=== PATIENT | female | born 1950 | race Caucasian/White ===

== ENCOUNTER → 2017-06-21 | Outpatient (CLI) | payer MEDICARE ==
--- NOTE | 2017-06-21 12:37 | CT ---
EXAMINATION TYPE: CT sinus wo con DATE OF EXAM: 06/21/2017 COMPARISON: NONE HISTORY: Sinusitis CT DLP: 578 mGycm. Automated Exposure Control for Dose Reduction was Utilized. TECHNIQUE: CT scan of the sinuses is performed without contrast, axial images are obtained, coronal r eformatted images are also reviewed. FINDINGS: The ostia medial complexes are patent bilaterally. No contra bullosa or Lani cells are no juan david. Left middle nasal turbinate is either surgically absent or congenitally hypoplastic. There is le ftward nasal septal deviation with a small 5 mm nasal septal spur. The ethmoid air cells, sphenoid si nus, frontal sinuses, and maxillary sinuses are well aerated. Anterior portions of the visualized mas toid air cells are also well aerated. Calvarium appears intact in its visualized anterior portions. T he globes are intact and orbits are symmetric. Lenses are surgically absent. Exam is limited for eval uation of intracranial structures, however incidental note is made of a partially empty sella turcica . Visualized portions of the ventricles appear symmetric with symmetric prominence of the peripheral sulci. Frontal recesses are patent. Visualized portion of mastoid air cells show no abnormal opacification. The globes are intact bilate rally. IMPRESSION: 1. The sinuses are clear and the ostiomeatal complexes are patent bilaterally. 2. Leftward nasal septal deviation and 5 mm leftward nasal septal spur. 3. 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 4. No Lani cells or sofia bullosa. Frontal recesses are patent.
== END | disposition home or self-care (01) ==
LOC: RADCTMAIN 11:41
PROVIDERS: ATTEND Family Medicine
DX: J34.2 Deviated nasal septum (principal); J34.89 Other specified disorders of nose and nasal sinuses
CPT/HCPCS: 70486

== ENCOUNTER → 2017-10-07 | Outpatient (CLI) | payer MEDICARE ==
--- NOTE | 2017-10-08 10:53 | MM ---
Reason for exam: screening (asymptomatic). Last mammogram was performed 1 year and 2 months ago. History: Patient is postmenopausal and history of other cancer. Family history of breast cancer in paternal cousin. Physical Findings: A clinical breast exam by your physician is recommended on an annual basis and results should be correlated with mammographic findings. MG 3D Screening Mammo W/Cad Bilateral CC and MLO view(s) were taken. Prior study comparison: July 25, 2016, bilateral MG 3d screening mammo w/cad. June 16, 2015, bilateral MG screening mammo w CAD. There are scattered fibroglandular densities. Round 7mm mass 2-3 o'clock right breast new from 2013, gradually enlarged from 2014. Otherwise, no significant change. ASSESSMENT: Incomplete: need additional imaging evaluation, BI-RAD 0 RECOMMENDATION: Ultrasound of the right breast. (2-4 o'clock) [facility] will attempt to contact patient to return for ultrasound.
== END | disposition home or self-care (01) ==
LOC: RADMAMWWP 11:13
PROVIDERS: ATTEND Family Medicine
DX: Z12.31 Encounter for screening mammogram for malignant neoplasm of breast (principal)
CPT/HCPCS: 77063; 77067

== ENCOUNTER → 2017-10-16 | Outpatient (CLI) | payer MEDICARE ==
--- NOTE | 2017-10-16 09:46 | USB ---
Reason for exam: additional evaluation requested from abnormal screening. History: Patient is postmenopausal and history of other cancer. Family history of breast cancer in paternal cousin. Physical Findings: Nurse did not find any significant physical abnormalities on exam. US Breast Workup Limited RT Right breast ultrasound demonstrates a 0.6 x 03 x 0.6cm oval, cystic cluster at 2 o'clock. This corresponds well to the mammographic finding and can be reassessed in 6 months by mammogram. These results were verbally communicated with the patient and result sheet given to the patient on 10/16/17. ASSESSMENT: Probably benign, BI-RAD 3 RECOMMENDATION: Follow-up diagnostic mammogram of the right breast in 6 months.
== END | disposition home or self-care (01) ==
LOC: RADUSWWP 08:52
PROVIDERS: ATTEND Family Medicine
DX: R92.8 Other abnormal and inconclusive findings on diagnostic imaging of breast (principal)

== ENCOUNTER 2018-03-25 06:45 | Inpatient (IN) | payer MEDICARE ==
[2018-03-25] MEDS ORDERED: SODIUM CHLORIDE 0.9% 1,000 ML IV STA (07:09)
--- NOTE | 2018-03-25 07:11 | ED ---
Abdominal Pain HPI - General Chief Complaint: Abdominal Pain Stated Complaint: Abdominal Pain Time Seen by Provider: 03/25/18 07:02 Source: patient, RN notes reviewed Mode of arrival: wheelchair Limitations: no limitations - History of Present Illness Initial Comments: 68-year-old female presents emergency Department chief complaint of left lower quadrant abdominal pain. Patient states has been present for 1 week. Patient states that pain is progressively getting worse and not improving. She initially thought it was related to constipation so she took some laxatives, Fleet enema had large bowel movement with no relief of symptoms. She does have a history of diverticulitis. Patient denies any dysuria no hematuria no melena hematochezia. Patient had no fever no chills no night sweats. - Related Data Home Medications Medication Instructions Recorded Confirmed Divalproex [Depakote] 500 mg PO DAILY 12/12/15 03/25/18 Lansoprazole [Prevacid] 30 mg PO BID 12/12/15 03/25/18 Levothyroxine Sodium [Synthroid] 25 mcg PO DAILY 12/12/15 03/25/18 Multivitamins, Thera [Multivitamin] 1 tab PO DAILY 12/12/15 03/25/18 Venlafaxine HCl ER [Effexor XR] 300 mg PO DAILY 12/12/15 03/25/18 clonazePAM [KlonoPIN] 1.5 mg PO BID 12/12/15 03/25/18 Ranitidine HCl [Zantac] 300 mg PO DAILY 12/15/15 03/25/18 Biotin 10,000 mcg PO DAILY 03/25/18 03/25/18 Cholecalciferol [Vitamin D3] 1,000 unit PO DAILY 03/25/18 03/25/18 Docusate [Colace] 100 mg PO DAILY 03/25/18 03/25/18 Fish Oil/Dha/Epa [Fish Oil 1,200 1 cap PO DAILY 03/25/18 03/25/18 mg Fish Oil] buPROPion XL [Wellbutrin Xl] 450 mg PO DAILY 03/25/18 03/25/18 lamoTRIgine [LaMICtal] 50 mg PO BID 03/25/18 03/25/18 Allergies Allergy/AdvReac Type Severity Reaction Status Date / Time naproxen [From Naprosyn] AdvReac Hallucinati Verified 03/25/18 08:23 ons Review of Systems ROS Statement: Those systems with pertinent positive or pertinent negative responses have been documented in the HPI. ROS Other: All systems not noted in ROS Statement are negative. Past Medical History Past Medical History: No Reported History History of Any Multi-Drug Resistant Organisms: None Reported Additional Past Surgical History / Comment(s): left eye surgery, left fallopian tube and ovary removed. Past Psychological History: Depression Smoking Status: Never smoker Past Alcohol Use History: None Reported Past Drug Use History: None Reported General Exam Limitations: no limitations General appearance: alert, in no apparent distress Head exam: Present: atraumatic, normocephalic, normal inspection Respiratory exam: Present: normal lung sounds bilaterally. Absent: respiratory distress, wheezes, rales, rhonchi, stridor Cardiovascular Exam: Present: regular rate, normal rhythm, normal heart sounds. Absent: systolic murmur, diastolic murmur, rubs, gallop, clicks GI/Abdominal exam: Present: soft, tenderness (Moderate left lower quadrant tenderness), normal bowel sounds. Absent: distended, guarding, rebound, rigid Back exam: Absent: CVA tenderness (R), CVA tenderness (L) Course Vital Signs 03/25/18 06:46 Temperature 97.7 F Pulse Rate 79 Respiratory 16 Rate Blood Pressure 105/72 O2 Sat by Pulse 95 Oximetry Medical Decision Making - Lab Data Result diagrams: 03/25/18 07:22 03/25/18 07:22 Lab Results 03/25/18 03/25/18 03/25/18 Range/Units 07:22 07:22 07:22 WBC 12.5 H (3.8-10.6) k/uL RBC 4.62 (3.80-5.40) m/uL Hgb 13.4 (11.4-16.0) gm/dL Hct 41.6 (34.0-46.0) % MCV 89.9 (80.0-100.0) fL MCH 28.9 (25.0-35.0) pg MCHC 32.2 (31.0-37.0) g/dL RDW 12.7 (11.5-15.5) % Plt Count 258 (150-450) k/uL Neutrophils % 73 % Lymphocytes % 16 % Monocytes % 7 % Eosinophils % 1 % Basophils % 1 % Neutrophils # 9.1 H (1.3-7.7) k/uL Lymphocytes # 2.0 (1.0-4.8) k/uL Monocytes # 0.9 (0-1.0) k/uL Eosinophils # 0.2 (0-0.7) k/uL Basophils # 0.1 (0-0.2) k/uL PT (9.0-12.0) sec INR (<1.2) APTT (22.0-30.0) sec Sodium 140 (137-145) mmol/L Potassium 4.4 (3.5-5.1) mmol/L Chloride 105 (98-107) mmol/L Carbon Dioxide 28 (22-30) mmol/L Anion Gap 7 mmol/L BUN 13 (7-17) mg/dL Creatinine 0.91 (0.52-1.04) mg/dL Est GFR (CKD-EPI)AfAm 75 (>60 ml/min/1.73 sqM) Est GFR (CKD-EPI)NonAf 65 (>60 ml/min/1.73 sqM) Glucose 121 H (74-99) mg/dL Plasma Lactic Acid Jason 1.8 (0.7-2.0) mmol/L Calcium 9.0 (8.4-10.2) mg/dL Total Bilirubin 0.5 (0.2-1.3) mg/dL AST 39 H (14-36) U/L ALT 29 (9-52) U/L Alkaline Phosphatase 67 (38-126) U/L Total Protein 6.4 (6.3-8.2) g/dL Albumin 3.7 (3.5-5.0) g/dL Amylase 61 (30-110) U/L Lipase 81 (23-300) U/L Urine Color Urine Appearance (Clear) Urine pH (5.0-8.0) Ur Specific [place] (1.001-1.035) Urine Protein (Negative) Urine Glucose (UA) (Negative) Urine Ketones (Negative) Urine Blood (Negative) Urine Nitrite (Negative) Urine Bilirubin (Negative) Urine Urobilinogen (<2.0) mg/dL Ur Leukocyte Esterase (Negative) Urine RBC (0-5) /hpf Urine WBC (0-5) /hpf Ur Squamous Epith Cells (0-4) /hpf Urine Bacteria (None) /hpf Hyaline Casts (0-2) /lpf Urine Mucus (None) /hpf 03/25/18 03/25/18 Range/Units 07:22 07:22 WBC (3.8-10.6) k/uL RBC (3.80-5.40) m/uL Hgb (11.4-16.0) gm/dL Hct (34.0-46.0) % MCV (80.0-100.0) fL MCH (25.0-35.0) pg MCHC (31.0-37.0) g/dL RDW (11.5-15.5) % Plt Count (150-450) k/uL Neutrophils % % Lymphocytes % % Monocytes % % Eosinophils % % Basophils % % Neutrophils # (1.3-7.7) k/uL Lymphocytes # (1.0-4.8) k/uL Monocytes # (0-1.0) k/uL Eosinophils # (0-0.7) k/uL Basophils # (0-0.2) k/uL PT 9.4 (9.0-12.0) sec INR 0.9 (<1.2) APTT 22.8 (22.0-30.0) sec Sodium (137-145) mmol/L Potassium (3.5-5.1) mmol/L Chloride (98-107) mmol/L Carbon Dioxide (22-30) mmol/L Anion Gap mmol/L BUN (7-17) mg/dL Creatinine (0.52-1.04) mg/dL Est GFR (CKD-EPI)AfAm (>60 ml/min/1.73 sqM) Est GFR (CKD-EPI)NonAf (>60 ml/min/1.73 sqM) Glucose (74-99) mg/dL Plasma Lactic Acid Jason (0.7-2.0) mmol/L Calcium (8.4-10.2) mg/dL Total Bilirubin (0.2-1.3) mg/dL AST (14-36) U/L ALT (9-52) U/L Alkaline Phosphatase (38-126) U/L Total Protein (6.3-8.2) g/dL Albumin (3.5-5.0) g/dL Amylase (30-110) U/L Lipase (23-300) U/L Urine Color Yellow Urine Appearance Cloudy H (Clear) Urine pH 6.0 (5.0-8.0) Ur Specific [place] 1.010 (1.001-1.035) Urine Protein 1+ H (Negative) Urine Glucose (UA) Negative (Negative) Urine Ketones Negative (Negative) Urine Blood Negative (Negative) Urine Nitrite Negative (Negative) Urine Bilirubin Negative (Negative) Urine Urobilinogen <2.0 (<2.0) mg/dL Ur Leukocyte Esterase Small H (Negative) Urine RBC 1 (0-5) /hpf Urine WBC 4 (0-5) /hpf Ur Squamous Epith Cells 3 (0-4) /hpf Urine Bacteria Rare H (None) /hpf Hyaline Casts 23 H (0-2) /lpf Urine Mucus Few H (None) /hpf Disposition Clinical Impression: Acute diverticulitis Disposition: ADMITTED IP TO THIS [facility] Condition: Stable Referrals: Diamante Bynum MD [Primary Care Provider] - 1-2 days
[2018-03-25 07:41] LABS: Basophils # (A) 0.1 k/uL (0-0.2); Basophils % (A) 1 %; Eosinophils # (A) 0.2 k/uL (0-0.7); Eosinophils % (A) 1 %; HCT 41.6 % (34.0-46.0); HGB 13.4 gm/dL (11.4-16.0); Lymphocytes % (A) 16 %; MCH 28.9 pg (25.0-35.0); MCHC 32.2 g/dL (31.0-37.0); MCV 89.9 fL (80.0-100.0); Mean Platelet Volume 7.6; Monocytes # (A) 0.9 k/uL (0-1.0); Monocytes % (A) 7 %; Neutrophils # (A) 9.1 k/uL (1.3-7.7); Neutrophils % (A) 73 %; Platelet Count 258 k/uL (150-450); RBC 4.62 m/uL (3.80-5.40); RDW 12.7 % (11.5-15.5); WBC 12.5 k/uL (3.8-10.6)
[2018-03-25 07:46] LABS: Appearance,Urine Cloudy (Clear); Bacteria,Urine Rare /hpf; Bilirubin,Urine Negative (Negative); Blood,Urine Negative (Negative); Color,Urine Yellow; Glucose,Urine (UA) Negative (Negative); Hyaline Casts,Urine 23 /lpf (0-2); Ketones,Urine Negative (Negative); Leukocyte Esterase,Urine Small (Negative); Mucus,Urine Few /hpf; Nitrite,Urine Negative (Negative); Protein,Urine 1+ (Negative); RBC,Urine 1 /hpf (0-5); Squamous Epithelial Cell,Urine 3 /hpf (0-4); Urobilinogen,Urine <2.0 mg/dL (<2.0); WBC,Urine 4 /hpf (0-5)
[2018-03-25 07:53] LABS: Albumin 3.7 g/dL (3.5-5.0); INR 0.9 (<1.2); Partial Thromboplastin Time 22.8 sec (22.0-30.0); Potassium 4.4 mmol/L (3.5-5.1); Prothrombin Time 9.4 sec (9.0-12.0); Total Bilirubin 0.5 mg/dL (0.2-1.3); Total Protein 6.4 g/dL (6.3-8.2)
[2018-03-25] MEDS ORDERED: ACETAMINOPHEN TAB 325 MG TAB PO STA (08:13)
--- NOTE | 2018-03-25 08:49 | CT ---
EXAMINATION TYPE: CT abdomen pelvis w con DATE OF EXAM: 03/25/2018 HISTORY: LLQ pain CT DLP: 1172mGycm Automated Exposure Control for Dose Reduction was Utilized. CONTRAST: CT scan of the abdomen and pelvis is performed without oral but with IV Contrast, patient injected wi th 100 mL of Isovue 300. COMPARISON: CT abdomen and pelvis December 09, 2015 FINDINGS: LUNG BASES: No significant abnormality is appreciated. LIVER/GB: No significant abnormality is appreciated. PANCREAS: No significant abnormality is seen. SPLEEN: No significant abnormality is seen. ADRENALS: No significant abnormality is seen. KIDNEYS: No significant abnormality is seen. BOWEL: Evaluation bowel is slightly suboptimal secondary to lack of enteric contrast. There is no malka picious small or large bowel dilatation. There are few scattered proximal to mid colonic diverticula with slightly more prominent diverticula seen in the left and sigmoid colon. In the proximal sigmoid colon in the left lower quadrant there is mild to moderate wall thickening with mild ill-defined flui d and fat stranding consistent with acute diverticulitis centered in the left upper to mid pelvis tiffani r axial image 65. No well-formed fluid collection or abscess is identified. No pneumoperitoneum is no juan david. UTERUS/ADNEXA: Anteverted uterus is identified. LYMPH NODES: No greater than 1cm abdominal or pelvic lymph nodes are appreciated. OSSEOUS STRUCTURES: There is levoconvex scoliosis centered at L3 level redemonstrated. There is moder ate to severe spurring and disc space narrowing right L3-L4 level. Posterior spur disc complex efface s anterior thecal sac L3-L4 level. Prominent disc herniation L4-L5 level is seen sagittal image 31 an d axial image 47 effacing anterior thecal sac not significantly changed from prior. Spine is straight ened on sagittal images. Mild to moderate degenerative changes in both hips with spurring and joint s pace loss is present. OTHER: No significant additional abnormality is seen. IMPRESSION: Mild to moderate acute diverticulitis centered in the proximal sigmoid colon of the left upper to mid pelvis.
[2018-03-25] MEDS ORDERED: LEVOFLOXACIN 750MG-D5W PMX 750 MG in DEXTROSE/WATER 1 150ML.BAG IVPB STA (08:54)
[2018-03-25] MEDS ORDERED: NALOXONE 0.4 MG/ML 1 ML VIAL IV PRN (08:55)
[2018-03-25] MEDS ORDERED: MORPHINE SULFATE 4 MG/ML SYRINGE IV PRN (08:55)
[2018-03-25] MEDS ORDERED: ONDANSETRON 4 MG/2 ML VIAL IVP PRN (08:55)
[2018-03-25] MEDS ORDERED: metroNIDAZOLE-NS PMX 500 MG in SALINE 1 100ML.BAG IVPB STA (08:56)
[2018-03-25] MEDS ORDERED: clonazePAM 0.5 MG TAB PO SCH ×2 (09:45→17:43)
[2018-03-25] MEDS ORDERED: lamoTRIgine 25 MG TAB PO SCH (09:45)
[2018-03-25] MEDS: buPROPion XL 150 MG TAB.ER.24H PO SCH (10:09)
[2018-03-25] MEDS: DOCUSATE 100 MG CAP PO SCH (10:10)
[2018-03-25] MEDS: VENLAFAXINE HCL ER 150 MG CAP PO SCH (10:10)
[2018-03-25] MEDS: LEVOTHYROXINE 25 MCG TAB PO SCH (10:10)
[2018-03-25] MEDS: DIVALPROEX 500 MG TABLET.DR PO SCH (10:13)
[2018-03-25] MEDS: HYDROcodone/APAP 5-325MG 1 EACH TAB PO PRN ×3 (10:14→21:45)
[2018-03-25] MEDS: SODIUM CHLORIDE 0.9% 1,000 ML IV SCH (10:15)
[2018-03-25] MEDS: PANTOPRAZOLE 40 MG/10 ML VIAL IV SCH (10:16)
[2018-03-25] MEDS ORDERED: clonazePAM 1 MG TAB PO STA (12:09)
[2018-03-25] MEDS ORDERED: clonazePAM 0.5 MG TAB PO STA (12:33)
--- NOTE | 2018-03-25 13:21 | P.HPIM ---
History of Present Illness H&P Date: 03/25/18 Chief Complaint: abdominal pain This 60-year-old female patient of Dr. parkinson. Patient presented to emergency department with some planes of left lower quadrant abdominal pain. Patient states symptoms have been present for 1 week. Patient states she tried laxatives and a Fleet enema aching she was constipated but provided no relief of the symptoms at that time. Patient does have a known past medical history of diverticulitis approximately 20 years ago. Additional medical history includes Depression, Martinez's Palsy, left eye surgery and left fallopian tube and ovary removal. CT of abdomen and pelvis completed showing mild to moderate acute diverticulitis centered in the proximal sigmoid colon of the left upper to mid pelvis. Patient does state she has a scheduled colonoscopy next week with Dr. Quezada. Patient is requesting a GI services be consulted. WBC count 12.5. Patient has been started on Flagyl and Levaquin. Blood culture has been ordered. Patient also getting Protonix IV daily. Patient denies vomiting or diarrhea. Does state she has a bit of nausea. Patient does states she's been able to tolerate a clear liquid diet. Patient denies chest pain or shortness breath. Patient denies urinary burning or frequency. Review of Systems Please refer to HPI otherwise unremarkable Past Medical History Past Medical History: No Reported History History of Any Multi-Drug Resistant Organisms: None Reported Additional Past Surgical History / Comment(s): left eye surgery, left fallopian tube and ovary removed. Past Psychological History: Depression Smoking Status: Never smoker Past Alcohol Use History: None Reported Past Drug Use History: None Reported Medications and Allergies Home Medications Medication Instructions Recorded Confirmed Type Divalproex [Depakote] 500 mg PO DAILY 12/12/15 03/25/18 History Lansoprazole [Prevacid] 30 mg PO BID 12/12/15 03/25/18 History Levothyroxine Sodium [Synthroid] 25 mcg PO DAILY 12/12/15 03/25/18 History Multivitamins, Thera [Multivitamin] 1 tab PO DAILY 12/12/15 03/25/18 History Venlafaxine HCl ER [Effexor XR] 300 mg PO DAILY 12/12/15 03/25/18 History clonazePAM [KlonoPIN] 1.5 mg PO BID 12/12/15 03/25/18 History Ranitidine HCl [Zantac] 300 mg PO DAILY 12/15/15 03/25/18 History Biotin 10,000 mcg PO DAILY 03/25/18 03/25/18 History Cholecalciferol [Vitamin D3] 1,000 unit PO DAILY 03/25/18 03/25/18 History Docusate [Colace] 100 mg PO DAILY 03/25/18 03/25/18 History Fish Oil/Dha/Epa [Fish Oil 1,200 1 cap PO DAILY 03/25/18 03/25/18 History mg Fish Oil] buPROPion XL [Wellbutrin Xl] 450 mg PO DAILY 03/25/18 03/25/18 History lamoTRIgine [LaMICtal] 50 mg PO BID 03/25/18 03/25/18 History Allergies Allergy/AdvReac Type Severity Reaction Status Date / Time naproxen [From Naprosyn] AdvReac Hallucinati Verified 03/25/18 08:23 ons Physical Exam Vitals: Vital Signs Temp Pulse Resp BP Pulse Ox 03/25/18 09:22 73 18 133/85 98 03/25/18 06:46 97.7 F 79 16 105/72 95 Intake and Output 03/24/18 03/25/18 03/25/18 22:59 06:59 14:59 Other: Weight 76.657 kg Head normocephalic Neck supple Lungs clear to auscultation bilaterally no wheezing or crackles Heart regular rate and rhythm S1-S2, no rub or gallop Abdomen is soft nontender nondistended positive bowel sounds no hepatosplenomegaly Extremities no edema Neuro alert and orientated to 3 Results CBC & Chem 7: 03/25/18 07:22 03/25/18 07:22 Labs: Abnormal Lab Results - Last 24 Hours (Table) 03/25/18 03/25/18 03/25/18 Range/Units 07:22 07:22 07:22 WBC 12.5 H (3.8-10.6) k/uL Neutrophils # 9.1 H (1.3-7.7) k/uL Glucose 121 H (74-99) mg/dL AST 39 H (14-36) U/L Urine Appearance Cloudy H (Clear) Urine Protein 1+ H (Negative) Ur Leukocyte Esterase Small H (Negative) Urine Bacteria Rare H (None) /hpf Hyaline Casts 23 H (0-2) /lpf Urine Mucus Few H (None) /hpf Assessment and Plan Assessment: 1. Nausea related to diverticulitis. CT of abdomen completed showing mild to moderate acute diverticulitis 100 and proximal sigmoid colon of the left upper to mid pelvis. White blood cell 12.5. Patient started on Levaquin and Flagyl for antibiotics. Patient placed on clear liquid diet. Patient requesting Dr. Peterson be consulted 2. History of diverticulitis. Patient states last episode was possibly 20 years ago. 3. History of depression. Home meds have been resumed 4. History of Martinez's palsy 5. Hypothyroidism continue Synthroid 6. Increased falls over the past couple months. Patient also states she has been more forgetful over the past couple months. Patient does have a history of Martinez's palsy. Neurology has been consulted. GI prophylaxis Protonix and DVT prophylaxis Lovenox A.m. labs have been reordered Time with Patient: Greater than 30 (Greater than 60% of the total time spent in counseling and coordination of care. I performed an examination of the patient and discussed their management with the Nurse Practitioner. I have reviewed the Nurse Practitioner's notes and agree with the documented findings and plan of care)
[2018-03-25] MEDS: metroNIDAZOLE-NS PMX 500 MG in SALINE 1 100ML.BAG IVPB SCH (16:56)
[2018-03-25] MEDS: ACETAMINOPHEN TAB 325 MG TAB PO PRN (17:48)
[2018-03-25] MEDS: lamoTRIgine 25 MG TAB PO SCH (19:18)
--- NOTE | 2018-03-25 20:23 | CONS ---
CONSULTATION DATE OF CONSULTATION: 03/25/2018. CHIEF COMPLAINT: Recurrent falls. HISTORY OF PRESENT ILLNESS: Mrs Ellison is a pleasant 68-year-old female who is being evaluated by the neurology service per the request of Dr. Evans for recurrent falls. The patient was brought into [facility] Emergency Room with complaints of abdominal pain and she is being worked up for possible acute diverticulitis. She also complains of recurrent falling episodes. She states that over the past 6 months, she has been falling frequently and this has gradually worsened over the past few months. She is now falling once every day or every other day. She states that she sometimes trips and sometimes loses her balance. She denies any tremors and denies any urinary incontinence. She denies any lower extremity numbness or tingling. Her comprehensive metabolic profile on admission showed mild hyperglycemia at 121 and slightly elevated AST at 39. Her CBC showed mild leukocytosis at 12.5 and was otherwise normal. Her urinalysis showed 4 WBCs with small leukocyte esterase. She has been started on Levaquin and Flagyl for her acute diverticulitis. Gastroenterology has been consulted. She denies any vertigo. PAST MEDICAL HISTORY: Anxiety disorder, depression, migraine headaches, history of Martinez palsy, diverticulosis. PAST SURGICAL HISTORY: Left eye surgery, left ovary and fallopian tube resection. SOCIAL HISTORY: She denies any tobacco, alcohol or drug use. FAMILY HISTORY: Positive for Parkinson disease. HOME MEDICATIONS: Reviewed in the chart. ALLERGIES: NAPROXEN. REVIEW OF SYSTEM: As mentioned above and otherwise negative. PHYSICAL EXAM: Vital signs show a temperature of 97.5, pulse 76, respirations 18, blood pressure 114/69. GENERAL APPEARANCE: The patient is a well-developed female who appears to be in no acute distress. HEENT: Normocephalic, atraumatic. Left facial weakness is seen. Neck is supple with no masses felt. CARDIOVASCULAR: Regular rate and rhythm. ABDOMEN: Mild tenderness to palpation is felt with no distention seen. Extremities showed no edema or clubbing. NEUROLOGICAL: The patient is alert, aware and oriented x3. Speech and language are normal. Strength is full in all 4 extremities. Sensory was normal to light touch in all 4 extremities. No tremors or seizure-like activity is seen. Cranial nerve testing showed left facial weakness involving the upper and lower face. IMPRESSION: 1. Recurrent falls. 2. History of migraine headaches. 3. Depression. 4. Acute diverticulitis. RECOMMENDATION: The patient has been having frequent falls over the past 6 months and these have been getting more frequent lately. Her neurological examination is normal. In reviewing her home medications, she does take Klonopin 1.5 mg 3 times daily. Benzodiazepine can significantly increase the risk of falling, especially in elderly patients. I had a lengthy discussion with her regarding this and I do recommend weaning her slowly off of Klonopin. For now, I will reduce her dose to 1 mg 3 times daily and over the next few months, she should be weaned off of benzodiazepine completely. She does see Dr. Camacho in the outpatient setting. I will consult Physical Therapy to evaluate and treat. Continue your current workup and management regarding her abdominal pain. I will continue to follow with you. Further recommendations to follow. Thank you for allowing me to participate in the care of your patient. If you have any questions, please feel free to contact me. EWA / TRISTIAN: [phone] /
[2018-03-25] MEDS: clonazePAM 1 MG TAB PO SCH (21:46)
[2018-03-26] MEDS: ACETAMINOPHEN TAB 325 MG TAB PO PRN ×3 (00:22→17:56)
[2018-03-26] MEDS: metroNIDAZOLE-NS PMX 500 MG in SALINE 1 100ML.BAG IVPB SCH ×4 (00:23→23:55)
[2018-03-26] MEDS: SODIUM CHLORIDE 0.9% 1,000 ML IV SCH ×2 (04:21→14:37)
[2018-03-26] MEDS: HYDROcodone/APAP 5-325MG 1 EACH TAB PO PRN ×2 (05:43→10:09)
[2018-03-26] MEDS: LEVOTHYROXINE 25 MCG TAB PO SCH (05:43)
[2018-03-26] MEDS: clonazePAM 1 MG TAB PO SCH ×3 (07:32→21:12)
[2018-03-26] MEDS: buPROPion XL 150 MG TAB.ER.24H PO SCH (07:33)
[2018-03-26] MEDS: PANTOPRAZOLE 40 MG/10 ML VIAL IV SCH (07:34)
[2018-03-26] MEDS: DOCUSATE 100 MG CAP PO SCH (07:34)
[2018-03-26] MEDS: ENOXAPARIN 40 MG/0.4 ML SYRINGE SQ SCH ×2 (07:34→07:47)
[2018-03-26] MEDS: lamoTRIgine 25 MG TAB PO SCH ×2 (07:34→07:35)
[2018-03-26] MEDS: DIVALPROEX 500 MG TABLET.DR PO SCH (07:34)
[2018-03-26] MEDS: LEVOFLOXACIN 750MG-D5W PMX 750 MG in DEXTROSE/WATER 1 150ML.BAG IVPB SCH (07:35)
[2018-03-26] MEDS: VENLAFAXINE HCL ER 150 MG CAP PO SCH (07:35)
[2018-03-26 08:51] LABS: Basophils % (A) 1 %; Eosinophils # (A) 0.1 k/uL (0-0.7); Eosinophils % (A) 3 %; HCT 35.5 % (34.0-46.0); HGB 11.5 gm/dL (11.4-16.0); Lymphocytes # (A) 1.4 k/uL (1.0-4.8); Lymphocytes % (A) 31 %; MCH 29.2 pg (25.0-35.0); MCHC 32.3 g/dL (31.0-37.0); MCV 90.3 fL (80.0-100.0); Mean Platelet Volume 7.3; Monocytes # (A) 0.4 k/uL (0-1.0); Monocytes % (A) 9 %; Neutrophils # (A) 2.4 k/uL (1.3-7.7); Neutrophils % (A) 54 %; Platelet Count 224 k/uL (150-450); RBC 3.93 m/uL (3.80-5.40); RDW 12.6 % (11.5-15.5); WBC 4.5 k/uL (3.8-10.6)
--- NOTE | 2018-03-26 09:00 | P.CONS ---
<Darcy Dixon - Last Filed: 03/26/18 10:07> History of Present Illness - Reason for Consult Consult date: 03/26/18 Abdominal pain diverticulitis Requesting physician: Gonsalo Evans - Chief Complaint abdominal pain - History of Present Illness 68-year-old female with a history of falls, Martinez's palsy, depression, colonic diverticulosis presents with 2 week history of left lower quadrant abdominal pain. Denies fever chills hematemesis hematochezia or melena. 2 weeks ago she felt constipated no bowel movement for a few days with increased left lower quadrant discomfort. She tried [id number] laxatives and enema with minimal relief. Pain worsened and she presented herself to the ER for further evaluation. Last colonoscopy in 2012. She is scheduled for re-surveillance colonoscopy next with Dr. Peterson. Last episode of diverticulitis was more than 20 years ago. No consumption of seeds nuts or changes in diet. No weight loss. Admission white count 12.5. Hemoglobin 13.4. CT abdomen and pelvis mild to moderate acute diverticulitis centered in the proximal sigmoid colon without abscess. Review of Systems Constitutional: Denies fever, chills, sweats, weight gain, or loss. HEENT: Negative for migraines, blurred vision or loss, earaches, drainage, tinnitus, oral mucosal lesions, dysphagia, or odynophagia. CARDIAC: Negative for chest pain, arrhythmias, or palpitation. RESPIRATORY: Negative for shortness of breath, hemoptysis, cough, or sputum production. GI: See HPI for pertinent findings. : Negative for hematuria, urgency, frequency, polyuria, or dysuria. GYNc: Negative vaginal discharge. MUSCULOSKELETAL: History of falls. Martinez's palsy. Negative for muscle aches, swelling, arthritis, and arthralgias. NEUROLOGIC: Negative for stroke or TIA. ENDOCRINE: Negative for thyroid problems. SKIN: Negative for rash or itching. PSYCHIATRIC: History of depression. Past Medical History Past Medical History: No Reported History Additional Past Medical History / Comment(s): Milton Palsy, diverticulitis 20 years ago History of Any Multi-Drug Resistant Organisms: None Reported Additional Past Surgical History / Comment(s): left eye surgery, left fallopian tube and ovary removed. Past Psychological History: Depression Smoking Status: Never smoker Past Alcohol Use History: None Reported Past Drug Use History: None Reported - Past Family History Father Additional Family Medical History / Comment(s): PARKINSONS. uncle also had. Medications and Allergies Home Medications Medication Instructions Recorded Confirmed Type Divalproex [Depakote] 500 mg PO DAILY 12/12/15 03/25/18 History Lansoprazole [Prevacid] 30 mg PO BID 12/12/15 03/25/18 History Levothyroxine Sodium [Synthroid] 25 mcg PO DAILY 12/12/15 03/25/18 History Multivitamins, Thera [Multivitamin] 1 tab PO DAILY 12/12/15 03/25/18 History Venlafaxine HCl ER [Effexor XR] 300 mg PO DAILY 12/12/15 03/25/18 History clonazePAM [KlonoPIN] 1.5 mg PO BID 12/12/15 03/25/18 History Ranitidine HCl [Zantac] 300 mg PO DAILY 12/15/15 03/25/18 History Biotin 10,000 mcg PO DAILY 03/25/18 03/25/18 History Cholecalciferol [Vitamin D3] 1,000 unit PO DAILY 03/25/18 03/25/18 History Docusate [Colace] 100 mg PO DAILY 03/25/18 03/25/18 History Fish Oil/Dha/Epa [Fish Oil 1,200 1 cap PO DAILY 03/25/18 03/25/18 History mg Fish Oil] buPROPion XL [Wellbutrin Xl] 450 mg PO DAILY 03/25/18 03/25/18 History lamoTRIgine [LaMICtal] 50 mg PO BID 03/25/18 03/25/18 History Allergies Allergy/AdvReac Type Severity Reaction Status Date / Time naproxen [From Naprosyn] AdvReac Hallucinati Verified 03/25/18 08:23 ons Physical Exam Vitals: Vital Signs Temp Pulse Pulse Pulse Resp BP BP 03/26/18 06:00 97.8 F 71 20 115/78 03/25/18 23:00 97.8 F 75 20 109/71 03/25/18 18:29 18 03/25/18 17:20 97.5 F L 74 18 120/70 03/25/18 12:12 97.5 F L 76 18 114/69 03/25/18 09:22 73 18 133/85 Pulse Ox 08/22/18 06:00 93 L 03/25/18 23:00 96 03/25/18 18:29 03/25/18 17:20 95 03/25/18 12:12 96 03/25/18 09:22 98 Intake and Output 03/25/18 03/26/18 03/26/18 22:59 06:59 14:59 Intake Total 500 100 Balance 500 100 Intake: Oral 500 100 Other: # Voids 1 2 Weight 76.657 kg General appearance: The patient is alert, oriented, in no acute distress. HET: Head is normocephalic and atraumatic. Pupils are equal and reactive. Oropharynx is clear without lesions. Neck: Supple without lymphadenopathy. Trachea midline. Heart: S1 S2. Regular rate and rhythm. Lungs: No crackles or wheezes are heard. Abdomen: Soft, mild left lower quadrant tenderness, nondistended with bowel sounds. No peritoneal signs. No palpable organomegaly or masses. Extremities: Normal skin color and turgor. No cyanosis, rash, ulceration, clubbing, or edema. Radial and pedal pulses are 2/4 bilaterally. Neurological: No focal deficits. Strength and sensation are grossly intact. Results CBC & Chem 7: 03/26/18 08:01 03/26/18 08:01 Labs: Abnormal Lab Results - Last 24 Hours (Table) 03/25/18 03/25/18 03/25/18 Range/Units 07:22 07:22 07:22 WBC 12.5 H (3.8-10.6) k/uL Neutrophils # 9.1 H (1.3-7.7) k/uL Glucose 121 H (74-99) mg/dL AST 39 H (14-36) U/L Urine Appearance Cloudy H (Clear) Urine Protein 1+ H (Negative) Ur Leukocyte Esterase Small H (Negative) Urine Bacteria Rare H (None) /hpf Hyaline Casts 23 H (0-2) /lpf Urine Mucus Few H (None) /hpf CT scan - abdomen: report reviewed (Dr. Kemp) Assessment and Plan (1) Acute diverticulitis Narrative/Plan: 68-year-old female with a history of colonic diverticulosis mild leukocytosis presents with 2 week history of left lower quadrant abdominal pain CT imaging supportive of proximal sigmoid diverticulosis without abscess. Current Visit: Yes Status: Acute Code(s): K57.92 - DVTRCLI OF INTEST, PART UNSP, W/O PERF OR ABSCESS W/O BLEED SNOMED Code(s): 570849277 Plan: 1. Clear liquid diet may advance to full liquids for dinner if morning chemistries are stable and abdominal pain is improving. 2. Stool softener Senokot-S 2 tabs daily. 3. Will reschedule colonoscopy mid-April with Dr. Peterson. 4. Continue the IV antibiotics; Levaquin/Flagyl. Patient will require additional 7-10 days of antibiotics on discharge. Will follow closely with you. CBC in a.m. Thank you for this kind referral and the opportunity to participate in the care of your patient. This consultation was discussed with Dr. Kemp. The impression and plan of care have been directed as dictated. <Ricardo Kemp - Last Filed: 03/28/18 10:27> Physical Exam Vitals: Vital Signs Temp Pulse Resp BP Pulse Ox 03/28/18 06:43 97.9 F 73 18 127/76 94 L 03/27/18 23:00 96.4 F L 80 16 117/61 95 03/27/18 14:51 98.5 F 86 17 134/54 99 Intake and Output 03/27/18 03/28/18 03/28/18 22:59 06:59 14:59 Intake Total 100 Balance 100 Intake: Oral 100 Other: Voiding Method Toilet # Voids 1 1 # Bowel Movements 1 Results CBC & Chem 7: 03/28/18 08:31 03/28/18 08:31 Labs: Abnormal Lab Results - Last 24 Hours (Table) 03/28/18 Range/Units 08:31 Carbon Dioxide 32 H (22-30) mmol/L Glucose 124 H (74-99) mg/dL AST 40 H (14-36) U/L Total Protein 6.0 L (6.3-8.2) g/dL Microbiology - Last 24 Hours (Table) 03/25/18 09:23 Blood Culture - Preliminary Blood No Growth after 48 hours Assessment and Plan (1) Acute diverticulitis Current Visit: Yes Status: Acute Code(s): K57.92 - DVTRCLI OF INTEST, PART UNSP, W/O PERF OR ABSCESS W/O BLEED SNOMED Code(s): 391992814 Plan: The patient has been seen and evaluated, and the plan of care discussed. I agree with the above recommendations and assessment and plan.
[2018-03-26 09:12] LABS: ALT 28 U/L (9-52); AST 33 U/L (14-36); Albumin 3.1 g/dL (3.5-5.0); Alkaline Phosphatase 49 U/L (38-126); Anion Gap 3 mmol/L; Blood Urea Nitrogen 8 mg/dL (7-17); Calcium 8.8 mg/dL (8.4-10.2); Carbon Dioxide 29 mmol/L (22-30); Chloride 110 mmol/L (98-107); Glucose 94 mg/dL (74-99); Potassium 4.7 mmol/L (3.5-5.1); Sodium 142 mmol/L (137-145); Total Bilirubin 0.3 mg/dL (0.2-1.3); Total Protein 5.6 g/dL (6.3-8.2)
--- NOTE | 2018-03-26 11:47 | P.PN ---
Subjective Progress Note Date: 03/26/18 This 60-year-old female patient of Dr. parkinson. Patient presented to emergency department with some planes of left lower quadrant abdominal pain. Patient states symptoms have been present for 1 week. Patient states she tried laxatives and a Fleet enema aching she was constipated but provided no relief of the symptoms at that time. Patient does have a known past medical history of diverticulitis approximately 20 years ago. Additional medical history includes Depression, Martinez's Palsy, left eye surgery and left fallopian tube and ovary removal. CT of abdomen and pelvis completed showing mild to moderate acute diverticulitis centered in the proximal sigmoid colon of the left upper to mid pelvis. Patient does state she has a scheduled colonoscopy next week with Dr. Quezada. Patient is requesting a GI services be consulted. WBC count 12.5. Patient has been started on Flagyl and Levaquin. Blood culture has been ordered. Patient also getting Protonix IV daily. Patient denies vomiting or diarrhea. Does state she has a bit of nausea. Patient does states she's been able to tolerate a clear liquid diet. Patient denies chest pain or shortness breath. Patient denies urinary burning or frequency. On 03/26/2018 patient is currently resting comfortably bed. Patient states that abdominal pain has improved. Patient is currently tolerating clear diet. Patient remains on Flagyl and Levaquin for antibiotics. Patient denies any vomiting or diarrhea this time. Does report mild abdominal tenderness with palpation. Denies chest pain or shortness of breath. Denies any urinary burning or frequency. Objective - Vital Signs Vital signs: Vital Signs Temp 97.8 F 03/26/18 06:00 Pulse 71 03/26/18 06:00 Resp 20 03/26/18 06:00 BP 115/78 03/26/18 06:00 Pulse Ox 93 L 03/26/18 06:00 Intake & Output 03/25/18 03/26/18 03/26/18 18:59 06:59 18:59 Intake Total 600 250 Balance 600 250 Weight 76.657 kg Intake: Oral 600 250 Other: Voiding Method Toilet # Voids 2 - Exam Head normocephalic Neck supple Lungs clear to auscultation bilaterally no wheezing or crackles Heart regular rate and rhythm S1-S2, no rub or gallop Abdomen right upper quadrant mild abdominal tenderness to palpation. nondistended positive bowel sounds no hepatosplenomegaly Extremities no edema Neuro alert and orientated to 3 - Labs CBC & Chem 7: 03/26/18 08:01 03/26/18 08:01 Labs: Abnormal Lab Results - Last 24 Hours (Table) 03/26/18 Range/Units 08:01 Chloride 110 H (98-107) mmol/L Total Protein 5.6 L (6.3-8.2) g/dL Albumin 3.1 L (3.5-5.0) g/dL Microbiology - Last 24 Hours (Table) 03/25/18 09:23 Blood Culture - Preliminary Blood No Growth after 24 hours Assessment and Plan Assessment: 1. Nausea related to diverticulitis. CT of abdomen completed showing mild to moderate acute diverticulitis 100 and proximal sigmoid colon of the left upper to mid pelvis. White blood cell 12.5. Patient started on Levaquin and Flagyl for antibiotics. Patient placed on clear liquid diet. Patient requesting Dr. Peterson be consulted. Per GI patient will be advanced to full liquid diet for dinner. Continue IV antibiotics Levaquin and Flagyl and will require an additional 7-10 days of antibiotics on discharge. Patient's schedule colonoscopy for next week has been rescheduled for mid April with Dr. Peterson. WBC 4.5. 2. History of diverticulitis. Patient states last episode was possibly 20 years ago. 3. History of depression. Home meds have been resumed 4. History of Martinez's palsy 5. Hypothyroidism continue Synthroid 6. Increased falls over the past couple months. Patient also states she has been more forgetful over the past couple months. Patient does have a history of Martinez's palsy. Neurology has been consulted. Per neurology patient follows could be from her Klonopin. Klonopin decreased to 1 mg 3 times a day and recommendation for potential weaning off the benzodiazepine per neurology GI prophylaxis Protonix and DVT prophylaxis Lovenox I performed an examination of the patient and discussed their management with the Nurse Practitioner. I have reviewed the Nurse Practitioner's notes and agree with the documented findings and plan of care
--- NOTE | 2018-03-26 18:25 | P.PN ---
Subjective Progress Note Date: 03/26/18 Principal diagnosis: recurrent falls Neurology following a 68-year-old female for recurrent falls. Patient was brought to the ED with complaints of abdominal pain and was worked up for diverticulitis. Patient complains of recurrent falls over the last 6 months. Patient reports now she is currently falling every other day. Some falls are related trips or loss of balance. Patient denies any tremors or urinary incontinence. Denies any lower extremity numbness and tingling. On contact, patient was alert and oriented 3, in bed resting in no acute distress, spouse is at the bedside. Objective - Vital Signs Vital signs: Vital Signs Temp 98.1 F 03/26/18 14:18 Pulse 71 03/26/18 14:18 Resp 17 03/26/18 14:18 BP 116/75 03/26/18 14:18 Pulse Ox 95 03/26/18 14:18 Intake & Output 03/25/18 03/26/18 03/26/18 18:59 06:59 18:59 Intake Total 600 450 Balance 600 450 Weight 76.657 kg 76.657 kg Intake: Oral 600 450 Other: Voiding Method Toilet # Voids 2 3 # Bowel Movements 0 - Exam General appearance: Alert & oriented x3, no apparent distress. Head: Atraumatic, normocephalic, normal inspection Eyes: Well appearance, PERRLA, EOMI. Absent scleral icterus, conjunctival injection, nystagmus, periorbital swelling. Ear, nose and throat: Normal exam, mucous membranes moist Neck: Normal inspection, absent tenderness, lymphadenopathy. Respiratory: No increased work of breathing Cardiovascular: Regular rate, rhythm GI/abdominal: No guarding Extremities: Full range of motion, normal capillary refill, no tenderness, pedal edema joint swelling, calf tenderness. Neurological: cranial nerves II through XII intactleft facial weakness involving upper and lower perioral area no lateralizing weakness of the upper or lower extremities no seizure activity noted on physical exam no pronator drift and no nystagmus. upper and lower extremities are equal and symmetrical with regard to strength Upper and lower extremity's are equal and symmetrical with regard to light touch Psychological: Mood and Affect appropriate for setting - Labs CBC & Chem 7: 03/26/18 08:01 03/26/18 08:01 Labs: Abnormal Lab Results - Last 24 Hours (Table) 03/26/18 Range/Units 08:01 Chloride 110 H (98-107) mmol/L Total Protein 5.6 L (6.3-8.2) g/dL Albumin 3.1 L (3.5-5.0) g/dL Microbiology - Last 24 Hours (Table) 03/25/18 09:23 Blood Culture - Preliminary Blood No Growth after 24 hours Assessment and Plan (1) Recurrent falls Narrative/Plan: Patient has been having frequent falls for 6 months. Although falls are becoming more frequent, her neurological exam is normal. Patient was decreased to Klonopin 1.5 mg 3 times a day but by supervising physician yesterday with long-term plan to decrease or eliminate Klonopin. Benzodiazepines are known for fall risk in the elderly. Currently her dose will be 1 mg 3 times a day with decreasing gradually over the next several months. Physical therapy has been consulted. Patient reports she has returned to baseline since decreasing benzodiazepine yesterday. However, further outpatient benzodiazepine weaning will need to occur. Defer further treatment options to physical therapy and primary team. All previous requested workup has been negative. Current Visit: Yes Status: Acute Code(s): R29.6 - REPEATED FALLS SNOMED Code(s): 108882140 (2) History of migraine Current Visit: Yes Status: Acute Code(s): Z86.69 - PERSONAL HISTORY OF DIS OF THE NERVOUS SYS AND SENSE ORGANS SNOMED Code(s): 911145846 (3) Depression Current Visit: Yes Status: Acute Code(s): F32.9 - MAJOR DEPRESSIVE DISORDER , SINGLE EPISODE, UNSPECIFIED SNOMED Code(s): 49191267 Plan: STATUS: Patient will be cleared for discharge from a neurological standpoint. Patient to contact our office within 10 days for follow up. I have discussed the plan of care with the physician prior to implementation and he agrees with the plan as implemented.
[2018-03-27] MEDS: SODIUM CHLORIDE 0.9% 1,000 ML IV SCH ×2 (06:18→14:29)
[2018-03-27] MEDS: LEVOTHYROXINE 25 MCG TAB PO SCH (06:18)
[2018-03-27] MEDS: metroNIDAZOLE-NS PMX 500 MG in SALINE 1 100ML.BAG IVPB SCH ×3 (07:42→23:04)
[2018-03-27] MEDS: PANTOPRAZOLE 40 MG/10 ML VIAL IV SCH (07:43)
[2018-03-27 08:32] LABS: Basophils % (A) 1 %; Eosinophils # (A) 0.1 k/uL (0-0.7); Eosinophils % (A) 2 %; HCT 35.9 % (34.0-46.0); HGB 11.7 gm/dL (11.4-16.0); Lymphocytes # (A) 1.6 k/uL (1.0-4.8); Lymphocytes % (A) 33 %; MCH 29.5 pg (25.0-35.0); MCHC 32.7 g/dL (31.0-37.0); MCV 90.4 fL (80.0-100.0); Mean Platelet Volume 7.6; Monocytes # (A) 0.5 k/uL (0-1.0); Monocytes % (A) 10 %; Neutrophils # (A) 2.4 k/uL (1.3-7.7); Neutrophils % (A) 51 %; Platelet Count 237 k/uL (150-450); RBC 3.98 m/uL (3.80-5.40); RDW 12.5 % (11.5-15.5); WBC 4.7 k/uL (3.8-10.6)
[2018-03-27 08:47] LABS: Albumin 3.2 g/dL (3.5-5.0); Calcium 8.9 mg/dL (8.4-10.2); Potassium 4.5 mmol/L (3.5-5.1); Total Bilirubin 0.3 mg/dL (0.2-1.3); Total Protein 5.7 g/dL (6.3-8.2)
[2018-03-27] MEDS: VENLAFAXINE HCL ER 150 MG CAP PO SCH (09:16)
[2018-03-27] MEDS: DIVALPROEX 500 MG TABLET.DR PO SCH (09:16)
[2018-03-27] MEDS: clonazePAM 1 MG TAB PO SCH ×3 (09:16→21:23)
[2018-03-27] MEDS: ENOXAPARIN 40 MG/0.4 ML SYRINGE SQ SCH (09:16)
[2018-03-27] MEDS: SENNOSIDES-DOCUSATE SODIUM 1 EACH TAB PO SCH (09:16)
[2018-03-27] MEDS: lamoTRIgine 25 MG TAB PO SCH ×2 (09:16→18:02)
[2018-03-27] MEDS: LEVOFLOXACIN 750MG-D5W PMX 750 MG in DEXTROSE/WATER 1 150ML.BAG IVPB SCH (09:16)
[2018-03-27] MEDS: buPROPion XL 150 MG TAB.ER.24H PO SCH (09:16)
[2018-03-27] MEDS: ACETAMINOPHEN TAB 325 MG TAB PO PRN (12:59)
--- NOTE | 2018-03-27 13:27 | P.PN ---
Subjective Progress Note Date: 03/27/18 This 60-year-old female patient of Dr. parkinson. Patient presented to emergency department with some planes of left lower quadrant abdominal pain. Patient states symptoms have been present for 1 week. Patient states she tried laxatives and a Fleet enema aching she was constipated but provided no relief of the symptoms at that time. Patient does have a known past medical history of diverticulitis approximately 20 years ago. Additional medical history includes Depression, Martinez's Palsy, left eye surgery and left fallopian tube and ovary removal. CT of abdomen and pelvis completed showing mild to moderate acute diverticulitis centered in the proximal sigmoid colon of the left upper to mid pelvis. Patient does state she has a scheduled colonoscopy next week with Dr. Quezada. Patient is requesting a GI services be consulted. WBC count 12.5. Patient has been started on Flagyl and Levaquin. Blood culture has been ordered. Patient also getting Protonix IV daily. Patient denies vomiting or diarrhea. Does state she has a bit of nausea. Patient does states she's been able to tolerate a clear liquid diet. Patient denies chest pain or shortness breath. Patient denies urinary burning or frequency. On 03/26/2018 patient is currently resting comfortably bed. Patient states that abdominal pain has improved. Patient is currently tolerating clear diet. Patient remains on Flagyl and Levaquin for antibiotics. Patient denies any vomiting or diarrhea this time. Does report mild abdominal tenderness with palpation. Denies chest pain or shortness of breath. Denies any urinary burning or frequency. 03/27/2018 patient is still having some mild left lower quadrant pain. Pain is improving since admission. She remains on Levaquin and Flagyl. GI service has advanced her diet to regular. Patient still not had a bowel movement for the past 2 days. Denies any nausea or vomiting. Denies any chest pain or shortness of breath. Denies any difficulty urinating. She has been up and ambulating. She'll be given a dose of lactulose for her constipation Objective - Vital Signs Vital signs: Vital Signs Temp 98.5 F 03/27/18 05:45 Pulse 78 03/27/18 05:45 Resp 20 03/27/18 05:45 BP 123/69 03/27/18 05:45 Pulse Ox 91 L 03/27/18 05:45 Intake & Output 03/26/18 03/27/18 03/27/18 18:59 06:59 18:59 Intake Total 1050 Balance 1050 Weight 76.657 kg Intake: Oral 1050 Other: Voiding Method Toilet # Voids 1 3 # Bowel Movements 0 - Exam Head normocephalic Neck supple Lungs clear to auscultation bilaterally no wheezing or crackles Heart regular rate and rhythm S1-S2, no rub or gallop Abdomen is soft nondistended. Left lower quadrant tenderness Extremities no edema Neuro alert and orientated to 3 - Labs CBC & Chem 7: 03/27/18 07:04 03/27/18 07:04 Labs: Abnormal Lab Results - Last 24 Hours (Table) 03/27/18 Range/Units 07:04 AST 37 H (14-36) U/L Total Protein 5.7 L (6.3-8.2) g/dL Albumin 3.2 L (3.5-5.0) g/dL Microbiology - Last 24 Hours (Table) 03/25/18 09:23 Blood Culture - Preliminary Blood No Growth after 48 hours Assessment and Plan Assessment: 1. Acute diverticulitis: CT of abdomen completed showing mild to moderate acute diverticulitis 100 and proximal sigmoid colon of the left upper to mid pelvis. White blood cell 12.5. Patient started on Levaquin and Flagyl for antibiotics. Patient placed on clear liquid diet. Patient requesting Dr. Peterson be consulted. Per GI patient will be advanced to full liquid diet for dinner. Continue IV antibiotics Levaquin and Flagyl and will require an additional 7-10 days of antibiotics on discharge. Patient's schedule colonoscopy for next week has been rescheduled for mid April with Dr. Peterson. WBC 4.5. 2. History of diverticulitis. Patient states last episode was possibly 20 years ago. 3. History of depression. Home meds have been resumed 4. History of Martinez's palsy 5. Hypothyroidism continue Synthroid 6. Increased falls over the past couple months. Patient also states she has been more forgetful over the past couple months. Patient does have a history of Martinez's palsy. Neurology has been consulted. Per neurology patient follows could be from her Klonopin. Klonopin decreased to 1 mg 3 times a day and recommendation for potential weaning off the benzodiazepine per neurology GI prophylaxis Protonix and DVT prophylaxis Lovenox Patient's diet will be advanced to regular. She'll be given lactulose for constipation Anticipate discharge home tomorrow I performed an examination of the patient and discussed their management with the physician Corporate Planning Manager. I have reviewed the Physician Corporate Planning Manager's notes and agree with the documented findings and plan of care
[2018-03-27] MEDS ORDERED: LACTULOSE 20 GM/30 ML CUP PO ONE (13:45)
--- NOTE | 2018-03-27 16:04 | P.PN ---
Subjective Progress Note Date: 03/27/18 Principal diagnosis: Uncomplicated diverticulitis The patient reports that she is 50% better today. She reports that the pain has decreased by about half. She is able to tolerate liquids. She is eager to be sent home. Objective - Vital Signs Vital signs: Vital Signs Temp 98.5 F 03/27/18 14:51 Pulse 86 03/27/18 14:51 Resp 17 03/27/18 14:51 BP 134/54 03/27/18 14:51 Pulse Ox 99 03/27/18 14:51 Intake & Output 03/26/18 03/27/18 03/27/18 18:59 06:59 18:59 Intake Total 1050 240 Balance 1050 240 Weight 76.657 kg Intake: Oral 1050 240 Other: Voiding Method Toilet # Voids 1 3 4 # Bowel Movements 0 0 - Exam On physical examination, patient appears comfortable in no apparent distress. HEENT: Unremarkable. Conjunctivae pink. Sclerae anicteric.No conjunctival injection. Oral cavity no lesions. NECK: Trachea midline, no gross abnormalities. CHEST: Clear to auscultation. HEART: Regular rate and rhythm. ABDOMEN: Soft. Bowel sounds are positive. No organomegaly. No rigidity but tenderness to deep palpation of the left lower quadrant is noted. EXTREMITIES: No pedal edema. SKIN: No rashes. NEUROLOGIC: Alert and oriented x3. No focal deficits. - Labs CBC & Chem 7: 03/27/18 07:04 03/27/18 07:04 Labs: Abnormal Lab Results - Last 24 Hours (Table) 03/27/18 Range/Units 07:04 AST 37 H (14-36) U/L Total Protein 5.7 L (6.3-8.2) g/dL Albumin 3.2 L (3.5-5.0) g/dL Microbiology - Last 24 Hours (Table) 03/25/18 09:23 Blood Culture - Preliminary Blood No Growth after 48 hours Assessment and Plan (1) Acute diverticulitis Narrative/Plan: Acute uncomplicated sigmoid diverticulitis. This is a patient's second episode in 20 years. Prior episode did not require hospitalization. The patient has done well with IV hydration and antibiotic therapy and is currently tolerating diet. Current Visit: Yes Status: Acute Code(s): K57.92 - DVTRCLI OF INTEST, PART UNSP, W/O PERF OR ABSCESS W/O BLEED SNOMED Code(s): 231240173 Plan: Supportive care Increase diet to low residual GI soft, to be continued for 2 weeks. After which time the patient should switch to a high-fiber diet. Okay for discharge on ciprofloxacin and Flagyl for an additional 7 days Patient has a colonoscopy scheduled with Dr. Preston Peterson as an outpatient Thank you for allowing us to participate in the care of this patient, will continue to follow
[2018-03-27] MEDS ORDERED: MORPHINE ORAL SOLN 10 MG/5 ML CUP PO PRN (19:28)
[2018-03-28] MEDS: SODIUM CHLORIDE 0.9% 1,000 ML IV SCH (03:43)
[2018-03-28 06:44] VITALS: BP 127/76; PULSE 73; RESP 18; TEMP 97.9
[2018-03-28] MEDS: LEVOTHYROXINE 25 MCG TAB PO SCH (06:56)
[2018-03-28] MEDS: clonazePAM 1 MG TAB PO SCH (09:01)
[2018-03-28] MEDS: DIVALPROEX 500 MG TABLET.DR PO SCH (09:01)
[2018-03-28] MEDS: SENNOSIDES-DOCUSATE SODIUM 1 EACH TAB PO SCH (09:01)
[2018-03-28] MEDS: lamoTRIgine 25 MG TAB PO SCH (09:01)
[2018-03-28] MEDS: buPROPion XL 150 MG TAB.ER.24H PO SCH (09:01)
[2018-03-28] MEDS: ENOXAPARIN 40 MG/0.4 ML SYRINGE SQ SCH (09:02)
[2018-03-28] MEDS: VENLAFAXINE HCL ER 150 MG CAP PO SCH (09:02)
[2018-03-28 09:07] LABS: Basophils # (A) 0.1 k/uL (0-0.2); Basophils % (A) 1 %; Eosinophils # (A) 0.1 k/uL (0-0.7); Eosinophils % (A) 2 %; HCT 39.9 % (34.0-46.0); HGB 12.4 gm/dL (11.4-16.0); Lymphocytes # (A) 1.2 k/uL (1.0-4.8); Lymphocytes % (A) 25 %; MCH 28.3 pg (25.0-35.0); MCHC 31.1 g/dL (31.0-37.0); Monocytes # (A) 0.4 k/uL (0-1.0); Monocytes % (A) 8 %; Neutrophils % (A) 62 %; Platelet Count 259 k/uL (150-450); RBC 4.39 m/uL (3.80-5.40); RDW 12.5 % (11.5-15.5); WBC 4.8 k/uL (3.8-10.6)
[2018-03-28 09:36] LABS: Albumin 3.5 g/dL (3.5-5.0); Calcium 9.1 mg/dL (8.4-10.2); Potassium 4.4 mmol/L (3.5-5.1); Total Bilirubin 0.3 mg/dL (0.2-1.3)
--- NOTE | 2018-03-28 09:37 | P.PN ---
<Darcy Dixon - Last Filed: 03/28/18 09:37> Subjective Progress Note Date: 03/28/18 Principal diagnosis: Acute colonic diverticulitis 60-year-old female admitted with acute abdominal pain colonic diverticulitis. Passing bowel movements 4-5 last night. Abdominal pain improved. Afebrile. Objective - Vital Signs Vital signs: Vital Signs Temp 97.9 F 03/28/18 06:43 Pulse 73 03/28/18 06:43 Resp 18 03/28/18 06:43 BP 127/76 03/28/18 06:43 Pulse Ox 94 L 03/28/18 06:43 Intake & Output 03/27/18 03/28/18 03/28/18 18:59 06:59 18:59 Intake Total 240 100 Balance 240 100 Intake: Oral 240 100 Other: Voiding Method Toilet # Voids 4 1 # Bowel Movements 0 1 - Exam General appearance: The patient is alert, oriented, in no acute distress. HET: Head is normocephalic and atraumatic. Pupils are equal and reactive. Oropharynx is clear without lesions. Neck: Supple without lymphadenopathy. Trachea midline. Heart: S1 S2. Regular rate and rhythm. Lungs: No crackles or wheezes are heard. Abdomen: Soft, mild left lower quadrant tenderness, nondistended with bowel sounds. No peritoneal signs. No palpable organomegaly or masses. Extremities: Normal skin color and turgor. No cyanosis, rash, ulceration, clubbing, or edema. Radial and pedal pulses are 2/4 bilaterally. Neurological: No focal deficits. Strength and sensation are grossly intact. - Labs CBC & Chem 7: 03/27/18 07:04 03/27/18 07:04 Labs: Abnormal Lab Results - Last 24 Hours (Table) 03/27/18 Range/Units 07:04 AST 37 H (14-36) U/L Total Protein 5.7 L (6.3-8.2) g/dL Albumin 3.2 L (3.5-5.0) g/dL Microbiology - Last 24 Hours (Table) 03/25/18 09:23 Blood Culture - Preliminary Blood No Growth after 48 hours Assessment and Plan (1) Acute diverticulitis Narrative/Plan: 68-year-old female with a history of colonic diverticulosis mild leukocytosis presents with 2 week history of left lower quadrant abdominal pain CT imaging supportive of proximal sigmoid diverticulosis without abscess. Current Visit: Yes Status: Acute Code(s): K57.92 - DVTRCLI OF INTEST, PART UNSP, W/O PERF OR ABSCESS W/O BLEED SNOMED Code(s): 351379131 Plan: 1. GI soft diet. Daily stool softeners. Avoid constipation. 2. Cipro Flagyl and discharge 7 days. 3. Outpatient colonoscopy scheduled April [address] Peterson. 4. DC per medicine. Assessment and plan of care discussed with Dr. Kemp <Ricardo Kemp - Last Filed: 03/28/18 10:32> Objective - Vital Signs Vital signs: Vital Signs Temp 97.9 F 03/28/18 06:43 Pulse 73 03/28/18 06:43 Resp 18 03/28/18 06:43 BP 127/76 03/28/18 06:43 Pulse Ox 94 L 03/28/18 06:43 Intake & Output 03/27/18 03/28/18 03/28/18 18:59 06:59 18:59 Intake Total 240 100 Balance 240 100 Intake: Oral 240 100 Other: Voiding Method Toilet # Voids 4 1 # Bowel Movements 0 1 - Labs CBC & Chem 7: 03/28/18 08:31 03/28/18 08:31 Labs: Abnormal Lab Results - Last 24 Hours (Table) 03/28/18 Range/Units 08:31 Carbon Dioxide 32 H (22-30) mmol/L Glucose 124 H (74-99) mg/dL AST 40 H (14-36) U/L Total Protein 6.0 L (6.3-8.2) g/dL Microbiology - Last 24 Hours (Table) 03/25/18 09:23 Blood Culture - Preliminary Blood No Growth after 48 hours Assessment and Plan (1) Acute diverticulitis Current Visit: Yes Status: Acute Code(s): K57.92 - DVTRCLI OF INTEST, PART UNSP, W/O PERF OR ABSCESS W/O BLEED SNOMED Code(s): 103745044 Plan: The patient has been seen and evaluated, and the plan of care discussed. I agree with the above recommendations and assessment and plan.
[2018-03-28] MEDS: metroNIDAZOLE-NS PMX 500 MG in SALINE 1 100ML.BAG IVPB SCH (10:19)
[2018-03-28] MEDS: LEVOFLOXACIN 750MG-D5W PMX 750 MG in DEXTROSE/WATER 1 150ML.BAG IVPB SCH (10:20)
[2018-03-28] MEDS: PANTOPRAZOLE 40 MG/10 ML VIAL IV SCH (10:20)
--- NOTE | 2018-03-28 13:10 | P.DS ---
Providers Date of admission: 03/25/18 08:55 Expected date of discharge: 03/28/18 Attending physician: Gonsalo Evans Consults: 03/25/18 11:39 Consult Physician Routine Consulting Provider: Preston Peterson Consult Reason/Comments: diverticulitis. patient has scheduled colonscopy next week Do you want consulting provider notified?: Yes 03/25/18 17:05 Consult Physician Routine Consulting Provider: Maya Jaime Consult Reason/Comments: Increase falls over the past month and increased forgetfulness Do you want consulting provider notified?: Yes Primary care physician: Diamante [facility] Course: Discharge diagnosis 1. Acute diverticulitis: CT of abdomen completed showing mild to moderate acute diverticulitis centered in the proximal sigmoid colon of the left upper to mid pelvis. White blood cell 12.5. Patient started on Levaquin and Flagyl for antibiotics. Patient placed on clear liquid diet. Patient requesting Dr. Peterson be consulted. Per GI patient will be advanced to full liquid diet for dinner. Continue IV antibiotics Levaquin and Flagyl and will require an additional 7-10 days of antibiotics on discharge. Patient's schedule colonoscopy for next week has been rescheduled for mid April with Dr. Petersno. WBC 4.5. 2. History of diverticulitis. Patient states last episode was possibly 20 years ago. 3. History of depression. Home meds have been resumed 4. History of Martinez's palsy 5. Hypothyroidism continue Synthroid 6. Increased falls over the past couple months. Patient also states she has been more forgetful over the past couple months. Patient does have a history of Martinez's palsy. Neurology has been consulted. Per neurology patient follows could be from her Klonopin. Klonopin decreased to 1 mg 3 times a day and recommendation for potential weaning off the benzodiazepine per neurology Hospital course This 60-year-old female patient of Dr. parkinson. Patient presented to emergency department with some planes of left lower quadrant abdominal pain. Patient states symptoms have been present for 1 week. Patient states she tried laxatives and a Fleet enema aching she was constipated but provided no relief of the symptoms at that time. Patient does have a known past medical history of diverticulitis approximately 20 years ago. Additional medical history includes Depression, Martinez's Palsy, left eye surgery and left fallopian tube and ovary removal. CT of abdomen and pelvis completed showing mild to moderate acute diverticulitis centered in the proximal sigmoid colon of the left upper to mid pelvis. Patient does state she has a scheduled colonoscopy next week with Dr. Quezada. Patient is requesting a GI services be consulted. WBC count 12.5. Patient has been started on Flagyl and Levaquin. Blood culture has been ordered. Patient also getting Protonix IV daily. Patient denies vomiting or diarrhea. Does state she has a bit of nausea. Patient does states she's been able to tolerate a clear liquid diet. Patient denies chest pain or shortness breath. Patient denies urinary burning or frequency. On 03/26/2018 patient is currently resting comfortably bed. Patient states that abdominal pain has improved. Patient is currently tolerating clear diet. Patient remains on Flagyl and Levaquin for antibiotics. Patient denies any vomiting or diarrhea this time. Does report mild abdominal tenderness with palpation. Denies chest pain or shortness of breath. Denies any urinary burning or frequency. 03/27/2018 patient is still having some mild left lower quadrant pain. Pain is improving since admission. She remains on Levaquin and Flagyl. GI service has advanced her diet to regular. Patient still not had a bowel movement for the past 2 days. Denies any nausea or vomiting. Denies any chest pain or shortness of breath. Denies any difficulty urinating. She has been up and ambulating. She'll be given a dose of lactulose for her constipation Patient will be discharged on 03/28/2018. She reports improvement in her abdominal pain and is tolerating diet. She is able to have a bowel movement. GI services recommending a low residual soft diet for 2 weeks and then advanced a high fiber diet. They're also recommending colonoscopy to be completed outpatient. Patient needs to complete 7 more days of Levaquin and Flagyl for treatment for her acute diverticulitis. She's been educated to avoid any seeds or nuts. Patient's Effexor will be placed on hold while she is on the Levaquin for the next 7 days. After completing the Levaquin Effexor can be restarted. Effexor and Levaquin have a medication interaction that can cause a severe prolonged QT interval. I performed an examination of the patient and discussed their management with the physician [employer]ing [employer]. I have reviewed the Physician Primer Charging Tool Setter's notes and agree with the documented findings and plan of care Patient Condition at Discharge: Stable Plan - Discharge Summary Discharge Rx Participant: No New Discharge Prescriptions: New clonazePAM [KlonoPIN] 1 mg PO TID #9 tab Levofloxacin [Levaquin] 500 mg PO DAILY #7 tab metroNIDAZOLE [Flagyl] 500 mg PO Q8HR #21 tab Continue Multivitamins, Thera [Multivitamin (formulary)] 1 tab PO DAILY Levothyroxine Sodium [Synthroid] 25 mcg PO DAILY Lansoprazole [Prevacid] 30 mg PO BID Divalproex [Depakote] 500 mg PO DAILY Ranitidine HCl [Zantac] 300 mg PO DAILY Biotin 10,000 mcg PO DAILY buPROPion XL [Wellbutrin XL] 450 mg PO DAILY Cholecalciferol [Vitamin D3] 1,000 unit PO DAILY Docusate [Colace] 100 mg PO DAILY Fish Oil/Dha/Epa [Fish Oil 1,200 mg Fish Oil] 1 cap PO DAILY lamoTRIgine [LaMICtal] 50 mg PO BID Discontinued clonazePAM [KlonoPIN] 1.5 mg PO BID Venlafaxine HCl ER [Effexor XR] 300 mg PO DAILY Discharge Medication List Divalproex [Depakote] 500 mg PO DAILY 12/12/15 [History] Lansoprazole [Prevacid] 30 mg PO BID 12/12/15 [History] Levothyroxine Sodium [Synthroid] 25 mcg PO DAILY 12/12/15 [History] Multivitamins, Thera [Multivitamin (formulary)] 1 tab PO DAILY 12/12/15 [History ] Ranitidine HCl [Zantac] 300 mg PO DAILY 12/15/15 [History] Biotin 10,000 mcg PO DAILY 03/25/18 [History] Cholecalciferol [Vitamin D3] 1,000 unit PO DAILY 03/25/18 [History] Docusate [Colace] 100 mg PO DAILY 03/25/18 [History] Fish Oil/Dha/Epa [Fish Oil 1,200 mg Fish Oil] 1 cap PO DAILY 03/25/18 [History] buPROPion XL [Wellbutrin XL] 450 mg PO DAILY 03/25/18 [History] lamoTRIgine [LaMICtal] 50 mg PO BID 03/25/18 [History] Levofloxacin [Levaquin] 500 mg PO DAILY #7 tab 03/28/18 [Rx] clonazePAM [KlonoPIN] 1 mg PO TID #9 tab 03/28/18 [Rx] metroNIDAZOLE [Flagyl] 500 mg PO Q8HR #21 tab 03/28/18 [Rx] Follow up Appointment(s)/Referral(s): Diamante Bynum MD [Primary Care Provider] - 1 Week Maya Jaime MD [STAFF PHYSICIAN] - 3 Weeks [facility] Nurse, [NON-STAFF] - 1-2 Days Activity/Diet/Wound Care/Special Instructions: Colonoscopy rescheduled SaturdayApril 22 at [facility] with Dr[facility] Peterson; preoperative scheduling to notify patient with additional instructions and arrival time. Follow with Dr. Camacho at your appt 04/08 regarding neurology recommendations to wean Klonopin Diet: low residual, soft diet for 2 weeks Avoid seeds or nuts Activity: as tolerated Hold patient's Effexor 300 mg daily for the 7 days while patient is on the Levaquin due to medication interaction Discharge Disposition: HOME WITH HOME HEALTH SERVICES
== END 2018-03-28 15:40 | disposition home health service (06) | DRG 392 ==
LOC: EC 06:45 → 4MS4W 08:55
PROVIDERS: ADMIT Internal Medicine; ATTEND Internal Medicine
DX: K57.32 Diverticulitis of large intestine without perforation or abscess without bleeding (principal); D72.829 Elevated white blood cell count, unspecified; E03.9 Hypothyroidism, unspecified; F32.9 Major depressive disorder, single episode, unspecified; K59.00 Constipation, unspecified; R29.6 Repeated falls; F41.9 Anxiety disorder, unspecified; G43.909 Migraine, unspecified, not intractable, without status migrainosus; R73.9 Hyperglycemia, unspecified; T42.4X5A Adverse effect of benzodiazepines, initial encounter; Z79.899 Other long term (current) drug therapy; Z79.890 Hormone replacement therapy; Z88.6 Allergy status to analgesic agent; Z90.79 Acquired absence of other genital organ(s); Z90.721 Acquired absence of ovaries, unilateral; Z82.0 Family history of epilepsy and other diseases of the nervous system; Y92.009 Unspecified place in unspecified non-institutional (private) residence as the place of occurrence of the external cause
CPT/HCPCS: 36415; 74177; 80053; 81001; 82150; 83605; 83690; 85025; 85610; 85730; 87040; 96361; 96365; 96366; 96367; 96375; 99285

== ENCOUNTER → 2018-04-21 | Outpatient (CLI) | payer MEDICARE ==
--- NOTE | 2018-04-21 14:24 | MM ---
Reason for exam: follow-up at short interval from prior study. Last mammogram was performed 6 months ago. History: Patient is postmenopausal and history of other cancer. Family history of breast cancer in paternal cousin. Physical Findings: Nurse did not find any significant physical abnormalities on exam. MG 3D Diag Mammo W/Cad RT LM view(s) were taken of the right breast. Prior study comparison: October 07, 2017, bilateral MG 3d screening mammo w/cad. July 25, 2016, bilateral MG 3d screening mammo w/cad. There are scattered fibroglandular densities. 7mm circumscribed isodense mass 3 o'clock right breast is stable for 6 months, larger from 2015 and 2014, and new from 2013. These results were verbally communicated with the patient and result sheet given to the patient on 04/21/18. ASSESSMENT: Incomplete: need additional imaging evaluation, BI-RAD 0 RECOMMENDATION: Ultrasound of the right breast.
--- NOTE | 2018-04-21 14:26 | USB ---
Reason for exam: additional evaluation requested from abnormal screening. History: Patient is postmenopausal and history of other cancer. Family history of breast cancer in paternal cousin. US Breast Limited RT Right limited breast ultrasound including focal area of concern, retroareolar and axilla demonstrates a 7 x 3 x 6mm thick walled, likely cyst with some debris at 2 o'clock. Given gradual enlargement, additional short interval follow up recommended. Scanned 12-6 o'clock. These results were verbally communicated with the patient and result sheet given to the patient on 04/21/18. ASSESSMENT: Probably benign, BI-RAD 3 RECOMMENDATION: Follow-up diagnostic mammogram of both breasts in 6 months. Ultrasound of the right breast in 6 months.
== END | disposition home or self-care (01) ==
LOC: RADMAMWWP 12:34
PROVIDERS: ATTEND Family Medicine
DX: R92.2 Inconclusive mammogram (principal)
CPT/HCPCS: 77065; 76642; G0279; 77061

== ENCOUNTER 2018-05-05 08:38 | Day surgery (SDC) | payer MEDICARE ==
[2018-04-17 13:44] VITALS: BMI 23.3
[~2018-05-05 08:38] MED LIST: LACTATED RINGERS 1,000 ML IV SCH; LIDOCAINE 1% 20 ML VIAL (10MG/ML) FOR IV START INTRADERMA PRN; MIDAZOLAM 2 MG/2 ML VIAL IV PRN
[2018-05-05 09:17] VITALS: TEMP 97
[2018-05-05] MEDS ORDERED: PROPOFOL 10 MG/ML 20 ML VIAL IV ONE (10:13)
[2018-05-05] MEDS ORDERED: LIDOCAINE 1% INJ 10MG/ML (20 ML MDV) ONE (10:13)
--- NOTE | 2018-05-05 10:55 | P.PCN ---
Date of Procedure: 05/05/18 Procedure(s) Performed: Procedure: Total colonoscopy. Preoperative diagnosis: Change in bowel habits. Postoperative diagnosis: Diverticulosis with no evidence of acute diverticulitis , strictures, polyps or cancer. Preparation: HalfLytely prep. Sedation: Was provided by anesthesia. Brief clinical history: The patient is a 68-year-old female who was treated last month for acute diverticulitis. The patient has since recuperated and is scheduled for this examination is to rule out neoplasia or complicated diverticular disease. The patient had a prior colonoscopy in April 2013 which did not show significant abnormalities. Procedure: With the patient on her left lateral decubitus position and after informed consent and adequate sedation, the perianal area was inspected and it did not show any fissures or fistulas. There were no masses felt on digital rectal examination. The Olympus CFQ 160L video colonoscope was then inserted in the rectum in the usual fashion and advanced to the cecum. There were multiple diverticular orifices seen scattered in the colon, mostly on the left side, with no evidence of acute diverticulitis or strictures. No polyps or tumors were seen. The mucosa appeared healthy. I retroflexed the endoscope in the rectum before the endoscope was withdrawn. The patient tolerated the procedure well. Plan: The patient was reassured. Discussed dietary measures. She will follow- up with you as planned and I recommended repeat exam in 10 years.
[2018-05-05 11:04] VITALS: BP 147/87; PULSE 72; RESP 16
== END 2018-05-05 12:02 | disposition home or self-care (01) ==
LOC: ORWHC2ENDO 08:38
DX: K57.30 Diverticulosis of large intestine without perforation or abscess without bleeding (principal); Z88.3 Allergy status to other anti-infective agents; Z88.6 Allergy status to analgesic agent; G51.0 Bell's palsy; Z79.890 Hormone replacement therapy; E07.9 Disorder of thyroid, unspecified; K21.9 Gastro-esophageal reflux disease without esophagitis; Z79.899 Other long term (current) drug therapy; R56.9 Unspecified convulsions
CPT/HCPCS: 45378; J2001; J2704

== ENCOUNTER → 2018-08-07 | Outpatient (CLI) | payer MEDICARE ==
--- NOTE | 2018-08-07 16:01 | US ---
EXAMINATION TYPE: US axilla RT DATE OF EXAM: 08/07/2018 COMPARISON: NONE CLINICAL HISTORY: R22.9 Lump and swelling. Palpable area x 1 year TECHNIQUE: Targeted right axillary ultrasound was performed with grayscale imaging. FINDINGS: Soft tissue scan of right axilla produces normal appearing tissue with no focal abnormality noted. IMPRESSION: No sonographic correlate to the patient's stated palpable abnormality.
== END | disposition home or self-care (01) ==
LOC: RADUSWWP 15:32
PROVIDERS: ATTEND Family Medicine
DX: R22.31 Localized swelling, mass and lump, right upper limb (principal)

== ENCOUNTER → 2018-08-07 | Outpatient (CLI) | payer MEDICARE ==
--- NOTE | 2018-08-07 09:34 | CT ---
EXAMINATION TYPE: CT chest wo con DATE OF EXAM: 08/07/2018 COMPARISON: None HISTORY: COPD CT DLP: [address] of the chest was performed with lung and mediastinal window settings submitted. The la ck of contrast limits evaluation of the vascular, mediastinal and parenchymal structures including th e upper abdomen. LUNGS: The lungs are clear and free of infiltrate. No atelectasis. No pulmonary nodule or mass is de tected. No pleural effusion. No CT evidence of interstitial lung disease. MEDIASTINUM/YRN: Thoracic aorta is of normal caliber with limited evaluation given lack of contrast . The heart is not enlarged. No evidence for mediastinal mass. No lymph nodes greater than 1cm. UPPER ABDOMEN: No significant abnormality is seen. OTHER: No significant other abnormality. IMPRESSION: 1. No significant abnormality to account for the patient's symptoms.
== END | disposition home or self-care (01) ==
LOC: RADCTMAIN 08:13
PROVIDERS: ATTEND Family Medicine
DX: R06.00 Dyspnea, unspecified (principal); R06.02 Shortness of breath; J44.9 Chronic obstructive pulmonary disease, unspecified
CPT/HCPCS: 71250; 82565; 84520

== ENCOUNTER 2018-08-11 11:39 | Observation (INO) | payer MEDICARE ==
--- NOTE | 2018-08-11 12:47 | XR ---
EXAMINATION TYPE: XR chest 2V DATE OF EXAM: 08/11/2018 COMPARISON: 07/25/2016 HISTORY: Shortness of breath TECHNIQUE: Frontal and lateral views of the chest are obtained. FINDINGS: There is no focal air space opacity, pleural effusion, or pneumothorax seen. The cardiac silhouette size is within normal limits. The osseous structures are intact. Minimal multilevel dege nerative changes of the thoracic spine and slight dextroscoliotic curvature of the lower thoracic spi ne and upper lumbar spine are noted. Flattening of the diaphragms on the lateral image and pulmonary hyperinflation represents underlying COPD. IMPRESSION: No acute cardiopulmonary process. Radiographic sequela of COPD.
[2018-08-11 12:49] LABS: Basophils # (A) 0.1 k/uL (0-0.2); Basophils % (A) 1 %; Eosinophils # (A) 0.2 k/uL (0-0.7); Eosinophils % (A) 2 %; HCT 41.4 % (34.0-46.0); HGB 14.1 gm/dL (11.4-16.0); Lymphocytes # (A) 2.2 k/uL (1.0-4.8); Lymphocytes % (A) 33 %; MCH 30.6 pg (25.0-35.0); MCV 89.9 fL (80.0-100.0); Mean Platelet Volume 7.1; Monocytes # (A) 0.4 k/uL (0-1.0); Monocytes % (A) 5 %; Neutrophils # (A) 3.6 k/uL (1.3-7.7); Neutrophils % (A) 55 %; Platelet Count 313 k/uL (150-450); RBC 4.61 m/uL (3.80-5.40); WBC 6.6 k/uL (3.8-10.6)
[2018-08-11 13:04] LABS: Albumin 4.3 g/dL (3.5-5.0); Calcium 9.9 mg/dL (8.4-10.2); Potassium 4.9 mmol/L (3.5-5.1); Total Bilirubin 0.5 mg/dL (0.2-1.3); Total Protein 7.1 g/dL (6.3-8.2)
[2018-08-11 13:08] LABS: D-Dimer 0.4 mg/L FEU (<0.60); INR 0.9 (<1.2); Partial Thromboplastin Time 22.7 sec (22.0-30.0); Prothrombin Time 9.8 sec (9.0-12.0)
[2018-08-11 13:15] LABS: Creatine Kinase 42 U/L (30-135)
[2018-08-11 13:28] LABS: Creatine Kinase MB 1.1 ng/mL (0.0-2.4); Troponin I <0.012 ng/mL (0.000-0.034)
[2018-08-11] MEDS ORDERED: NITROGLYCERIN OINT 1 INCH/GM PACKET TOPICAL STA (13:32)
[2018-08-11] MEDS ORDERED: ASPIRIN 81 MG PO STA (13:32)
[2018-08-11] MEDS ORDERED: LORazepam 2 MG/ML INJ IV STA (13:37)
--- NOTE | 2018-08-11 13:45 | ED ---
General Adult HPI - General Chief complaint: Shortness of Breath Stated complaint: SOB, Tingling in Hand&Feet Time Seen by Provider: 08/11/18 13:16 Source: patient, family, RN notes reviewed Mode of arrival: wheelchair Limitations: no limitations - History of Present Illness Initial comments: Patient is a pleasant 68-year-old female presenting to the emergency department with complaints of tingling in bilateral hands and feet. Onset of symptoms was 2 weeks ago. Symptoms have been steady since that time. Patient also has associated discomfort extending from her right mid forearm up to the upper arms up to her upper back. Patient is also having shortness of breath. Patient also has an ache in her chest. Discomfort in her chest is described as mild to moderate. Patient did see her doctor 2 days ago and had computed tomography scan done that was reported to her as normal. Patient also saw another doctor who had concerns for possible anxiety. Patient states she has been taking her medications. - Related Data Home Medications Medication Instructions Recorded Confirmed Lansoprazole [Prevacid] 30 mg PO DAILY 12/12/15 08/11/18 Levothyroxine Sodium [Synthroid] 25 mcg PO DAILY 12/12/15 08/11/18 Multivitamins, Thera [Multivitamin 1 tab PO DAILY 12/12/15 08/11/18 (formulary)] buPROPion XL [Wellbutrin XL] 150 mg PO DAILY 03/25/18 08/11/18 Budesonide-Formot 160-4.5 Mcg 2 puff INHALATION RT-BID 04/17/18 08/11/18 [Symbicort 160-4.5 Mcg Inhaler] Venlafaxine HCl ER [Effexor Xr] 300 mg PO DAILY 04/17/18 08/11/18 lamoTRIgine [LaMICtal] 50 mg PO BID 04/17/18 08/11/18 Docusate [Colace] 100 mg PO DAILY 04/30/18 08/11/18 clonazePAM [KlonoPIN] 0.5 mg PO BID@0800,1200 04/30/18 08/11/18 Cholecalciferol [Vitamin D3] 5,000 unit PO DAILY 08/11/18 08/11/18 Vit C/Ascorb Sod/Multivit-Min 1,000 mg PO DAILY 08/11/18 08/11/18 [Emergen-C 500 mg Chewable Tab] clonazePAM [KlonoPIN] 0.75 mg PO HS 08/11/18 08/11/18 Allergies Allergy/AdvReac Type Severity Reaction Status Date / Time levofloxacin [From Levaquin] AdvReac Hallucinati Verified 08/11/18 13:37 ons metronidazole [From Flagyl] AdvReac Hallucinati Verified 08/11/18 13:37 ons naproxen [From Naprosyn] AdvReac Hallucinati Verified 08/11/18 13:37 ons Review of Systems ROS Statement: Those systems with pertinent positive or pertinent negative responses have been documented in the HPI. ROS Other: All systems not noted in ROS Statement are negative. Constitutional: Denies: fever Eyes: Denies: eye pain ENT: Denies: ear pain Respiratory: Reports: dyspnea. Denies: cough Cardiovascular: Reports: chest pain Endocrine: Denies: fatigue Gastrointestinal: Denies: abdominal pain Genitourinary: Denies: dysuria Musculoskeletal: Denies: back pain Skin: Denies: rash Neurological: Reports: paresthesias Past Medical History Past Medical History: Cancer, COPD, GERD/Reflux Additional Past Medical History / Comment(s): hx [place] Palsy, diverticulitis, being worked up for parkinson's, tremors, memory loss, falls, LEFT EYE BASAL CELL History of Any Multi-Drug Resistant Organisms: None Reported Additional Past Surgical History / Comment(s): left lower eyelid surgery (basal cell ca removed), left fallopian tube and ovary removed. BILAT WRIST SX, COLONOSCOPY, BILAT CATARACTS Past Anesthesia/Blood Transfusion Reactions: No Reported Reaction Past Psychological History: Depression Smoking Status: Former smoker - Past Family History Father Additional Family Medical History / Comment(s): PARKINSONS. uncle also had. General Exam Limitations: no limitations General appearance: alert, anxious Head exam: Present: atraumatic Eye exam: Present: normal appearance, PERRL ENT exam: Present: normal oropharynx Neck exam: Present: normal inspection Respiratory exam: Present: normal lung sounds bilaterally, other (Patient is hyperventilating) Cardiovascular Exam: Present: regular rate, normal rhythm Expanded Peripheral pulses: 2+: Radial (R), Radial (L), Posterior Tibialis (R), Posterior Tibialis (L), Dorsalis Pedis (R), Dorsalis Pedis (L) GI/Abdominal exam: Present: soft. Absent: distended, tenderness, guarding Extremities exam: Present: tenderness (Patient has mild tenderness right upper arm). Absent: pedal edema, calf tenderness Back exam: Present: tenderness (Patient does have some tenderness to the right upper trapezius region) Neurological exam: Present: alert Psychiatric exam: Present: normal affect, normal mood Skin exam: Present: normal color Course Vital Signs 08/11/18 08/11/18 11:47 14:25 Temperature 98.2 F Pulse Rate 83 Respiratory 18 22 Rate Blood Pressure 136/83 O2 Sat by Pulse 100 Oximetry EKG Findings - EKG Comments: EKG Findings:: Normal sinus rhythm 76. GA 136. QRS 82. QT 370. QTc 416. Normal axis. Normal QRS. Nonspecific T waves. Medical Decision Making - Medical Decision Making Patient is reevaluated and somewhat improved. Patient still has some discomfort in her arm region. Patient is updated on results and plan. Case was discussed in detail with Dr. Evans, covering for Dr. parkinson, who will admit. - Lab Data Result diagrams: 08/11/18 12:24 08/11/18 12:24 Lab Results 08/11/18 08/11/18 08/11/18 Range/Units 12:24 12:24 12:24 WBC 6.6 (3.8-10.6) k/uL RBC 4.61 (3.80-5.40) m/uL Hgb 14.1 (11.4-16.0) gm/dL Hct 41.4 (34.0-46.0) % MCV 89.9 (80.0-100.0) fL MCH 30.6 (25.0-35.0) pg MCHC 34.0 (31.0-37.0) g/dL RDW 13.0 (11.5-15.5) % Plt Count 313 (150-450) k/uL Neutrophils % 55 % Lymphocytes % 33 % Monocytes % 5 % Eosinophils % 2 % Basophils % 1 % Neutrophils # 3.6 (1.3-7.7) k/uL Lymphocytes # 2.2 (1.0-4.8) k/uL Monocytes # 0.4 (0-1.0) k/uL Eosinophils # 0.2 (0-0.7) k/uL Basophils # 0.1 (0-0.2) k/uL PT (9.0-12.0) sec INR (<1.2) APTT (22.0-30.0) sec D-Dimer (<0.60) mg/L FEU Sodium 139 (137-145) mmol/L Potassium 4.9 (3.5-5.1) mmol/L Chloride 105 (98-107) mmol/L Carbon Dioxide 22 (22-30) mmol/L Anion Gap 12 mmol/L BUN 17 (7-17) mg/dL Creatinine 0.95 (0.52-1.04) mg/dL Est GFR (CKD-EPI)AfAm 72 (>60 ml/min/1.73 sqM) Est GFR (CKD-EPI)NonAf 62 (>60 ml/min/1.73 sqM) Glucose 77 (74-99) mg/dL Calcium 9.9 (8.4-10.2) mg/dL Total Bilirubin 0.5 (0.2-1.3) mg/dL AST 50 H (14-36) U/L ALT 36 (9-52) U/L Alkaline Phosphatase 62 (38-126) U/L Total Creatine Kinase 42 (30-135) U/L CK-MB (CK-2) 1.1 (0.0-2.4) ng/mL CK-MB (CK-2) Rel Index 2.6 Troponin I <0.012 (0.000-0.034) ng/mL NT-Pro-B Natriuret Pep pg/mL Total Protein 7.1 (6.3-8.2) g/dL Albumin 4.3 (3.5-5.0) g/dL 08/11/18 08/11/18 Range/Units 12:24 12:24 WBC (3.8-10.6) k/uL RBC (3.80-5.40) m/uL Hgb (11.4-16.0) gm/dL Hct (34.0-46.0) % MCV (80.0-100.0) fL MCH (25.0-35.0) pg MCHC (31.0-37.0) g/dL RDW (11.5-15.5) % Plt Count (150-450) k/uL Neutrophils % % Lymphocytes % % Monocytes % % Eosinophils % % Basophils % % Neutrophils # (1.3-7.7) k/uL Lymphocytes # (1.0-4.8) k/uL Monocytes # (0-1.0) k/uL Eosinophils # (0-0.7) k/uL Basophils # (0-0.2) k/uL PT 9.8 (9.0-12.0) sec INR 0.9 (<1.2) APTT 22.7 (22.0-30.0) sec D-Dimer 0.40 (<0.60) mg/L FEU Sodium (137-145) mmol/L Potassium (3.5-5.1) mmol/L Chloride (98-107) mmol/L Carbon Dioxide (22-30) mmol/L Anion Gap mmol/L BUN (7-17) mg/dL Creatinine (0.52-1.04) mg/dL Est GFR (CKD-EPI)AfAm (>60 ml/min/1.73 sqM) Est GFR (CKD-EPI)NonAf (>60 ml/min/1.73 sqM) Glucose (74-99) mg/dL Calcium (8.4-10.2) mg/dL Total Bilirubin (0.2-1.3) mg/dL AST (14-36) U/L ALT (9-52) U/L Alkaline Phosphatase (38-126) U/L Total Creatine Kinase (30-135) U/L CK-MB (CK-2) (0.0-2.4) ng/mL CK-MB (CK-2) Rel Index Troponin I (0.000-0.034) ng/mL NT-Pro-B Natriuret Pep 120 pg/mL Total Protein (6.3-8.2) g/dL Albumin (3.5-5.0) g/dL - Radiology Data Radiology results: image reviewed (Chest x-ray shows no acute process. COPD) Disposition Clinical Impression: Chest pain, Arm pain Disposition: ADMITTED IP TO THIS HOSP Is patient prescribed a controlled substance at d/c from ED?: No Referrals: Diamante Bynum MD [Primary Care Provider] - 1-2 days Decision Time: 15:06
[2018-08-11] MEDS ORDERED: NITROGLYCERIN SL TABS 0.4 MG TAB SUBLINGUAL PRN (15:06)
--- NOTE | 2018-08-11 15:53 | P.HPIM ---
History of Present Illness H&P Date: 08/11/18 This is a 68-year-old female patient of Dr. Bynum. Patient presented with complaints of tingling in bilateral hands and feet for 2 weeks. Patient also complaining of shortness of breath and chest pain that has been ongoing for the past 2 weeks. Patient did see her primary care doctor possibly 2 days ago and chest CT was completed that was reported as normal. She does have a past medical history for skin cancer, COPD, GERD, Martinez's palsy, diverticulitis, memory loss, patient is currently being worked up for Parkinson's and depression. Patient denies any significant cardiac history. Patient denies any nicotine depence. Patient denies any significant family history of cardiac history. Patient denies any recent trauma or fall. Chest x-ray completed showing no acute cardiopulmonary process. Radiographic sequel of COPD. EKG completed showing normal sinus rhythm. Nonspecific T-wave abnormality. Abnormal EKG. At this time cardiology services have been consulted. Will order cervical neck chest x-ray to rule out any abnormality contributing to symptoms. D-dimer within normal limits at 0.40. Troponin negative. At this time patient is still complaining of intermittent CVA symptoms including shortness of breath and chest pain. Patient denies any recent illness. Patient denies nausea vomiting or diarrhea. Patient denies any urinary burning or frequency. Review of Systems Please refer to HPI otherwise unremarkable Past Medical History Past Medical History: Cancer, COPD, GERD/Reflux Additional Past Medical History / Comment(s): hx [place] Palsy, diverticulitis, being worked up for parkinson's, tremors, memory loss, falls, LEFT EYE BASAL CELL History of Any Multi-Drug Resistant Organisms: None Reported Additional Past Surgical History / Comment(s): left lower eyelid surgery (basal cell ca removed), left fallopian tube and ovary removed. BILAT WRIST SX, COLONOSCOPY, BILAT CATARACTS Past Anesthesia/Blood Transfusion Reactions: No Reported Reaction Past Psychological History: Depression Smoking Status: Former smoker - Past Family History Father Additional Family Medical History / Comment(s): PARKINSONS. uncle also had. Medications and Allergies Home Medications Medication Instructions Recorded Confirmed Type Lansoprazole [Prevacid] 30 mg PO DAILY 12/12/15 08/11/18 History Levothyroxine Sodium [Synthroid] 25 mcg PO DAILY 12/12/15 08/11/18 History Multivitamins, Thera [Multivitamin 1 tab PO DAILY 12/12/15 08/11/18 History (formulary)] buPROPion XL [Wellbutrin XL] 150 mg PO DAILY 03/25/18 08/11/18 History Budesonide-Formot 160-4.5 Mcg 2 puff INHALATION RT-BID 04/17/18 08/11/18 History [Symbicort 160-4.5 Mcg Inhaler] Venlafaxine HCl ER [Effexor Xr] 300 mg PO DAILY 04/17/18 08/11/18 History lamoTRIgine [LaMICtal] 50 mg PO BID 04/17/18 08/11/18 History Docusate [Colace] 100 mg PO DAILY 04/30/18 08/11/18 History clonazePAM [KlonoPIN] 0.5 mg PO BID@0800,1200 04/30/18 08/11/18 History Cholecalciferol [Vitamin D3] 5,000 unit PO DAILY 08/11/18 08/11/18 History Vit C/Ascorb Sod/Multivit-Min 1,000 mg PO DAILY 08/11/18 08/11/18 History [Emergen-C 500 mg Chewable Tab] clonazePAM [KlonoPIN] 0.75 mg PO HS 08/11/18 08/11/18 History Allergies Allergy/AdvReac Type Severity Reaction Status Date / Time levofloxacin [From Levaquin] AdvReac Hallucinati Verified 08/11/18 13:37 ons metronidazole [From Flagyl] AdvReac Hallucinati Verified 08/11/18 13:37 ons naproxen [From Naprosyn] AdvReac Hallucinati Verified 08/11/18 13:37 ons Physical Exam Vitals: Vital Signs Temp Pulse Resp BP Pulse Ox 08/11/18 14:25 22 08/11/18 11:47 98.2 F 83 18 136/83 100 Intake and Output 08/11/18 08/11/18 08/11/18 06:59 14:59 22:59 Other: Weight 75.75 kg Head normocephalic Neck supple Lungs clear to auscultation bilaterally no wheezing or crackles Heart regular rate and rhythm S1-S2, no rub or gallop Abdomen is soft nontender nondistended positive bowel sounds no hepatosplenomegaly Extremities no edema Neuro alert and orientated to 3 Results CBC & Chem 7: 08/11/18 12:24 08/11/18 12:24 Labs: Abnormal Lab Results - Last 24 Hours (Table) 08/11/18 Range/Units 12:24 AST 50 H (14-36) U/L Assessment and Plan Assessment: 1. Chest pain with shortness of breath. Patient recently underwent outpatient chest CT showing no significantly abnormality to account for patient's symptoms. D-dimer 0.40. Troponin negative. Chest x-ray completed showing no acute cardiopulmonary process. Radiographic sequela of COPD. EKG completed showing normal sinus rhythm. Nonspecific T-wave abnormality. Abnormal EKG. Cardiology services have been consulted. Serial Troponins have been ordered 2. Tingling and pain to right arm. US axilla of right arm completed no sonographic correlate to the patient's stated palpable abnormality. Will order x-ray of cervical this time to rule out any abnormality 3. History of diverticulitis 4. History of Martinez's palsy. 5. History of depression. 6. History of hypothyroidism. Synthroid resumed
--- NOTE | 2018-08-11 17:41 | XR ---
EXAMINATION TYPE: XR cervical spine comp DATE OF EXAM: 08/11/2018 TECHNIQUE: Frontal, lateral, oblique, and open mouth view of the cervical spine are obtained. HISTORY: numbness and tingling to arm neck pain. COMPARISON: None FINDINGS: The cervical spine is visualized in its entirety from C1 thru the top of T1 level, it is s atisfactory in alignment without evidence of acute fracture or dislocation. The pre-vertebral soft t issue appears within normal limits. The C1-C2 articulation is within normal limits on the open mouth view. Vertebral body heights are maintained. Mild disc space narrowing C5-C6 level is present. The oblique images are within normal limits. Overlying soft tissue is unremarkable. IMPRESSION: Mild disc space narrowing C5-C6 level.
[2018-08-11] MEDS: ACETAMINOPHEN TAB 325 MG TAB PO PRN (18:52)
[2018-08-11 19:29] LABS: Creatine Kinase 43 U/L (30-135)
[2018-08-11 19:41] LABS: Creatine Kinase MB 0.8 ng/mL (0.0-2.4); Troponin I <0.012 ng/mL (0.000-0.034)
[2018-08-11] MEDS: SYMBICORT 160-4.5 MCG INHALER INHALATION SCH (19:48)
[2018-08-11] MEDS: clonazePAM 0.5 MG TAB PO SCH (21:18)
[2018-08-11] MEDS: NITROGLYCERIN OINT 1 INCH/GM PACKET TOPICAL SCH (21:23)
[2018-08-11] MEDS: FAMOTIDINE 20 MG TAB PO SCH (22:58)
[2018-08-11] MEDS: lamoTRIgine 25 MG TAB PO SCH (23:22)
[2018-08-12 00:05] LABS: Appearance,Urine Clear (Clear); Bilirubin,Urine Negative (Negative); Blood,Urine Negative (Negative); Color,Urine Light Yellow; Glucose,Urine (UA) Negative (Negative); Ketones,Urine Negative (Negative); Leukocyte Esterase,Urine Negative (Negative); Nitrite,Urine Negative (Negative); Protein,Urine Negative (Negative); Specific Gravity,Urine 1.006 (1.001-1.035); Urobilinogen,Urine <2.0 mg/dL (<2.0)
[2018-08-12] MEDS: NITROGLYCERIN OINT 1 INCH/GM PACKET TOPICAL SCH ×2 (01:15→05:48)
[2018-08-12 01:27] LABS: Creatine Kinase 45 U/L (30-135)
[2018-08-12 01:40] LABS: Creatine Kinase MB 0.9 ng/mL (0.0-2.4); Troponin I <0.012 ng/mL (0.000-0.034)
[2018-08-12] MEDS: ACETAMINOPHEN TAB 325 MG TAB PO PRN ×3 (05:46→20:44)
[2018-08-12] MEDS: LEVOTHYROXINE 25 MCG TAB PO SCH (05:46)
[2018-08-12 07:04] LABS: Albumin 3.7 g/dL (3.5-5.0); Calcium 9.1 mg/dL (8.4-10.2); Potassium 4.6 mmol/L (3.5-5.1); Total Bilirubin 0.2 mg/dL (0.2-1.3); Total Protein 6.2 g/dL (6.3-8.2)
[2018-08-12 07:47] LABS: Basophils # (A) 0.1 k/uL (0-0.2); Basophils % (A) 1 %; Eosinophils # (A) 0.2 k/uL (0-0.7); Eosinophils % (A) 3 %; HCT 38.1 % (34.0-46.0); HGB 12.4 gm/dL (11.4-16.0); Lymphocytes # (A) 2.4 k/uL (1.0-4.8); Lymphocytes % (A) 39 %; MCH 29.5 pg (25.0-35.0); MCHC 32.6 g/dL (31.0-37.0); MCV 90.4 fL (80.0-100.0); Mean Platelet Volume 6.7; Monocytes # (A) 0.4 k/uL (0-1.0); Monocytes % (A) 6 %; Neutrophils # (A) 2.8 k/uL (1.3-7.7); Neutrophils % (A) 47 %; Platelet Count 282 k/uL (150-450); RBC 4.22 m/uL (3.80-5.40)
[2018-08-12] MEDS: SYMBICORT 160-4.5 MCG INHALER INHALATION SCH (09:12)
[2018-08-12] MEDS: lamoTRIgine 25 MG TAB PO SCH ×2 (09:26→20:08)
[2018-08-12] MEDS: ASPIRIN 325 MG TAB PO SCH (09:27)
[2018-08-12] MEDS: LOSARTAN 50 MG TAB PO SCH (09:27)
[2018-08-12] MEDS: CHOLECALCIFEROL 1,000 UNIT TAB PO SCH (09:27)
[2018-08-12] MEDS: ASCORBIC ACID 500 MG TAB PO SCH (09:27)
[2018-08-12] MEDS: clonazePAM 0.5 MG TAB PO SCH ×3 (09:27→20:08)
[2018-08-12] MEDS: VENLAFAXINE HCL ER 150 MG CAP PO SCH (09:27)
[2018-08-12] MEDS: buPROPion XL 150 MG TAB.ER.24H PO SCH (09:28)
[2018-08-12] MEDS: DOCUSATE 100 MG CAP PO SCH (09:28)
[2018-08-12] MEDS: PANTOPRAZOLE 40 MG TABLET PO SCH (09:28)
[2018-08-12] MEDS: MULTIVITAMINS, THERA 1 EACH TAB PO SCH (09:28)
[2018-08-12] MEDS: FAMOTIDINE 20 MG TAB PO SCH ×2 (09:28→20:08)
--- NOTE | 2018-08-12 10:02 | P.CRDCN ---
History of Present Illness History of present illness: This is a pleasant 68-year-old female past medical history significant for COPD, gastroesophageal reflux disease and hypothyroidism. She denies history of hypertension, dyslipidemia, coronary artery disease, diabetes mellitus and has never seen a blending line attendant for any reason. We've been asked to see her in consultation for chest pain. She states for the previous 2 weeks she has felt increasingly short of breath with associated tightness in the midsternal region as well as numbness and tingling in both of her hands and feet. Her shortness of breath begins as soon as she wakes up in the morning and persists throughout the day and has not intensified or relieved by rest or exertion. The tightness in her chest is very intermittent and is worse when she tries to take in a deep breath. She denies associated dizziness, nausea, vomiting, diaphoresis or palpitations. At the time of my exam she is seen resting comfortably in bed in no acute distress. She denies chest discomfort at this time. EKG reveals sinus mechanism with nonspecific T wave abnormalities noted. Chest x-ray is negative for an acute cardiopulmonary process with evidence of COPD. Laboratory data reviewed, WBC 6, hemoglobin 12.4, platelets 282, d-dimer 0.4, sodium 141, potassium 4.6, cardiac enzymes negative 3, and T proBNP 120, triglycerides 500. She takes no daily cardiac medications. At the time of my exam: CONSTITUTIONAL: Denies fever. Denies chills. EYES: Denies blurred vision. Denies vision changes. Denies eye pain. EARS, NOSE, MOUTH & THROAT: Denies headache. Denies sore throat. Denies ear pain. CARDIOVASCULAR: Denies chest pain. Complains of shortness of breath. Denies orthopnea. Denies PND. Denies palpitations. RESPIRATORY: Denies cough. GASTROINTESTINAL: Denies abdominal pain. Denies diarrhea. Denies constipation. Denies nausea. Denies vomiting. MUSCULOSKELETAL: Denies myalgias. INTEGUMENTARY: Denies pruitis. Denies rash. NEUROLOGIC: Denies numbness. Denies tingling. Denies weakness. PSYCHIATRIC: Denies anxiety. Denies depression. ENDOCRINE: Denies fatigue. Denies weight change. Denies polydipsia. Denies polyurina. GENITOURINARY: Denies burning, hematuria or urgency with micturation. HEMATOLOGIC: Denies history of anemia. Denies bleeding. Blood pressure 144/85 heart rate 83 afebrile maintaining oxygen saturation on room air GENERAL: This is a 68-year-old female in no apparent distress at the time of my examination. HEENT: Head is atraumatic, normocephalic. Pupils are equal, round. Sclerae anicteric. Conjunctivae are clear. Mucous membranes of the mouth are moist. Neck is supple. There is no jugular venous distention. No carotid bruit is heard. LUNGS: Clear to auscultation no wheezes, rales or rhonchi. No chest wall tenderness is noted on palpation or with deep breathing. HEART: Regular rate and rhythm without murmurs, rubs or gallops. S1 and S2 heard. ABDOMEN: Soft, nontender. Bowel sounds are heard. No organomegaly noted. EXTREMITIES: No evidence of peripheral edema and no calf tenderness noted. VASCULAR: Radial and dorsalis pedis pulses palpated, no evidence of clubbing. NEUROLOGIC: Patient is awake, alert and oriented x3. ASSESSMENT Chest pain, atypical for angina. An acute coronary event has been ruled out. Shortness of breath be be associated with an exacerbation of COPD, pulmonary has been consult. Hypertension Dyslipidemia Former nicotine dependence PLAN An acute coronary event has been ruled out. Obtain 2-D echocardiogram and Doppler study to assess cardiac structure and function. Initiate on losartan 50 mg daily. Stable from a cardiac perspective. Recommend further evaluation by pulmonary care team. Recommend following up in the office in 2 weeks once her shortness of breath has been addressed for outpatient stress testing. This plan has been communicated to the patient and her . Thank you kindly for this consultation. Nurse Practitioner note has been reviewed, I agree with a documented findings and plan of care. Patient was seen and examined. Past Medical History Past Medical History: Cancer, COPD, GERD/Reflux Additional Past Medical History / Comment(s): 18 pt wants both the flu and pne vaccine while here. hx [place] Palsy affected lt side of face, diverticulosis, being worked up for parkinson's, tremors, past falls,left eye lid basal cell cancer-removed,past [id number], migraines-in past took depakote for them,"cluster headaches. History of Any Multi-Drug Resistant Organisms: None Reported Additional Past Surgical History / Comment(s): left lower eyelid surgery (basal cell ca removed), left fallopian tube and ovary removed. BILAT WRIST SX, COLONOSCOPY, BILAT CATARACTS Past Anesthesia/Blood Transfusion Reactions: Previous Problems w/ Anesthesia Additional Past Anesthesia/Blood Transfusion Reaction / Comment(s): difficulty waking up after sx, clausterphobia. never had any blood transfusions. Smoking Status: Former smoker - Past Family History Father Additional Family Medical History / Comment(s): PARKINSONS. uncle also had. Mother Additional Family Medical History / Comment(s): . hx of lupus Medications and Allergies Home Medications Medication Instructions Recorded Confirmed Type Lansoprazole [Prevacid] 30 mg PO DAILY 12/12/15 08/11/18 History Levothyroxine Sodium [Synthroid] 25 mcg PO DAILY 12/12/15 08/11/18 History Multivitamins, Thera [Multivitamin 1 tab PO DAILY 12/12/15 08/11/18 History (formulary)] buPROPion XL [Wellbutrin XL] 150 mg PO DAILY 03/25/18 08/11/18 History Budesonide-Formot 160-4.5 Mcg 2 puff INHALATION RT-BID 04/17/18 08/11/18 History [Symbicort 160-4.5 Mcg Inhaler] Venlafaxine HCl ER [Effexor Xr] 300 mg PO DAILY 04/17/18 08/11/18 History lamoTRIgine [LaMICtal] 50 mg PO BID 04/17/18 08/11/18 History Docusate [Colace] 100 mg PO DAILY 04/30/18 08/11/18 History clonazePAM [KlonoPIN] 0.5 mg PO BID@0800,1200 04/30/18 08/11/18 History Cholecalciferol [Vitamin D3] 5,000 unit PO DAILY 08/11/18 08/11/18 History Vit C/Ascorb Sod/Multivit-Min 1,000 mg PO DAILY 08/11/18 08/11/18 History [Emergen-C 500 mg Chewable Tab] clonazePAM [KlonoPIN] 0.75 mg PO HS 08/11/18 08/11/18 History Allergies Allergy/AdvReac Type Severity Reaction Status Date / Time levofloxacin [From Levaquin] AdvReac Hallucinati Verified 08/11/18 13:37 ons metronidazole [From Flagyl] AdvReac Hallucinati Verified 08/11/18 13:37 ons naproxen [From Naprosyn] AdvReac Hallucinati Verified 08/11/18 13:37 ons Physical Exam Vitals: Vital Signs Temp Pulse Pulse Resp BP BP Pulse Ox 08/12/18 07:05 97.8 F 83 18 144/85 98 08/12/18 04:00 86 16 08/12/18 03:50 98.0 F 86 16 122/69 95 08/12/18 00:00 78 16 08/11/18 23:39 98.2 F 78 16 133/76 96 08/11/18 20:00 80 16 08/11/18 19:48 98.3 F 80 16 119/68 95 08/11/18 18:05 96 08/11/18 17:39 98.0 F 91 18 124/72 96 08/11/18 17:16 88 18 117/90 96 08/11/18 14:25 22 08/11/18 11:47 98.2 F 83 18 136/83 100 Intake and Output 08/11/18 08/12/18 08/12/18 22:59 06:59 14:59 Intake Total 300 Balance 300 Intake: Oral 300 Other: Voiding Method Toilet Toilet # Voids 2 Weight 75.75 kg Results 08/12/18 06:20 08/12/18 06:20 Cardiac Enzymes 08/11/18 08/11/18 08/11/18 Range/Units 12:24 12:24 18:36 AST 50 H (14-36) U/L CK-MB (CK-2) 1.1 0.8 (0.0-2.4) ng/mL Troponin I <0.012 <0.012 (0.000-0.034) ng/mL 08/12/18 08/12/18 Range/Units 00:50 06:20 AST 44 H (14-36) U/L CK-MB (CK-2) 0.9 (0.0-2.4) ng/mL Troponin I <0.012 (0.000-0.034) ng/mL Coagulation 08/11/18 Range/Units 12:24 PT 9.8 (9.0-12.0) sec APTT 22.7 (22.0-30.0) sec Lipids 08/12/18 Range/Units 06:20 Triglycerides 500 H (<150) mg/dL Cholesterol 263 H (<200) mg/dL HDL Cholesterol 39 L (40-60) mg/dL CBC 08/11/18 08/12/18 Range/Units 12:24 06:20 WBC 6.6 6.0 (3.8-10.6) k/uL RBC 4.61 4.22 (3.80-5.40) m/uL Hgb 14.1 12.4 (11.4-16.0) gm/dL Hct 41.4 38.1 (34.0-46.0) % Plt Count 313 282 (150-450) k/uL Comprehensive Metabolic Panel 08/11/18 08/12/18 Range/Units 12:24 06:20 Sodium 139 141 (137-145) mmol/L Potassium 4.9 4.6 (3.5-5.1) mmol/L Chloride 105 109 H (98-107) mmol/L Carbon Dioxide 22 28 (22-30) mmol/L BUN 17 15 (7-17) mg/dL Creatinine 0.95 0.96 (0.52-1.04) mg/dL Glucose 77 101 H (74-99) mg/dL Calcium 9.9 9.1 (8.4-10.2) mg/dL AST 50 H 44 H (14-36) U/L ALT 36 37 (9-52) U/L Alkaline Phosphatase 62 54 (38-126) U/L Total Protein 7.1 6.2 L (6.3-8.2) g/dL Albumin 4.3 3.7 (3.5-5.0) g/dL Current Medications Generic Name Dose Route Start Last Admin Trade Name Freq PRN Reason Stop Dose Admin Acetaminophen 650 mg 08/11/18 18:18 08/12/18 05:46 Tylenol Tab PO 650 mg Q6HR PRN Administration Fever and/ or Pain Ascorbic Acid 1,000 mg 08/12/18 09:00 Vitamin C PO DAILY [facility] Aspirin 325 mg 08/12/18 09:00 Aspirin PO DAILY [facility] Budesonide/Formoterol Fumarate 2 puff 08/11/18 20:00 08/11/18 19:48 Symbicort 160-4.5 Mcg Inhaler INHALATION 2 puff RT-BID [facility] Administration Bupropion HCl 150 mg 08/12/18 09:00 Wellbutrin Xl PO DAILY [facility] Cholecalciferol 5,000 unit 08/12/18 09:00 Vitamin D3 PO DAILY [facility] Clonazepam 0.5 mg 08/12/18 08:00 Klonopin PO BID@0800,1200 [facility] Clonazepam 0.75 mg 08/11/18 21:00 08/11/18 21:18 Klonopin PO 0.75 mg HS [facility] Administration Docusate Sodium 100 mg 08/12/18 09:00 Colace PO DAILY [facility] Famotidine 20 mg 08/11/18 21:00 08/11/18 22:58 Pepcid PO Not Given BID [facility] Lamotrigine 50 mg 08/11/18 21:00 08/11/18 23:22 Lamictal PO 50 mg BID [facility] Administration Levothyroxine Sodium 25 mcg 08/12/18 06:30 08/12/18 05:46 Synthroid PO 25 mcg DAILY@0630 [facility] Administration Multivitamins 1 each 08/12/18 09:00 Theragran PO DAILY [facility] Nitroglycerin 1 inch 08/11/18 18:00 08/12/18 05:48 Nitro-Bid Oint TOPICAL Not Given Q6HR [facility] Nitroglycerin 0.4 mg 08/11/18 15:06 Nitrostat SUBLINGUAL Q5M PRN Chest Pain Pantoprazole Sodium 40 mg 08/12/18 07:30 Protonix PO AC-BRKFST [facility] Sodium Chloride 10 ml 08/11/18 21:00 08/12/18 00:14 Saline Flush IV Not Given BID [facility] Venlafaxine HCl 300 mg 08/12/18 09:00 Effexor Xr PO DAILY [facility] Intake and Output 08/11/18 08/12/18 08/12/18 22:59 06:59 14:59 Intake Total 300 Balance 300 Intake: Oral 300 Other: Voiding Method Toilet Toilet # Voids 2 Weight 75.75 kg 08/12/18 06:20 08/12/18 06:20
[2018-08-12] MEDS ORDERED: IPRATROPIUM-ALBUTEROL 3 ML NEB INHALATION PRN (11:29)
[2018-08-12] MEDS: methylPREDNISolone SOD SUCCI 125 MG/2 ML VIAL IV SCH ×2 (12:25→20:08)
[2018-08-12] MEDS: IPRATROPIUM-ALBUTEROL 3 ML NEB INHALATION SCH ×3 (12:39→19:54)
--- NOTE | 2018-08-12 12:40 | P.CNPUL ---
History of Present Illness Consult date: 08/12/18 Requesting physician: Gonsalo Evans Reason for consult: dyspnea Chief complaint: Shortness of breath, wheezing, cough History of present illness: This is 68-year-old white female patient of Dr. aparicio, who presented to the emergency department on 08/11/2018 for evaluation of difficulty breathing, cough , without phlegm production, tingling in her fingers of bilateral hands and feet. Patient had some neck discomfort, upper arm and upper back discomfort, aching discomfort in her chest. Patient apparently did see her primary care provider, and CT chest was completed, which showed no significant abnormality, lungs were clear and free of infiltrate, no atelectasis, no pulmonary nodule or mass, no pleural effusion, no mediastinal mass or lymphadenopathy. Chest x-ray was completed in the emergency department, that showed no acute cardiopulmonary process, changes consistent with underlying COPD were noted. Negative for any leukocytosis, fever or chills, lab work showed WBC of 6.6, d-dimer was within normal limits at 0.40, troponins were negative 3, proBNP at 120, electrolytes renal profile, LFTs were all unremarkable, urinalysis was negative. X-ray of the cervical spine showed mild disc space narrowing at C5 to C6 level. EKG showed normal sinus rhythm nonspecific T-wave abnormality. Patient was seen by Dr. Valle was in the past, started on Symbicort for her COPD. Patient is an ex -smoker, quit 15 years ago, carries 34 years of smoking history of less than a pack a day. Patient states lately her breathing has been worse, she at times hyperventilates, wheezes. Her PCP thought that her shortness of breath could be related to her anxiety, patient does see Dr. Cary Camacho for anxiety. Started her on Klonopin, with no significant improvement in her breathing. Patient is still short of breath and wheezy, and were consulted in regards to acute exacerbation of COPD. Review of Systems All systems: negative Constitutional: Denies chills, Denies fever Eyes: denies blurred vision, denies pain Ears, nose, mouth and throat: Denies headache, Denies sore throat Cardiovascular: Denies chest pain, Denies shortness of breath Respiratory: Reports cough, Reports dyspnea, Reports wheezing Gastrointestinal: Denies abdominal pain, Denies diarrhea, Denies nausea, Denies vomiting Genitourinary: Denies dysuria, Denies hematuria Musculoskeletal: Denies myalgias Integumentary: Denies pruritus, Denies rash Neurological: Denies numbness, Denies weakness Psychiatric: Denies anxiety, Denies depression Endocrine: Denies fatigue, Denies weight change Past Medical History Past Medical History: Cancer, COPD, GERD/Reflux Additional Past Medical History / Comment(s): 08-11-17 pt wants both the flu and pne vaccine while here. hx [place] Palsy affected lt side of face, diverticulosis, being worked up for parkinson's, tremors, past falls,left eye lid basal cell cancer-removed,past [id number], migraines-in past took depakote for them,"cluster headaches. History of Any Multi-Drug Resistant Organisms: None Reported Additional Past Surgical History / Comment(s): left lower eyelid surgery (basal cell ca removed), left fallopian tube and ovary removed. BILAT WRIST SX, COLONOSCOPY, BILAT CATARACTS Past Anesthesia/Blood Transfusion Reactions: Previous Problems w/ Anesthesia Additional Past Anesthesia/Blood Transfusion Reaction / Comment(s): difficulty waking up after sx, clausterphobia. never had any blood transfusions. Smoking Status: Former smoker - Past Family History Father Additional Family Medical History / Comment(s): PARKINSONS. uncle also had. Mother Additional Family Medical History / Comment(s): . hx of lupus Medications and Allergies Home Medications Medication Instructions Recorded Confirmed Type Lansoprazole [Prevacid] 30 mg PO DAILY 12/12/15 08/11/18 History Levothyroxine Sodium [Synthroid] 25 mcg PO DAILY 12/12/15 08/11/18 History Multivitamins, Thera [Multivitamin 1 tab PO DAILY 12/12/15 08/11/18 History (formulary)] buPROPion XL [Wellbutrin XL] 150 mg PO DAILY 03/25/18 08/11/18 History Budesonide-Formot 160-4.5 Mcg 2 puff INHALATION RT-BID 04/17/18 08/11/18 History [Symbicort 160-4.5 Mcg Inhaler] Venlafaxine HCl ER [Effexor Xr] 300 mg PO DAILY 04/17/18 08/11/18 History lamoTRIgine [LaMICtal] 50 mg PO BID 04/17/18 08/11/18 History Docusate [Colace] 100 mg PO DAILY 04/30/18 08/11/18 History clonazePAM [KlonoPIN] 0.5 mg PO BID@0800,1200 04/30/18 08/11/18 History Cholecalciferol [Vitamin D3] 5,000 unit PO DAILY 08/11/18 08/11/18 History Vit C/Ascorb Sod/Multivit-Min 1,000 mg PO DAILY 08/11/18 08/11/18 History [Emergen-C 500 mg Chewable Tab] clonazePAM [KlonoPIN] 0.75 mg PO HS 08/11/18 08/11/18 History Allergies Allergy/AdvReac Type Severity Reaction Status Date / Time levofloxacin [From Levaquin] AdvReac Hallucinati Verified 08/11/18 13:37 ons metronidazole [From Flagyl] AdvReac Hallucinati Verified 08/11/18 13:37 ons naproxen [From Naprosyn] AdvReac Hallucinati Verified 08/11/18 13:37 ons Physical Exam Vitals: Vital Signs Temp Pulse Pulse Resp BP BP Pulse Ox 08/12/18 12:00 98.3 F 71 18 146/86 97 08/12/18 07:05 97.8 F 83 18 144/85 98 08/12/18 04:00 86 16 08/12/18 03:50 98.0 F 86 16 122/69 95 08/12/18 00:00 78 16 08/11/18 23:39 98.2 F 78 16 133/76 96 08/11/18 20:00 80 16 08/11/18 19:48 98.3 F 80 16 119/68 95 08/11/18 18:05 96 08/11/18 17:39 98.0 F 91 18 124/72 96 08/11/18 17:16 88 18 117/90 96 08/11/18 14:25 22 Intake and Output 08/11/18 08/12/18 08/12/18 22:59 06:59 14:59 Intake Total 300 Balance 300 Intake: Oral 300 Other: Voiding Method Toilet Toilet Toilet # Voids 2 Weight 75.75 kg GENERAL EXAM: Alert, pleasant, 68-year-old white female slightly tachypneic, but in no distress. HEAD: Normocephalic/atraumatic. EYES: Normal reaction of pupils, equal size. Conjunctiva pink, sclera white. NOSE: Clear with pink turbinates. THROAT: No erythema or exudates. NECK: No masses, no JVD, no thyroid enlargement, no adenopathy. CHEST: No chest wall deformity. Symmetrical expansion. LUNGS: Equal air entry with prolongation of expiratory phase, and an expiratory wheezing CVS: Regular rate and rhythm, normal S1 and S2, no gallops, no murmurs, no rubs ABDOMEN: Soft, nontender. No hepatosplenomegaly, normal bowel sounds, no guarding or rigidity. EXTREMITIES: No clubbing, no edema, no cyanosis, 2+ pulses and upper and lower extremities. MUSCULOSKELETAL: Muscle strength and tone normal. SPINE: No scoliosis or deformity SKIN: No rashes CENTRAL NERVOUS SYSTEM: Alert and oriented -3. No focal deficits, tone is normal in all 4 extremities. PSYCHIATRIC: Alert and oriented -3. Appropriate affect. Intact judgment and insight. Results - Laboratory Findings CBC and BMP: 08/12/18 06:20 08/12/18 06:20 PT/INR, D-dimer PT 9.8 sec (9.0-12.0) 08/11/18 12:24 INR 0.9 (<1.2) 08/11/18 12:24 D-Dimer 0.40 mg/L FEU (<0.60) 08/11/18 12:24 Abnormal lab findings: Abnormal Labs 08/11/18 08/12/18 12:24 06:20 Chloride 109 H Glucose 101 H AST 50 H 44 H Total Protein 6.2 L Triglycerides 500 H Cholesterol 263 H HDL Cholesterol 39 L - Diagnostic Findings Chest x-ray: report reviewed, image reviewed CT scan - chest: report reviewed, image reviewed Additional studies: EKG reviewed Assessment and Plan Plan: Assessment: #1. Acute exacerbation of chronic obstructive pulmonary disease. Chest x-rays and CT chest were reviewed, and showed no evidence of active pulmonary disease. D-dimer negative #2. Tingling in bilateral hands and feet present on admission, likely related to hyperventilation related respiratory alkalosis #3. Neck discomfort, x-ray of the cervical neck showed mild disc space narrowing at C5 to C6 #4. Chest pain, negative troponins, EKG with nonspecific T-wave abnormality #5. Hypertension #6. Dyslipidemia #7. Nicotine dependence, currently in remission, quit smoking 15 years ago, carries 34 years of smoking history, of less than a pack a day #8. History of diverticulitis #9. Anxiety/depression #10. Hypothyroidism Plan: We'll add IV steroids at 60 mg every 6 hours, we'll add Pulmicort and Perforomist, DuoNeb. Chest x-rays and CT chest were reviewed with Dr. Veliz, did not show any evidence of acute pulmonary process. D-dimer was negative, patient is bronchospastic on today's exam, treat her for acute exacerbation of COPD. Continue to follow I performed a history & physical examination of the patient and discussed their management with my nurse practitioner, Kenna Addison. I reviewed the nurse practitioner's note and agree with the documented findings and plan of care. Lung sounds are positive for end expiratory wheezes, diminished breath sounds. The findings and the impression was discussed with the patient. I attest to the documentation by the nurse practitioner. Time with Patient: Greater than 30
--- NOTE | 2018-08-12 14:48 | P.PN ---
Subjective Progress Note Date: 08/12/18 This is a 68-year-old female patient of Dr. Bynum. Patient presented with complaints of tingling in bilateral hands and feet for 2 weeks. Patient also complaining of shortness of breath and chest pain that has been ongoing for the past 2 weeks. Patient did see her primary care doctor possibly 2 days ago and chest CT was completed that was reported as normal. She does have a past medical history for skin cancer, COPD, GERD, Martinez's palsy, diverticulitis, memory loss, patient is currently being worked up for Parkinson's and depression. Patient denies any significant cardiac history. Patient denies any nicotine depence. Patient denies any significant family history of cardiac history. Patient denies any recent trauma or fall. Chest x-ray completed showing no acute cardiopulmonary process. Radiographic sequel of COPD. EKG completed showing normal sinus rhythm. Nonspecific T-wave abnormality. Abnormal EKG. At this time cardiology services have been consulted. Will order cervical neck chest x-ray to rule out any abnormality contributing to symptoms. D-dimer within normal limits at 0.40. Troponin negative. At this time patient is still complaining of intermittent CVA symptoms including shortness of breath and chest pain. Patient denies any recent illness. Patient denies nausea vomiting or diarrhea. Patient denies any urinary burning or frequency. on 08/12/2018 patient is alert and oriented 3. Upon arrival to room patient resting comfortably in bed without any tachypnea or respiratory distress noted. Upon wakening patient had increased forced breathing. Patient has been cleared by cardiology services. Pulmonary services recommending IV steroids for 24 hours. at this time patient is still complaining when she wakes having shortness of breath. Patient remains SpO2 greater than 96 on room air. Patient denies chest pain. Patient denies nausea vomiting or diarrhea. Patient denies any urinary burning or frequency. Objective - Vital Signs Vital signs: Vital Signs Temp 98.3 F 08/12/18 12:00 Pulse 80 08/12/18 12:50 Resp 18 08/12/18 12:00 BP 146/86 08/12/18 12:00 Pulse Ox 97 08/12/18 12:00 Intake & Output 08/11/18 08/12/18 08/12/18 18:59 06:59 18:59 Intake Total 300 400 Balance 300 400 Weight 75.75 kg 75.75 kg Intake: Oral 300 400 Other: Voiding Method Toilet Toilet Toilet # Voids 2 - Exam Head normocephalic Neck supple Lungs clear to auscultation bilaterally no wheezing or crackles Heart regular rate and rhythm S1-S2, no rub or gallop Abdomen is soft nontender nondistended positive bowel sounds no hepatosplenomegaly Extremities no edema Neuro alert and orientated to 3 - Labs CBC & Chem 7: 08/12/18 06:20 08/12/18 06:20 Labs: Abnormal Lab Results - Last 24 Hours (Table) 08/12/18 Range/Units 06:20 Chloride 109 H (98-107) mmol/L Glucose 101 H (74-99) mg/dL AST 44 H (14-36) U/L Total Protein 6.2 L (6.3-8.2) g/dL Triglycerides 500 H (<150) mg/dL Cholesterol 263 H (<200) mg/dL HDL Cholesterol 39 L (40-60) mg/dL Assessment and Plan Assessment: 1. Chest pain with shortness of breath. Patient recently underwent outpatient chest CT showing no significantly abnormality to account for patient's symptoms. D-dimer 0.40. Troponin negative. Chest x-ray completed showing no acute cardiopulmonary process. Radiographic sequela of COPD. EKG completed showing normal sinus rhythm. Nonspecific T-wave abnormality. Abnormal EKG. troponins negative. per cardiology services acute coronary event has been ruled out. 2-D echo has been ordered patient to follow-up with cardiology services outpatient for outpatient stress testing in 2 weeks. For pulmonary patient started on IV Solu-Medrol 2. Tingling and pain to right arm. US axilla of right arm completed no sonographic correlate to the patient's stated palpable abnormality. x-ray cervical spine completed showing mild disc space narrowing at C5 to C6 level. Patient to follow-up outpatient with primary care provider for further evaluation 3. History of diverticulitis 4. History of Martinez's palsy. 5. History of depression. 6. History of hypothyroidism. Synthroid resumed GI prophylaxis Pepcid. DVT prophylaxis Lovenox I performed an examination of the patient and discussed their management with the Nurse Practitioner. I have reviewed the Nurse Practitioner's notes and agree with the documented findings and plan of care
[2018-08-12] MEDS: CALCIUM CARBONATE 500 MG CHEWABLE PO PRN (16:13)
--- NOTE | 2018-08-12 18:46 | ECHOF ---
Referral Reason:cp MEASUREMENTS -------- HEIGHT: 167.6 cm WEIGHT: 75.7 kg BP: 121/68 RVIDd: 3.0 cm (< 3.3) IVSd: 1.0 cm (0.6 - 1.1) LVIDd: 3.5 cm (3.9 - 5.3) LVPWd: 1.0 cm (0.6 - 1.1) IVSs: 1.2 cm LVIDs: 2.6 cm LVPWs: 1.2 cm LAESV Index (A-L): 16.73 ml/m Ao Diam: 2.9 cm (2.0 - 3.7) AV Cusp: 1.8 cm (1.5 - 2.6) LA Diam: 2.8 cm (2.7 - 3.8) EPSS: 1.2 cm MV E Martinez: 0.56 m/s MV DecT: 186 ms MV A Martinez: 0.74 m/s MV E/A Ratio: 0.76 RAP: 5.00 mmHg RVSP: 9.71 mmHg MV EF SLOPE: 68.72 mm/s (70 - 150) MV EXCURSION: 1.73 cm (> 18.000) FINDINGS -------- Sinus rhythm. This was a technically adequate study. The left ventricular size is normal. Left ventricular wall thickness is normal. Overall left vent ricular systolic function is normal with, an EF between 55 - 60 %. The right ventricle is normal in size and function. Normal LA size by volume 22+/-6 ml/m2. The right atrium is normal in size. There is mild aortic valve sclerosis. There is no evidence of aortic regurgitation. There is no e vidence of aortic stenosis. The mitral valve leaflets are mildly thickened. There is trace to mild mitral regurgitation. Trace tricuspid regurgitation present. Right ventricular systolic pressure is normal at < 35 mmHg. There is no evidence of pulmonary hypertension. The pulmonic valve was not well visualized. The aortic root size is normal. Normal inferior vena cava with normal inspiratory collapse consistent with estimated right atrial pre ssure of 5 mmHg. There is no pericardial effusion. CONCLUSIONS -------- 1. Sinus rhythm. 2. This was a technically adequate study. 3. The left ventricular size is normal. 4. Left ventricular wall thickness is normal. 5. Overall left ventricular systolic function is normal with, an EF between 55 - 60 %. 6. Normal LA size by volume 22+/-6 ml/m2. 7. There is mild aortic valve sclerosis. 8. The mitral valve leaflets are mildly thickened. 9. There is trace to mild mitral regurgitation. 10. Trace tricuspid regurgitation present. 11. Right ventricular systolic pressure is normal at < 35 mmHg. 12. There is no evidence of pulmonary hypertension. 13. The pulmonic valve was not well visualized. 14. The aortic root size is normal. 15. There is no pericardial effusion. RAWHIDE TRIMMER: Facundo Briggs RDCS
[2018-08-12] MEDS: FORMOTEROL FUMARATE 20 MCG/2 ML NEBU INHALATION SCH (19:54)
[2018-08-12] MEDS: BUDESONIDE 0.5 MG/2 ML NEBU INHALATION SCH (19:58)
[2018-08-13] MEDS ORDERED: methylPREDNISolone SOD SUCCI 125 MG/2 ML VIAL ONE
[2018-08-13] MEDS: methylPREDNISolone SOD SUCCI 125 MG/2 ML VIAL IV SCH ×4 (04:59→18:30)
[2018-08-13] MEDS: LEVOTHYROXINE 25 MCG TAB PO SCH (05:37)
[2018-08-13] MEDS: FORMOTEROL FUMARATE 20 MCG/2 ML NEBU INHALATION SCH ×2 (06:54→20:33)
[2018-08-13] MEDS: BUDESONIDE 0.5 MG/2 ML NEBU INHALATION SCH ×2 (06:54→20:33)
[2018-08-13] MEDS: IPRATROPIUM-ALBUTEROL 3 ML NEB INHALATION SCH ×4 (06:54→20:33)
[2018-08-13 08:15] LABS: Basophils % (A) 0 %; Eosinophils % (A) 0 %; HCT 43.4 % (34.0-46.0); Lymphocytes # (A) 1.4 k/uL (1.0-4.8); Lymphocytes % (A) 10 %; MCH 29.8 pg (25.0-35.0); MCHC 32.3 g/dL (31.0-37.0); MCV 92.2 fL (80.0-100.0); Mean Platelet Volume 7.4; Monocytes # (A) 0.5 k/uL (0-1.0); Monocytes % (A) 4 %; Neutrophils % (A) 85 %; Platelet Count 384 k/uL (150-450); RBC 4.71 m/uL (3.80-5.40); RDW 13.3 % (11.5-15.5); WBC 14.1 k/uL (3.8-10.6)
[2018-08-13 08:25] LABS: Albumin 4.8 g/dL (3.5-5.0); Calcium 10.2 mg/dL (8.4-10.2); Potassium 4.7 mmol/L (3.5-5.1); Total Bilirubin 0.3 mg/dL (0.2-1.3); Total Protein 7.7 g/dL (6.3-8.2)
[2018-08-13] MEDS: CHOLECALCIFEROL 1,000 UNIT TAB PO SCH (08:38)
[2018-08-13] MEDS: ASPIRIN 325 MG TAB PO SCH (08:38)
[2018-08-13] MEDS: PANTOPRAZOLE 40 MG TABLET PO SCH (08:39)
[2018-08-13] MEDS: LOSARTAN 50 MG TAB PO SCH (08:39)
[2018-08-13] MEDS: FAMOTIDINE 20 MG TAB PO SCH (08:39)
[2018-08-13] MEDS: lamoTRIgine 25 MG TAB PO SCH ×2 (08:39→20:20)
[2018-08-13] MEDS: MULTIVITAMINS, THERA 1 EACH TAB PO SCH (08:39)
[2018-08-13] MEDS: ENOXAPARIN 40 MG/0.4 ML SYRINGE SQ SCH (08:39)
[2018-08-13] MEDS: clonazePAM 0.5 MG TAB PO SCH ×3 (08:39→20:20)
[2018-08-13] MEDS: DOCUSATE 100 MG CAP PO SCH (08:39)
[2018-08-13] MEDS: buPROPion XL 150 MG TAB.ER.24H PO SCH (08:40)
[2018-08-13] MEDS: VENLAFAXINE HCL ER 150 MG CAP PO SCH (08:40)
[2018-08-13] MEDS: ASCORBIC ACID 500 MG TAB PO SCH (09:07)
--- NOTE | 2018-08-13 12:28 | P.PN ---
Subjective Progress Note Date: 08/13/18 Principal diagnosis: Shortness of breath, wheezing cough This is 68-year-old white female patient of Dr. aparicio, who presented to the emergency department on 08/11/2018 for evaluation of difficulty breathing, cough , without phlegm production, tingling in her fingers of bilateral hands and feet. Patient had some neck discomfort, upper arm and upper back discomfort, aching discomfort in her chest. Patient apparently did see her primary care provider, and CT chest was completed, which showed no significant abnormality, lungs were clear and free of infiltrate, no atelectasis, no pulmonary nodule or mass, no pleural effusion, no mediastinal mass or lymphadenopathy. Chest x-ray was completed in the emergency department, that showed no acute cardiopulmonary process, changes consistent with underlying COPD were noted. Negative for any leukocytosis, fever or chills, lab work showed WBC of 6.6, d-dimer was within normal limits at 0.40, troponins were negative 3, proBNP at 120, electrolytes renal profile, LFTs were all unremarkable, urinalysis was negative. X-ray of the cervical spine showed mild disc space narrowing at C5 to C6 level. EKG showed normal sinus rhythm nonspecific T-wave abnormality. Patient was seen by Dr. Valle was in the past, started on Symbicort for her COPD. Patient is an ex -smoker, quit 15 years ago, carries 34 years of smoking history of less than a pack a day. Patient states lately her breathing has been worse, she at times hyperventilates, wheezes. Her PCP thought that her shortness of breath could be related to her anxiety, patient does see Dr. Cary Camacho for anxiety. Started her on Klonopin, with no significant improvement in her breathing. Patient is still short of breath and wheezy, and were consulted in regards to acute exacerbation of COPD. On 08/13/2018 patient seen in follow-up in the observation unit, she still complains of being short of breath but improving, but sounds better on today's exam, a few end expiratory wheezes, good air entry bilaterally. No rhonchi. No cough, no fever or chills, vital signs are stable, room air pulse ox is 95%. Today's labs were noted, no new chest x-rays. No events overnight. She states she still having the right shoulder discomfort, radiating to her right upper neck area, but her breathing is improving Objective - Vital Signs Vital signs: Vital Signs Temp 97.7 F 08/13/18 11:25 Pulse 80 08/13/18 11:28 Resp 18 08/13/18 11:25 BP 119/75 08/13/18 11:25 Pulse Ox 95 08/13/18 11:25 Intake & Output 08/12/18 08/13/18 08/13/18 18:59 06:59 18:59 Intake Total 500 540 Balance 500 540 Intake: Oral 500 240 Other 300 Other: Voiding Method Toilet Toilet # Voids 1 2 - Exam GENERAL EXAM: Alert, pleasant, 68-year-old white female slightly tachypneic, but in no distress. HEAD: Normocephalic/atraumatic. EYES: Normal reaction of pupils, equal size. Conjunctiva pink, sclera white. NOSE: Clear with pink turbinates. THROAT: No erythema or exudates. NECK: No masses, no JVD, no thyroid enlargement, no adenopathy. CHEST: No chest wall deformity. Symmetrical expansion. LUNGS: Equal air entry with prolongation of expiratory phase, and an expiratory wheezing CVS: Regular rate and rhythm, normal S1 and S2, no gallops, no murmurs, no rubs ABDOMEN: Soft, nontender. No hepatosplenomegaly, normal bowel sounds, no guarding or rigidity. EXTREMITIES: No clubbing, no edema, no cyanosis, 2+ pulses and upper and lower extremities. MUSCULOSKELETAL: Muscle strength and tone normal. SPINE: No scoliosis or deformity SKIN: No rashes CENTRAL NERVOUS SYSTEM: Alert and oriented -3. No focal deficits, tone is normal in all 4 extremities. PSYCHIATRIC: Alert and oriented -3. Appropriate affect. Intact judgment and insight. - Labs CBC & Chem 7: 08/13/18 07:19 08/13/18 07:19 Labs: Abnormal Lab Results - Last 24 Hours (Table) 08/13/18 08/13/18 Range/Units 07:19 07:19 WBC 14.1 H (3.8-10.6) k/uL Neutrophils # 12.0 H (1.3-7.7) k/uL BUN 19 H (7-17) mg/dL Glucose 128 H (74-99) mg/dL AST 59 H (14-36) U/L Assessment and Plan Plan: Assessment: #1. Acute exacerbation of chronic obstructive pulmonary disease. Chest x-rays and CT chest were reviewed, and showed no evidence of active pulmonary disease. D-dimer negative #2. Tingling in bilateral hands and feet present on admission, likely related to hyperventilation related respiratory alkalosis #3. Neck discomfort, x-ray of the cervical neck showed mild disc space narrowing at C5 to C6 #4. Chest pain, negative troponins, EKG with nonspecific T-wave abnormality #5. Hypertension #6. Dyslipidemia #7. Nicotine dependence, currently in remission, quit smoking 15 years ago, carries 34 years of smoking history, of less than a pack a day #8. History of diverticulitis #9. Anxiety/depression #10. Hypothyroidism Plan: From pulmonary perspective patient is stable, she is improving, she can be discharged home today, on prednisone taper, Symbicort, and albuterol, follow-up with Dr. Lopez in the office in 7-10 days. I performed a history & physical examination of the patient and discussed their management with my nurse practitioner, Kenna Addison. I reviewed the nurse practitioner's note and agree with the documented findings and plan of care. Lung sounds are positive for end expiratory wheezes, diminished breath sounds. The findings and the impression was discussed with the patient. I attest to the documentation by the nurse practitioner. Time with Patient: Less than 30
--- NOTE | 2018-08-13 13:59 | XR ---
EXAMINATION TYPE: XR shoulder complete RT DATE OF EXAM: 08/13/2018 CLINICAL HISTORY: Right shoulder pain into elbow. TECHNIQUE: Three views of the right shoulder are obtained. COMPARISON: None. FINDINGS: There is no acute fracture/dislocation evident in the right shoulder. There is mild to mod erate narrowing and mild spurring at acromioclavicular joint. Distal acromion morphology is unremarka ble. Glenohumeral joint is maintained. The visualized ribs are intact and unremarkable. IMPRESSION: As above.
--- NOTE | 2018-08-13 15:50 | P.PN ---
Subjective Progress Note Date: 08/13/18 This is a 68-year-old female patient of Dr. Bynum. Patient presented with complaints of tingling in bilateral hands and feet for 2 weeks. Patient also complaining of shortness of breath and chest pain that has been ongoing for the past 2 weeks. Patient did see her primary care doctor possibly 2 days ago and chest CT was completed that was reported as normal. She does have a past medical history for skin cancer, COPD, GERD, Martinez's palsy, diverticulitis, memory loss, patient is currently being worked up for Parkinson's and depression. Patient denies any significant cardiac history. Patient denies any nicotine depence. Patient denies any significant family history of cardiac history. Patient denies any recent trauma or fall. Chest x-ray completed showing no acute cardiopulmonary process. Radiographic sequel of COPD. EKG completed showing normal sinus rhythm. Nonspecific T-wave abnormality. Abnormal EKG. At this time cardiology services have been consulted. Will order cervical neck chest x-ray to rule out any abnormality contributing to symptoms. D-dimer within normal limits at 0.40. Troponin negative. At this time patient is still complaining of intermittent CVA symptoms including shortness of breath and chest pain. Patient denies any recent illness. Patient denies nausea vomiting or diarrhea. Patient denies any urinary burning or frequency. on 08/12/2018 patient is alert and oriented 3. Upon arrival to room patient resting comfortably in bed without any tachypnea or respiratory distress noted. Upon wakening patient had increased forced breathing. Patient has been cleared by cardiology services. Pulmonary services recommending IV steroids for 24 hours. at this time patient is still complaining when she wakes having shortness of breath. Patient remains SpO2 greater than 96 on room air. Patient denies chest pain. Patient denies nausea vomiting or diarrhea. Patient denies any urinary burning or frequency. On 08/13/2018 patient is alert and oriented 3. Patient is still upset that she is having right shoulder pain. Patient has been cleared from cardiology and pulmonary services. Will order right shoulder x-ray and consult orthopedics services for further evaluation. At this time patient states shortness of breath is significantly improved. Patient denies chest pain. Patient denies nausea vomiting or diarrhea. Patient denies any urinary burning or frequency Objective - Vital Signs Vital signs: Vital Signs Temp 98.5 F 08/13/18 15:38 Pulse 103 H 08/13/18 15:38 Resp 18 08/13/18 15:38 BP 124/80 08/13/18 15:38 Pulse Ox 93 L 08/13/18 15:38 Intake & Output 08/12/18 08/13/18 08/13/18 18:59 06:59 18:59 Intake Total 500 540 Balance 500 540 Intake: Oral 500 240 Other 300 Other: Voiding Method Toilet Toilet Toilet # Voids 1 2 - Exam Head normocephalic Neck supple Lungs clear to auscultation bilaterally no wheezing or crackles Heart regular rate and rhythm S1-S2, no rub or gallop Abdomen is soft nontender nondistended positive bowel sounds no hepatosplenomegaly Extremities no edema Neuro alert and orientated to 3 - Labs CBC & Chem 7: 08/13/18 07:19 08/13/18 07:19 Labs: Abnormal Lab Results - Last 24 Hours (Table) 08/13/18 08/13/18 Range/Units 07:19 07:19 WBC 14.1 H (3.8-10.6) k/uL Neutrophils # 12.0 H (1.3-7.7) k/uL BUN 19 H (7-17) mg/dL Glucose 128 H (74-99) mg/dL AST 59 H (14-36) U/L Assessment and Plan Assessment: 1. Chest pain with shortness of breath. Patient recently underwent outpatient chest CT showing no significantly abnormality to account for patient's symptoms. D-dimer 0.40. Troponin negative. Chest x-ray completed showing no acute cardiopulmonary process. Radiographic sequela of COPD. EKG completed showing normal sinus rhythm. Nonspecific T-wave abnormality. Abnormal EKG. troponins negative. per cardiology services acute coronary event has been ruled out. 2-D echo has been ordered patient to follow-up with cardiology services outpatient for outpatient stress testing in 2 weeks. For pulmonary patient started on IV Solu-Medrol. 2. Tingling and pain to right arm. US axilla of right arm completed no sonographic correlate to the patient's stated palpable abnormality. x-ray cervical spine completed showing mild disc space narrowing at C5 to C6 level. Patient to follow-up outpatient with primary care provider for further evaluation. Initial x-ray ordered. Orthopedic services have been consulted 3. History of diverticulitis 4. History of Martinez's palsy. 5. History of depression. 6. History of hypothyroidism. Synthroid resumed GI prophylaxis Pepcid. DVT prophylaxis Lovenox I performed an examination of the patient and discussed their management with the Nurse Practitioner. I have reviewed the Nurse Practitioner's notes and agree with the documented findings and plan of care
--- NOTE | 2018-08-13 17:28 | P.CNOR ---
History of Present Illness - [facility] Consult date: 08/13/18 Requesting physician: Jaylyn Llamas Consult reason: neck pain, other (Right upper extremity pain) History of present illness: Patient is a pleasant 68-year-old female who is seen and examined at the bedside for further evaluation for cervical pain and right upper extremity pain. She originally presented to the emergency department for further treatment evaluation due to tingling in bilateral hands and feet, right upper extremity pain, and increased shortness of breath. She states she sustained a fall approximately 3 months ago and feels her symptoms have been worsening since that time. She did have some evaluation with her primary care provider without significant improvement of her symptoms. She states her pain initially started with pain wrapping around the right bicep. She described the pain as a aching pain that would not improve. She now has acsending pain in the right shoulder, the right trapezius, and radiating up the right side of the neck towards the base of the skull. Her pain does improve with elevating her right arm above her head. She denies any left upper extremity radiculopathy. She states she is also been experiencing numbness and tingling in the bilateral hands and feet. She continues to do seen by pulmonology who feels the numbness and tingling symptoms may be stemming hyperventilation related to respiratory alkalosis. Pulmonology has diagnosed her with an acute exacerbation of COPD. She does admit to anxiety and depression and follows with her psychologist. She states she takes Klonopin, Effexor, and Wellbutrin in the outpatient setting for control of her symptoms. Since her admittance to the hospital she has been receiving Solu-Medrol 60 mg IV every 6 hours as prescribed by pulmonology. Past Medical History Past Medical History: Cancer, COPD, GERD/Reflux Additional Past Medical History / Comment(s): 08-11-17 pt wants both the flu and pne vaccine while here. hx [place] Palsy affected lt side of face, diverticulosis, being worked up for parkinson's, tremors, past falls,left eye lid basal cell cancer-removed,past [id number], migraines-in past took depakote for them,"cluster headaches. History of Any Multi-Drug Resistant Organisms: None Reported Additional Past Surgical History / Comment(s): left lower eyelid surgery (basal cell ca removed), left fallopian tube and ovary removed. BILAT WRIST SX, COLONOSCOPY, BILAT CATARACTS Past Anesthesia/Blood Transfusion Reactions: Previous Problems w/ Anesthesia Additional Past Anesthesia/Blood Transfusion Reaction / Comm: difficulty waking up after sx, clausterphobia. never had any blood transfusions. Smoking Status: Former smoker - Past Family History Father Additional Family Medical History / Comment(s): PARKINSONS. uncle also had. Mother Additional Family Medical History / Comment(s): . hx of lupus Medications and Allergies Home Medications Medication Instructions Recorded Confirmed Type Lansoprazole [Prevacid] 30 mg PO DAILY 12/12/15 08/11/18 History Levothyroxine Sodium [Synthroid] 25 mcg PO DAILY 12/12/15 08/11/18 History Multivitamins, Thera [Multivitamin 1 tab PO DAILY 12/12/15 08/11/18 History (formulary)] buPROPion XL [Wellbutrin XL] 150 mg PO DAILY 03/25/18 08/11/18 History Budesonide-Formot 160-4.5 Mcg 2 puff INHALATION RT-BID 04/17/18 08/11/18 History [Symbicort 160-4.5 Mcg Inhaler] Venlafaxine HCl ER [Effexor Xr] 300 mg PO DAILY 04/17/18 08/11/18 History lamoTRIgine [LaMICtal] 50 mg PO BID 04/17/18 08/11/18 History Docusate [Colace] 100 mg PO DAILY 04/30/18 08/11/18 History clonazePAM [KlonoPIN] 0.5 mg PO BID@0800,1200 04/30/18 08/11/18 History Cholecalciferol [Vitamin D3] 5,000 unit PO DAILY 08/11/18 08/11/18 History Vit C/Ascorb Sod/Multivit-Min 1,000 mg PO DAILY 08/11/18 08/11/18 History [Emergen-C 500 mg Chewable Tab] clonazePAM [KlonoPIN] 0.75 mg PO HS 08/11/18 08/11/18 History Allergies Allergy/AdvReac Type Severity Reaction Status Date / Time levofloxacin [From Levaquin] AdvReac Hallucinati Verified 08/11/18 13:37 ons metronidazole [From Flagyl] AdvReac Hallucinati Verified 08/11/18 13:37 ons naproxen [From Naprosyn] Juan Hallucinati Verified 08/11/18 13:37 ons Physical Examination Physical exam: Patient is awake, alert, and oriented 3 Vital signs stable Good chest excursion with deep inspiration and expiration Abdomen soft nontender Examination of the cervical spine reveals skin is intact with no abrasions, lacerations, or bruises; no erythema, purulence or signs of infection Tender to palpation over the posterior cervical spine, right trapezius, right acromioclavicular joint, and over the right shoulder in general Full range of motion of the cervical spine with adequate flexion, extension, and bilateral rotation Her strength in the upper extremity is 4-/5 including molding press operator strength Thumb strength, interosseous strength, biceps strength, triceps strength, and shoulder strength positive sustained bilaterally Upper extremity strength 5/5 bilaterally including biceps, triceps, and deltoids Pain with resistance against abduction of the shoulder No upper extremity hyperreflexia bilaterally Hoffmans sign negative upper extremity bilaterally Results Pertinent studies: X-rays of the cervical spine: C5-6 degenerative disc disease; overall alignment appears be adequately maintained; no evidence of vertebral body compression fracture X-rays of the right shoulder: No evidence of acute fracture dislocation evident within the right shoulder mild to moderate narrowing and spurring at the acromioclavicular joint; glenohumeral joint is maintained - Labs Labs: Abnormal Lab Results - Last 24 Hours (Table) 08/13/18 08/13/18 Range/Units 07:19 07:19 WBC 14.1 H (3.8-10.6) k/uL Neutrophils # 12.0 H (1.3-7.7) k/uL BUN 19 H (7-17) mg/dL Glucose 128 H (74-99) mg/dL AST 59 H (14-36) U/L H & H 08/11/18 08/12/18 08/13/18 Range/Units 12:24 06:20 07:19 Hgb 14.1 12.4 14.0 (11.4-16.0) gm/dL Hct 41.4 38.1 43.4 (34.0-46.0) % Coagulation 08/11/18 Range/Units 12:24 INR 0.9 (<1.2) Result Diagrams: 08/13/18 07:19 08/13/18 07:19 Assessment and Plan Assessment: Plan: Cervical pain Right upper extremity pain C5-6 degenerative disc disease Upper extremity weakness Acute exacerbation of COPD History of anxiety History of depression History of previous fall 3 months ago (1) Right arm pain Current Visit: Yes Status: Acute Code(s): M79.601 - PAIN IN RIGHT ARM SNOMED Code(s): 375973732 (2) Cervical pain Current Visit: Yes Status: Acute Code(s): M54.2 - CERVICALGIA SNOMED Code( s): 99429041 (3) Degenerative cervical disc Current Visit: Yes Status: Acute Code(s): M50.30 - OTHER CERVICAL DISC DEGENERATION, UNSP CERVICAL REGION SNOMED Code(s): 82102712 (4) Acute exacerbation of chronic obstructive pulmonary disease (COPD) Current Visit: Yes Status: Acute Code(s): J44.1 - CHRONIC OBSTRUCTIVE PULMONARY DISEASE W (ACUTE) EXACERBATION SNOMED Code(s): 981654534 (5) History of anxiety Current Visit: Yes Status: Acute Code(s): Z86.59 - PERSONAL HISTORY OF OTHER MENTAL AND BEHAVIORAL DISORDERS SNOMED Code(s): 361241246 (6) History of depression Current Visit: Yes Status: Acute Code(s): Z86.59 - PERSONAL HISTORY OF OTHER MENTAL AND BEHAVIORAL DISORDERS SNOMED Code(s): 319132327 (7) History of recent fall Current Visit: Yes Status: Acute Code(s): Z91.81 - HISTORY OF FALLING SNOMED Code(s): 111979864 (8) Muscle weakness of upper extremity Current Visit: Yes Status: Acute Code(s): M62.81 - MUSCLE WEAKNESS ( GENERALIZED) SNOMED Code(s): 772889100 Plan: Plan: 1. Patient has been experiencing right upper extremity pain that has continued to worsen over the past 3 months after a previous fall. She states she experiences cervical pain as well. She feels her pain has been radiating up her arm towards the shoulder, trapezius, and right side of the neck. She does feel her symptoms are alleviated with elevating her right arm above her head. X -ray imaging does show evidence of degenerative disc disease at C5-6. It's difficult to determine if her symptoms are specifically stemming from her cervical spine as she does have some symptoms that correlate with her cervical spine but not all of her symptoms seem to correlate well to her cervical spine. Given her ongoing symptoms and worsening symptoms, we will plan to obtain an MRI of the cervical spine for further evaluation. Depending on the MRI results , we may plan have the patient work through physical therapy, pain management, and /or even the possibility of surgical intervention. We will discuss these treatment modalities in greater detail following the completion of and availability of her results of the cervical MRI. Patient does admit to claustrophobia and will be given Valium 5 mg 1-2 tabs prior to her MRI. 2. Medicine, pulmonology, and other care providers we'll continue to follow patient closely for her other medical diagnoses 3. Patient has been discussed in detail with Dr. Lio Levi and he agrees with this plan Time with Patient: Greater than 30 (Including physical examination, chart review , documentation, and orders)
[2018-08-13] MEDS ORDERED: DIAZEPAM 5 MG TAB PO PRN (17:30)
[2018-08-13] MEDS: ACETAMINOPHEN TAB 325 MG TAB PO PRN (20:24)
--- NOTE | 2018-08-13 20:44 | MR ---
EXAMINATION TYPE: MR cervical spine wo con DATE OF EXAM: 08/13/2018 COMPARISON: 04/18/2016 HISTORY: Cervical pain, RUE pain, C5-6 Degen Disc Disease TECHNIQUE: Multiplanar, multisequence images of the cervical spine were acquired. Cervical vertebra have normal alignment. Disc spaces are fairly normal for age. There is slight decre ased signal at C5-6 C6-7 discs. There is slight narrowing at C5-6 disc space. The skull base is intac t. Cervical spinal cord has normal signal pattern. There is no evidence of edema. There is no evidenc e of spinal stenosis. There is minimal posterior disc bulging at C5 6 and C6-7 without impingement on the spinal canal. There is no compression fracture. I see no focal bone destruction. IMPRESSION: Minor degenerative disc changes in the lower cervical spine. No spinal stenosis. Small posterior disc bulge at C5-6 and C6-7. Overall no significant change compared to last exam.
[2018-08-14] MEDS: methylPREDNISolone SOD SUCCI 125 MG/2 ML VIAL IV SCH ×3 (00:57→13:47)
[2018-08-14] MEDS: CALCIUM CARBONATE 500 MG CHEWABLE PO PRN ×2 (04:51→08:47)
[2018-08-14] MEDS: LEVOTHYROXINE 25 MCG TAB PO SCH (05:04)
[2018-08-14] MEDS: IPRATROPIUM-ALBUTEROL 3 ML NEB INHALATION SCH ×2 (07:50→11:20)
[2018-08-14] MEDS: FORMOTEROL FUMARATE 20 MCG/2 ML NEBU INHALATION SCH (07:50)
[2018-08-14] MEDS: BUDESONIDE 0.5 MG/2 ML NEBU INHALATION SCH (07:50)
[2018-08-14 08:30] VITALS: BP 133/76; RESP 18; TEMP 97.4
[2018-08-14] MEDS: clonazePAM 0.5 MG TAB PO SCH ×2 (08:39→13:47)
[2018-08-14] MEDS: LOSARTAN 50 MG TAB PO SCH (08:39)
[2018-08-14] MEDS: ENOXAPARIN 40 MG/0.4 ML SYRINGE SQ SCH (08:39)
[2018-08-14] MEDS: CHOLECALCIFEROL 1,000 UNIT TAB PO SCH (08:39)
[2018-08-14] MEDS: DOCUSATE 100 MG CAP PO SCH (08:40)
[2018-08-14] MEDS: ASCORBIC ACID 500 MG TAB PO SCH (08:40)
[2018-08-14] MEDS: lamoTRIgine 25 MG TAB PO SCH (08:40)
[2018-08-14] MEDS: VENLAFAXINE HCL ER 150 MG CAP PO SCH (08:40)
[2018-08-14] MEDS: ASPIRIN 325 MG TAB PO SCH (08:40)
[2018-08-14] MEDS: buPROPion XL 150 MG TAB.ER.24H PO SCH (08:40)
[2018-08-14] MEDS: PANTOPRAZOLE 40 MG TABLET PO SCH (08:47)
[2018-08-14] MEDS: MULTIVITAMINS, THERA 1 EACH TAB PO SCH (08:47)
[2018-08-14 08:51] LABS: Basophils % (A) 0 %; Eosinophils # (A) 0.1 k/uL (0-0.7); Eosinophils % (A) 0 %; Lymphocytes # (A) 1.2 k/uL (1.0-4.8); Lymphocytes % (A) 8 %; MCHC 32.5 g/dL (31.0-37.0); MCV 92.3 fL (80.0-100.0); Mean Platelet Volume 7.1; Monocytes # (A) 0.6 k/uL (0-1.0); Monocytes % (A) 4 %; Neutrophils # (A) 13.7 k/uL (1.3-7.7); Neutrophils % (A) 87 %; Platelet Count 350 k/uL (150-450); RBC 4.33 m/uL (3.80-5.40); RDW 13.4 % (11.5-15.5); WBC 15.8 k/uL (3.8-10.6)
[2018-08-14 09:06] LABS: Albumin 4.4 g/dL (3.5-5.0); Calcium 10.1 mg/dL (8.4-10.2); Potassium 4.5 mmol/L (3.5-5.1); Total Bilirubin 0.3 mg/dL (0.2-1.3); Total Protein 6.9 g/dL (6.3-8.2)
--- NOTE | 2018-08-14 09:06 | P.CNOR ---
History of Present Illness - [facility] Consult date: 08/14/18 Consult reason: neck pain History of present illness: Patient seen and examined at bedside. She is a pleasant 68-year-old female with history of anxiety issues and has been in the hospital and guards to general malaise as well as chest pain shortness breath neck pain and upper extremity pain on the right side. She says that she is not having pain at her neck right now or in her arm but overall has been having some pain over her right shoulder and into her right arm the past 3 months. She doesn't she did sustain a fall about 3 months ago and had bruising around her right upper arm. She has had improvement since that time but still having some overall soreness. She has been having workup for her other issues including her chest pain. She was having significant concerns about whether the issues in her upper Schmer coming from her neck and she underwent further evaluation and imaging and underwent an MRI last night which we have reviewed. Review of Systems I reviewed the imaging and the note from Ned Barron our physician preschool assistant teacher I am in agreement with that. The patient denies any nausea or vomiting. She denies any recent fevers chills Past Medical History Past Medical History: Cancer, COPD, GERD/Reflux Additional Past Medical History / Comment(s): 08-11-17 pt wants both the flu and pne vaccine while here. hx [place] Palsy affected lt side of face, diverticulosis, being worked up for parkinson's, tremors, past falls,left eye lid basal cell cancer-removed,past [id number], migraines-in past took depakote for them,"cluster headaches. History of Any Multi-Drug Resistant Organisms: None Reported Additional Past Surgical History / Comment(s): left lower eyelid surgery (basal cell ca removed), left fallopian tube and ovary removed. BILAT WRIST SX, COLONOSCOPY, BILAT CATARACTS Past Anesthesia/Blood Transfusion Reactions: Previous Problems w/ Anesthesia Additional Past Anesthesia/Blood Transfusion Reaction / Comm: difficulty waking up after sx, clausterphobia. never had any blood transfusions. Smoking Status: Former smoker - Past Family History Father Additional Family Medical History / Comment(s): PARKINSONS. uncle also had. Mother Additional Family Medical History / Comment(s): . hx of lupus Medications and Allergies Home Medications Medication Instructions Recorded Confirmed Type Lansoprazole [Prevacid] 30 mg PO DAILY 12/12/15 08/11/18 History Levothyroxine Sodium [Synthroid] 25 mcg PO DAILY 12/12/15 08/11/18 History Multivitamins, Thera [Multivitamin 1 tab PO DAILY 12/12/15 08/11/18 History (formulary)] buPROPion XL [Wellbutrin XL] 150 mg PO DAILY 03/25/18 08/11/18 History Budesonide-Formot 160-4.5 Mcg 2 puff INHALATION RT-BID 04/17/18 08/11/18 History [Symbicort 160-4.5 Mcg Inhaler] Venlafaxine HCl ER [Effexor Xr] 300 mg PO DAILY 04/17/18 08/11/18 History lamoTRIgine [LaMICtal] 50 mg PO BID 04/17/18 08/11/18 History Docusate [Colace] 100 mg PO DAILY 04/30/18 08/11/18 History clonazePAM [KlonoPIN] 0.5 mg PO BID@0800,1200 04/30/18 08/11/18 History Cholecalciferol [Vitamin D3] 5,000 unit PO DAILY 08/11/18 08/11/18 History Vit C/Ascorb Sod/Multivit-Min 1,000 mg PO DAILY 08/11/18 08/11/18 History [Emergen-C 500 mg Chewable Tab] clonazePAM [KlonoPIN] 0.75 mg PO HS 08/11/18 08/11/18 History Allergies Allergy/AdvReac Type Severity Reaction Status Date / Time levofloxacin [From Levaquin] AdvReac Hallucinati Verified 08/11/18 13:37 ons metronidazole [From Flagyl] AdvReac Hallucinati Verified 08/11/18 13:37 ons naproxen [From Naprosyn] AdvReac Hallucinati Verified 08/11/18 13:37 ons Physical Examination Osteopathic Statement: *. No significant issues noted on an osteopathic structural exam other than those noted in the History and Physical/Consult. - C Spine: dermatomal strength & reflexes bilateral Shoulder strength: flexion: 5/5 (Patient has excellent motion at her neck. She is nontender to palpation of the midline. She has some paravertebral spasm of her her right trapezium and toward her right shoulder. She has good motion in her shoulder but has some globalized tenderness over her shoulder and upper extremity and upper arm. She has negative drop arm test is negative impingement signs. 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 Reflexes are normal with no hyperreflexia and clonus negative Zandra's) Results - Labs Labs: H & H 08/11/18 08/12/18 08/13/18 Range/Units 12:24 06:20 07:19 Hgb 14.1 12.4 14.0 (11.4-16.0) gm/dL Hct 41.4 38.1 43.4 (34.0-46.0) % Coagulation 08/11/18 Range/Units 12:24 INR 0.9 (<1.2) Result Diagrams: 08/13/18:08/13/18 07: - Diagnostic results Cervical MRI with/without contrast: report reviewed, image reviewed (Images of her cervical spine including MRI of the cervical spine shows some diffuse mild disc degeneration from C3 to C7. There is mild disc bulging at C45 and C5 6 without any herniation without cervical stenosis. There is no foraminal stenosis. There ischanges in her cord signal. There is no evidence of any instability) Assessment and Plan Assessment: Cervical strain Right shoulder strain and spasm Right extremity pain without neurologic deficit Mild cervical degenerative disc disease without stenosis Plan: Cervical strain Right shoulder strain and spasm Right extremity pain without neurologic deficit Mild cervical degenerative disc disease without stenosis In terms patient's cervical issues and upper extremity issues I do not think the symptoms specifically from her cervical spine. She has some mild changes at her cervical spine as would be expected for a patient of her age but she does not have any acute injury stenosis or herniation or instability at her cervical spine to require further intervention. I think that she has strain at her neck and shoulder and could be amenable for outpatient physical therapy for stretching strengthening endurance training for her neck and upper extremity. I discussed this with her and her at bedside and they seem to understand. I do not plan any interventional pain management or surgical intervention for cervical spine and she can follow-up on an as-needed basis is okay for her to be discharged home from a orthopedic spine standpoint.
[2018-08-14 11:31] VITALS: PULSE 68
--- NOTE | 2018-08-14 14:38 | P.DS ---
Providers Date of admission: 08/11/18 15:06 Expected date of discharge: 08/14/18 Attending physician: Gonsalo Evans Consults: 08/11/18 15:06 Consult Physician Urgent Consulting Provider: Lanre Davis Consult Reason/Comments: cp Do you want consulting provider notified?: Yes 08/11/18 16:27 Consult Physician Routine Consulting Provider: Gregory Lopez Consult Reason/Comments: increased shortness of breath Do you want consulting provider notified?: Yes 08/13/18 13:16 Consult Physician Routine Consulting Provider: Chan Levi Consult Reason/Comments: increased neck pain, right arm pain Do you want consulting provider notified?: Yes Primary care physician: Diamante Bynum Hospital Course: Discharge diagnosis 1. Chest pain with shortness of breath. Patient recently underwent outpatient chest CT showing no significantly abnormality to account for patient's symptoms. D-dimer 0.40. Troponin negative. Chest x-ray completed showing no acute cardiopulmonary process. Radiographic sequela of COPD. EKG completed showing normal sinus rhythm. Nonspecific T-wave abnormality. Abnormal EKG. troponins negative. per cardiology services acute coronary event has been ruled out. 2-D echo has been ordered patient to follow-up with cardiology services outpatient for outpatient stress testing in 2 weeks. For pulmonary patient started on IV Solu-Medrol. Patient has been cleared for discharge from pulmonary standpoint will be DC'd on prednisone taper 2. Tingling and pain to right arm. US axilla of right arm completed no sonographic correlate to the patient's stated palpable abnormality. x-ray cervical spine completed showing mild disc space narrowing at C5 to C6 level. Patient to follow-up outpatient with primary care provider for further evaluation. MRI of the cervical spine completed showing minor degenerative disc changes in the lower cervical spine. No spinal stenosis. Small posterior disc bulge at C5 to C6 and C6 to 7. Overall no significant change compared to last exam. Per orthopedic services patient may have a strain in her neck and shoulder be treated with outpatient physical therapy for stretching strengthening and endurance for her neck and upper extremity. No surgical intervention required at this time. Patient has been cleared for discharge from orthopedic standpoint 3. History of diverticulitis 4. History of Martinez's palsy. 5. History of depression. 6. History of hypothyroidism. Synthroid resumed 7. Elevated liver enzyme. AST mildly elevated at 97. Acetaminophen DC'd. Will repeat CMP outpatient in 4 days and patient to follow-up with her PCP Hospital course This is a 68-year-old female patient of Dr. Bynum. Patient presented with complaints of tingling in bilateral hands and feet for 2 weeks. Patient also complaining of shortness of breath and chest pain that has been ongoing for the past 2 weeks. Patient did see her primary care doctor possibly 2 days ago and chest CT was completed that was reported as normal. She does have a past medical history for skin cancer, COPD, GERD, Martinez's palsy, diverticulitis, memory loss, patient is currently being worked up for Parkinson's and depression. Patient denies any significant cardiac history. Patient denies any nicotine depence. Patient denies any significant family history of cardiac history. Patient denies any recent trauma or fall. Chest x-ray completed showing no acute cardiopulmonary process. Radiographic sequel of COPD. EKG completed showing normal sinus rhythm. Nonspecific T-wave abnormality. Abnormal EKG. At this time cardiology services have been consulted. Will order cervical neck chest x-ray to rule out any abnormality contributing to symptoms. D-dimer within normal limits at 0.40. Troponin negative. At this time patient is still complaining of intermittent CVA symptoms including shortness of breath and chest pain. Patient denies any recent illness. Patient denies nausea vomiting or diarrhea. Patient denies any urinary burning or frequency. on 08/12/2018 patient is alert and oriented 3. Upon arrival to room patient resting comfortably in bed without any tachypnea or respiratory distress noted. Upon wakening patient had increased forced breathing. Patient has been cleared by cardiology services. Pulmonary services recommending IV steroids for 24 hours. at this time patient is still complaining when she wakes having shortness of breath. Patient remains SpO2 greater than 96 on room air. Patient denies chest pain. Patient denies nausea vomiting or diarrhea. Patient denies any urinary burning or frequency. On 08/13/2018 patient is alert and oriented 3. Patient is still upset that she is having right shoulder pain. Patient has been cleared from cardiology and pulmonary services. Will order right shoulder x-ray and consult orthopedics services for further evaluation. At this time patient states shortness of breath is significantly improved. Patient denies chest pain. Patient denies nausea vomiting or diarrhea. Patient denies any urinary burning or frequency On 08/14/2018 patient's alert and oriented times 3. Patient has been cleared for discharge from cardiology services, pulmonary and orthopedic services. Patient states she feels ready to go home. Patient to follow-up with cardiology service for outpatient stress test in 2 weeks. Patient also to follow up with pulmonary and primary care provider for further follow-up. At this time patient denies chest pain or shortness breath. Patient denies nausea vomiting or diarrhea. Patient denies any urinary frequency CMP repeated 4 days to follow-up with elevated AST. I performed an examination of the patient and discussed their management with the Nurse Practitioner. I have reviewed the Nurse Practitioner's notes and agree with the documented findings and plan of care Patient Condition at Discharge: Stable Plan - Discharge Summary Discharge Rx Participant: No New Discharge Prescriptions: New Losartan [Cozaar] 50 mg PO DAILY #30 tab predniSONE 10 mg PO DIRECTED #30 tab Continue Vit C/Ascorb Sod/Multivit-Min [Emergen-C 500 mg Chewable Tab] 1,000 mg PO DAILY Cholecalciferol [Vitamin D3] 5,000 unit PO DAILY clonazePAM [KlonoPIN] 0.75 mg PO HS No Action Multivitamins, Thera [Multivitamin (formulary)] 1 tab PO DAILY Levothyroxine Sodium [Synthroid] 25 mcg PO DAILY Lansoprazole [Prevacid] 30 mg PO DAILY buPROPion XL [Wellbutrin XL] 150 mg PO DAILY lamoTRIgine [LaMICtal] 50 mg PO BID Budesonide-Formot 160-4.5 Mcg [Symbicort 160-4.5 Mcg Inhaler] 2 puff INHALATION RT-BID Venlafaxine HCl ER [Effexor XR] 300 mg PO DAILY Docusate [Colace] 100 mg PO DAILY clonazePAM [KlonoPIN] 0.5 mg PO BID@0800,1200 Discharge Medication List Lansoprazole [Prevacid] 30 mg PO DAILY 12/12/15 [History] Levothyroxine Sodium [Synthroid] 25 mcg PO DAILY 12/12/15 [History] Multivitamins, Thera [Multivitamin (formulary)] 1 tab PO DAILY 12/12/15 [History ] buPROPion XL [Wellbutrin XL] 150 mg PO DAILY 03/25/18 [History] Budesonide-Formot 160-4.5 Mcg [Symbicort 160-4.5 Mcg Inhaler] 2 puff INHALATION RT-BID 04/17/18 [History] Venlafaxine HCl ER [Effexor XR] 300 mg PO DAILY 04/17/18 [History] lamoTRIgine [LaMICtal] 50 mg PO BID 04/17/18 [History] Docusate [Colace] 100 mg PO DAILY 04/30/18 [History] clonazePAM [KlonoPIN] 0.5 mg PO BID@0800,1200 04/30/18 [History] Cholecalciferol [Vitamin D3] 5,000 unit PO DAILY 08/11/18 [History] Vit C/Ascorb Sod/Multivit-Min [Emergen-C 500 mg Chewable Tab] 1,000 mg PO DAILY 08/11/18 [History] clonazePAM [KlonoPIN] 0.75 mg PO HS 08/11/18 [History] Losartan [Cozaar] 50 mg PO DAILY #30 tab 08/14/18 [Rx] predniSONE 10 mg PO DIRECTED #30 tab 08/14/18 [Rx] Follow up Appointment(s)/Referral(s): Jelani Caro MD [STAFF PHYSICIAN] - 2 Weeks (Office will call you to schedule an appointment with Dr. LUCRETIA Caro) Diamante Bynum MD [Primary Care Provider] - 1-2 days Gregory Lopez DO [Doctor of Osteopathic Medicine] - 1 Week Ambulatory/Diagnostic Orders: Comprehensive Metabolic Panel [LAB.AMB] Time Frame: 4 Days, Location: None Selected
== END 2018-08-14 15:24 | disposition home or self-care (01) ==
LOC: EC 11:39 → 1SOBS 15:06
PROVIDERS: ADMIT Internal Medicine; ATTEND Internal Medicine
DX: R07.89 Other chest pain (principal); R06.02 Shortness of breath; R94.31 Abnormal electrocardiogram [ECG] [EKG]; R20.2 Paresthesia of skin; M79.601 Pain in right arm; G51.0 Bell's palsy; R41.3 Other amnesia; F32.9 Major depressive disorder, single episode, unspecified; F41.9 Anxiety disorder, unspecified; E03.9 Hypothyroidism, unspecified; R74.8 Abnormal levels of other serum enzymes; R74.0 Nonspecific elevation of levels of transaminase and lactic acid dehydrogenase [LDH]; K21.9 Gastro-esophageal reflux disease without esophagitis; J44.1 Chronic obstructive pulmonary disease with (acute) exacerbation; I10 Essential (primary) hypertension; E78.5 Hyperlipidemia, unspecified; E87.3 Alkalosis; M48.02 Spinal stenosis, cervical region; M50.322 Other cervical disc degeneration at C5-C6 level; Z91.81 History of falling; S16.1XXA Strain of muscle, fascia and tendon at neck level, initial encounter; S46.911A Strain of unspecified muscle, fascia and tendon at shoulder and upper arm level, right arm, initial encounter; Z79.890 Hormone replacement therapy; Z79.899 Other long term (current) drug therapy; Z88.1 Allergy status to other antibiotic agents; Z88.8 Allergy status to other drugs, medicaments and biological substances; Z85.828 Personal history of other malignant neoplasm of skin; Z87.440 Personal history of urinary (tract) infections; Z87.19 Personal history of other diseases of the digestive system; Z82.0 Family history of epilepsy and other diseases of the nervous system
CPT/HCPCS: 96372 ×2; 96375; 96376 ×3; 96374; 99285; 36415; 94640 ×7; 93005; 93306; 85379; 83880; 80061; 80053 ×4; 82550 ×2; 82553 ×2; 84484 ×2; 85025 ×4; 85610; 85730; 81003; 72050; 73030; 71046; 72141; G0378 ×4; J2060; J2930 ×3; J1650 ×2

== ENCOUNTER → 2018-10-06 | Outpatient (CLI) | payer MEDICARE ==
--- NOTE | 2018-10-06 09:59 | CT ---
EXAMINATION TYPE: CT sinus wo con DATE OF EXAM: 10/06/2018 COMPARISON: CT sinus 06/21/2017 HISTORY: Chronic sinusitis CT DLP: 608.8 mGycm. Automated Exposure Control for Dose Reduction was Utilized. TECHNIQUE: CT scan of the sinuses is performed without contrast, axial images are obtained, coronal r eformatted images are also reviewed. FINDINGS: The paranasal sinuses including the frontal, ethmoid, sphenoid, and maxillary sinuses bila terally are well-aerated without abnormal opacification. The ostiomeatal complex is patent bilateral ly on the coronal images. Slight deviation of the nasal septum as on prior. Middle turbinate is hypop lastic as on prior. Visualized portion of mastoid air cells show no abnormal opacification. The globes are intact bilate rally. Unerupted molar again noted with extension towards the inferior right maxillary sinus is a sta ble finding. No other significant interval change. IMPRESSION: The sinuses are clear and the ostiomeatal complex is patent bilaterally. Additional find ings above, essentially stable exam.
--- NOTE | 2018-10-06 10:00 | FL ---
Barium swallow HISTORY: Dysphagia, chronic sinusitis 1 minute 11 seconds fluoroscopy time, 13 images obtained Patient was given barium to drink and evaluated under real-time fluoroscopy Swallowing mechanism is normal. There is no evident gastroesophageal reflux. No extrinsic or intrinsi c esophageal lesion. Sliding hiatal hernia was noted incidentally. IMPRESSION: Sliding hiatal hernia.
== END | disposition home or self-care (01) ==
LOC: RADCTMAIN 07:48
PROVIDERS: ATTEND Otolaryngology
DX: K44.9 Diaphragmatic hernia without obstruction or gangrene (principal); J34.2 Deviated nasal septum; Q30.1 Agenesis and underdevelopment of nose; J32.9 Chronic sinusitis, unspecified
CPT/HCPCS: 70486; 74220

== ENCOUNTER 2018-10-17 11:06 | Emergency (ER) | payer MEDICARE ==
[2018-10-17 11:15] VITALS: RESP 18; TEMP 97.6
--- NOTE | 2018-10-17 12:29 | ED ---
Abdominal Pain HPI - General Chief Complaint: Abdominal Pain Stated Complaint: Left flank pain Time Seen by Provider: 10/17/18 11:28 Source: patient, RN notes reviewed, old records reviewed Mode of arrival: wheelchair Limitations: no limitations - History of Present Illness Initial Comments: Dee is a 60-year-old female who presents to return today with left-sided flank pain and lower abdominal pain for the past day. She reports she will comply symptoms. Patient states that she's had no fevers or chills. She denies any nausea or vomiting. She reports she has history of diverticulitis. Patient states that no history of kidney stones. Surgical history includes left oophorectomy.Patient denies any recent fever, chills, shortness of breath, chest pain, back pain, nausea vomiting, numbness or tingling, dysuria or hematuria, constipation or diarrhea, headaches or visual changes, or any other current symptoms - Related Data Home Medications Medication Instructions Recorded Confirmed Levothyroxine Sodium [Synthroid] 25 mcg PO DAILY 12/12/15 10/17/18 Multivitamins, Thera [Multivitamin 1 tab PO DAILY 12/12/15 10/17/18 (formulary)] buPROPion XL [Wellbutrin XL] 450 mg PO DAILY 03/25/18 10/17/18 Venlafaxine HCl ER [Effexor XR] 300 mg PO DAILY 04/17/18 10/17/18 lamoTRIgine [LaMICtal] 50 mg PO BID 04/17/18 10/17/18 Docusate [Colace] 100 mg PO DAILY 04/30/18 10/17/18 clonazePAM [KlonoPIN] 0.5 mg PO BID@0800,1200 04/30/18 10/17/18 Cholecalciferol [Vitamin D3] 5,000 unit PO DAILY 08/11/18 10/17/18 Vit C/Ascorb Sod/Multivit-Min 1,000 mg PO DAILY 08/11/18 10/17/18 [Emergen-C 500 mg Chewable Tab] clonazePAM [KlonoPIN] 0.75 mg PO HS 08/11/18 10/17/18 Previous Rx's Medication Instructions Recorded Losartan [Cozaar] 50 mg PO DAILY #30 tab 08/14/18 Amoxic-Pot Clav 875-125Mg 1 tab PO Q12HR #20 tablet 10/17/18 [Augmentin 875-942] Allergies Allergy/AdvReac Type Severity Reaction Status Date / Time levofloxacin [From Levaquin] AdvReac Hallucinati Verified 10/17/18 11:39 ons metronidazole [From Flagyl] AdvReac Hallucinati Verified 10/17/18 11:39 ons naproxen [From Naprosyn] AdvReac Hallucinati Verified 10/17/18 11:39 ons Review of Systems ROS Statement: Those systems with pertinent positive or pertinent negative responses have been documented in the HPI. ROS Other: All systems not noted in ROS Statement are negative. Past Medical History Past Medical History: Cancer, COPD, GERD/Reflux Additional Past Medical History / Comment(s): 08-11-17 pt wants both the flu and pne vaccine while here. hx [place] Palsy affected lt side of face, di verticulosis, being worked up for parkinson's, tremors, past falls,left eye lid basal cell cancer-removed,past [id number], migraines-in past took depakote for them,"cluster headaches. History of Any Multi-Drug Resistant Organisms: None Reported Additional Past Surgical History / Comment(s): left lower eyelid surgery (basal cell ca removed), left fallopian tube and ovary removed. BILAT WRIST SX, COLONOSCOPY, BILAT CATARACTS Past Anesthesia/Blood Transfusion Reactions: Previous Problems w/ Anesthesia Additional Past Anesthesia/Blood Transfusion Reaction / Comment(s): difficulty waking up after sx, clausterphobia. never had any blood transfusions. Past Psychological History: Depression Smoking Status: Former smoker Past Alcohol Use History: None Reported Past Drug Use History: None Reported - Past Family History Father Additional Family Medical History / Comment(s): PARKINSONS. uncle also had. Mother Additional Family Medical History / Comment(s): . hx of lupus General Exam - General Exam Comments Initial Comments: 68-year-old female. Alert and oriented. No distress. General: Well appearing, well nourished, in no distress. Oriented x 3, normal mood and affect . Ambulating without difficulty. Skin: Good turgor, no rash, unusual bruising or prominent lesions Hair: Normal texture and distribution. HEENT: Head: Normocephalic, atraumatic, no visible or palpable masses, depressions, or scaring. Eyes: Visual acuity intact, conjunctiva clear, sclera non-icteric, EOM intact, PERRL. Ears: EACs clear, TMs translucent & cone of light visualized. hearing intact. Nose: No external lesions, mucosa non-inflamed, septum and turbinates normal Mouth: Mucous membranes moist, no mucosal lesions. Teeth/Gums: No obvious caries or periodontal disease. No gingival inflammation or significant resorption. Pharynx: Mucosa non-inflamed, no tonsillar hypertrophy or exudate Neck: Supple, without lesions, bruits, or adenopathy, thyroid non-enlarged and non-tender Heart: No cardiomegaly or thrills; regular rate and rhythm, no murmur or gallop Lungs: Clear to auscultation and percussion Abdomen: Bowel sounds normal, left lower quadrant tenderness. No guarding Burning or rebound Back: Spine normal without deformity or tenderness, no CVA tenderness Extremities: No amputations or deformities, cyanosis, edema or varicosities, peripheral pulses intact Musculoskeletal: Normal gait and station. No misalignment, asymmetry, crepitation, defects, tenderness, masses, effusions, decreased range of motion, instability, atrophy or abnormal strength or tone in the head, neck, spine, ribs, pelvis or extremities. Neurologic: CN 2-12 normal. Sensation to pain, touch, and proprioception normal. DTRs normal in upper and lower extremities. No pathologic reflexes. Psychiatric: Oriented X3, intact recent and remote memory, judgment and insight, normal mood and affect. Limitations: no limitations Course Vital Signs 10/17/18 10/17/18 11:13 13:52 Temperature 97.6 F Pulse Rate 102 H 87 Respiratory 18 18 Rate Blood Pressure 125/67 112/60 O2 Sat by Pulse 98 93 L Oximetry Medical Decision Making - Medical Decision Making Patient is a 60-year-old female presents today with complaints of LLQ pain for one day. Signs are stable. Patient has some left lower quadrant guarding and tenderness. Computed tomography scan was completed and shows evidence of acute diverticulitis. No abscess or perforation. Patient's ALLERGY to Levaquin and Flagyl we'll treat the Patient with Augmentin for acute diverticulitis. Discussed signs of diet changes. Patient will be following up with her PCP. All questions were answered and return parameters were discussed. - Lab Data Result diagrams: 10/17/18 12:45 10/17/18 12:45 Lab Results 10/17/18 10/17/18 10/17/18 Range/Units 12:45 12:45 12:45 WBC 15.8 H (3.8-10.6) k/uL RBC 4.75 (3.80-5.40) m/uL Hgb 13.8 (11.4-16.0) gm/dL Hct 43.5 (34.0-46.0) % MCV 91.5 (80.0-100.0) fL MCH 29.0 (25.0-35.0) pg MCHC 31.7 (31.0-37.0) g/dL RDW 12.9 (11.5-15.5) % Plt Count 355 (150-450) k/uL Neutrophils % 86 % Lymphocytes % 8 % Monocytes % 5 % Eosinophils % 0 % Basophils % 0 % Neutrophils # 13.6 H (1.3-7.7) k/uL Lymphocytes # 1.2 (1.0-4.8) k/uL Monocytes # 0.7 (0-1.0) k/uL Eosinophils # 0.1 (0-0.7) k/uL Basophils # 0.1 (0-0.2) k/uL PT 9.7 (9.0-12.0) sec INR 0.9 (<1.2) APTT 23.2 (22.0-30.0) sec Sodium 139 (137-145) mmol/L Potassium 4.7 (3.5-5.1) mmol/L Chloride 103 (98-107) mmol/L Carbon Dioxide 28 (22-30) mmol/L Anion Gap 8 mmol/L BUN 19 H (7-17) mg/dL Creatinine 1.03 (0.52-1.04) mg/dL Est GFR (CKD-EPI)AfAm 65 (>60 ml/min/1.73 sqM) Est GFR (CKD-EPI)NonAf 56 (>60 ml/min/1.73 sqM) Glucose 82 (74-99) mg/dL Calcium 9.8 (8.4-10.2) mg/dL Total Bilirubin 0.6 (0.2-1.3) mg/dL AST 65 H (14-36) U/L ALT 38 (9-52) U/L Alkaline Phosphatase 68 (38-126) U/L Total Protein 7.1 (6.3-8.2) g/dL Albumin 4.4 (3.5-5.0) g/dL Amylase 70 (30-110) U/L Lipase 121 (23-300) U/L Urine Color Urine Appearance (Clear) Urine pH (5.0-8.0) Ur Specific [place] (1.001-1.035) Urine Protein (Negative) Urine Glucose (UA) (Negative) Urine Ketones (Negative) Urine Blood (Negative) Urine Nitrite (Negative) Urine Bilirubin (Negative) Urine Urobilinogen (<2.0) mg/dL Ur Leukocyte Esterase (Negative) Urine RBC (0-5) /hpf Urine WBC (0-5) /hpf Ur Squamous Epith Cells (0-4) /hpf Hyaline Casts (0-2) /lpf Urine Mucus (None) /hpf 10/17/ Range/Units 12:45 WBC (3.8-10.6) k/uL RBC (3.80-5.40) m/uL Hgb (11.4-16.0) gm/dL Hct (34.0-46.0) % MCV (80.0-100.0) fL MCH (25.0-35.0) pg MCHC (31.0-37.0) g/dL RDW (11.5-15.5) % Plt Count (150-450) k/uL Neutrophils % % Lymphocytes % % Monocytes % % Eosinophils % % Basophils % % Neutrophils # (1.3-7.7) k/uL Lymphocytes # (1.0-4.8) k/uL Monocytes # (0-1.0) k/uL Eosinophils # (0-0.7) k/uL Basophils # (0-0.2) k/uL PT (9.0-12.0) sec INR (<1.2) APTT (22.0-30.0) sec Sodium (137-145) mmol/L Potassium (3.5-5.1) mmol/L Chloride (98-107) mmol/L Carbon Dioxide (22-30) mmol/L Anion Gap mmol/L BUN (7-17) mg/dL Creatinine (0.52-1.04) mg/dL Est GFR (CKD-EPI)AfAm (>60 ml/min/1.73 sqM) Est GFR (CKD-EPI)NonAf (>60 ml/min/1.73 sqM) Glucose (74-99) mg/dL Calcium (8.4-10.2) mg/dL Total Bilirubin (0.2-1.3) mg/dL AST (14-36) U/L ALT (9-52) U/L Alkaline Phosphatase (38-126) U/L Total Protein (6.3-8.2) g/dL Albumin (3.5-5.0) g/dL Amylase (30-110) U/L Lipase (23-300) U/L Urine Color Yellow Urine Appearance Clear (Clear) Urine pH 6.5 (5.0-8.0) Ur Specific [place] 1.008 (1.001-1.035) Urine Protein Trace H (Negative) Urine Glucose (UA) Negative (Negative) Urine Ketones Negative (Negative) Urine Blood Negative (Negative) Urine Nitrite Negative (Negative) Urine Bilirubin Negative (Negative) Urine Urobilinogen <2.0 (<2.0) mg/dL Ur Leukocyte Esterase Trace H (Negative) Urine RBC <1 (0-5) /hpf Urine WBC 2 (0-5) /hpf Ur Squamous Epith Cells 1 (0-4) /hpf Hyaline Casts 1 (0-2) /lpf Urine Mucus Rare H (None) /hpf - Radiology Data Radiology results: report reviewed Application in colonic and sigmoid junction diverticulitis no pneumoperitoneum and no abscess. Disposition Clinical Impression: Acute diverticulitis Disposition: HOME SELF-CARE Condition: Good Instructions (If sedation given, give patient instructions): Diverticulitis (ED), Diverticulitis Diet (ED) Additional Instructions: Patient advised to follow-up with her primary care physician. Patient should return to emergency department if any alarming signs or symptoms occur. Avoid any foods with nuts and seeds. Patient should take the medication as prescribed and see her PCP if there is any fevers worsening pain return to the emergency department. Prescriptions: Amoxic-Pot Clav 875-125Mg [Augmentin 875-125] 1 tab PO Q12HR #20 tablet Is patient prescribed a controlled substance at d/c from ED?: No Referrals: Diamante Bynum MD [Primary Care Provider] - 1-2 days Time of Disposition: 15:08
[2018-10-17] MEDS: ONDANSETRON 4 MG/2 ML VIAL IVP STA (13:08)
[2018-10-17] MEDS: SODIUM CHLORIDE 0.9% 1,000 ML IV STA ×2 (13:08→14:30)
[2018-10-17 13:09] LABS: Basophils # (A) 0.1 k/uL (0-0.2); Basophils % (A) 0 %; Eosinophils # (A) 0.1 k/uL (0-0.7); Eosinophils % (A) 0 %; HCT 43.5 % (34.0-46.0); HGB 13.8 gm/dL (11.4-16.0); Lymphocytes # (A) 1.2 k/uL (1.0-4.8); Lymphocytes % (A) 8 %; MCHC 31.7 g/dL (31.0-37.0); MCV 91.5 fL (80.0-100.0); Mean Platelet Volume 6.6; Monocytes # (A) 0.7 k/uL (0-1.0); Monocytes % (A) 5 %; Neutrophils # (A) 13.6 k/uL (1.3-7.7); Neutrophils % (A) 86 %; Platelet Count 355 k/uL (150-450); RBC 4.75 m/uL (3.80-5.40); RDW 12.9 % (11.5-15.5); WBC 15.8 k/uL (3.8-10.6)
[2018-10-17] MEDS: KETOROLAC 30 MG/ML 1 ML VIAL IVP STA (13:11)
[2018-10-17 13:13] LABS: INR 0.9 (<1.2); Partial Thromboplastin Time 23.2 sec (22.0-30.0); Prothrombin Time 9.7 sec (9.0-12.0)
[2018-10-17] MEDS: MORPHINE SULFATE 4 MG/ML SYRINGE IV STA (13:13)
[2018-10-17] MEDS: PANTOPRAZOLE 40 MG/10 ML VIAL IVP STA (13:16)
[2018-10-17 13:20] LABS: Albumin 4.4 g/dL (3.5-5.0); Calcium 9.8 mg/dL (8.4-10.2); Potassium 4.7 mmol/L (3.5-5.1); Total Bilirubin 0.6 mg/dL (0.2-1.3); Total Protein 7.1 g/dL (6.3-8.2)
[2018-10-17 13:24] LABS: Appearance,Urine Clear (Clear); Bilirubin,Urine Negative (Negative); Blood,Urine Negative (Negative); Color,Urine Yellow; Glucose,Urine (UA) Negative (Negative); Hyaline Casts,Urine 1 /lpf (0-2); Ketones,Urine Negative (Negative); Leukocyte Esterase,Urine Trace (Negative); Mucus,Urine Rare /hpf; Nitrite,Urine Negative (Negative); PH, Urine 6.5 (5.0-8.0); Protein,Urine Trace (Negative); RBC,Urine <1 /hpf (0-5); Specific Gravity,Urine 1.008 (1.001-1.035); Squamous Epithelial Cell,Urine 1 /hpf (0-4); Urobilinogen,Urine <2.0 mg/dL (<2.0); WBC,Urine 2 /hpf (0-5)
[2018-10-17 13:53] VITALS: BP 112/60; PULSE 87
--- NOTE | 2018-10-17 14:41 | CT ---
EXAMINATION TYPE: CT abdomen pelvis w con DATE OF EXAM: 10/17/2018 HISTORY: Left lower quadrant abdominal pain. History of left oophorectomy and endometriosis. CT DLP: 876.6mGycm Automated Exposure Control for Dose Reduction was Utilized. CONTRAST: CT scan of the abdomen and pelvis is performed with IV Contrast, patient injected with 80 mL of Isovu e 300. COMPARISON: 12/09/2015 FINDINGS: LUNG BASES: No significant abnormality is appreciated. LIVER/GB: No significant abnormality is appreciated. The gallbladder is elongated measuring 8.2 cm ho wever no right upper quadrant fat stranding change is seen. PANCREAS: No significant abnormality is seen. SPLEEN: No significant abnormality is seen. ADRENALS: No significant abnormality is seen. KIDNEYS: No significant abnormality is seen. BOWEL: Focal inflammatory fat stranding is seen surrounding the descending colonic and proximal sigmo id diverticula within a short segment. There is adjacent fascial plane thickening representing acute diverticulitis. Mild colonic wall thickening is also seen at this level. No pericolonic abscess is id entified. No pneumoperitoneum. Moderate amount retained colonic stool is seen throughout the colon. A ppendix is air-filled. No dilated large or small bowel to suggest reactive ileus or obstruction. LYMPH NODES: No greater than 1cm abdominal or pelvic lymph nodes are appreciated. OSSEOUS STRUCTURES: Multilevel degenerative disc disease of the spine is pronounced of the lower lumb ar spine. Again there is a levoscoliosis of the lumbar spine.. IMPRESSION: Acute uncomplicated descending colonic and sigmoid junction diverticulitis. No pneumoperi toneum or abscess.
[2018-10-17] MEDS: AMOXIC-POT CLAV 875MG STARTER 2 EACH TABLET PO STA (15:34)
== END 2018-10-17 15:34 | disposition home or self-care (01) ==
LOC: EC 11:06
DX: K57.92 Diverticulitis of intestine, part unspecified, without perforation or abscess without bleeding (principal); F32.9 Major depressive disorder, single episode, unspecified; Z85.828 Personal history of other malignant neoplasm of skin; Z87.891 Personal history of nicotine dependence; Z79.890 Hormone replacement therapy; Z79.899 Other long term (current) drug therapy; Z88.1 Allergy status to other antibiotic agents; Z88.6 Allergy status to analgesic agent; Z90.721 Acquired absence of ovaries, unilateral
CPT/HCPCS: 36415; 80053; 82150; 83690; 85025; 85610; 85730; 81001; 87086; 74177; 99284; 96374; 96375 ×3; 96361 ×2; J2270; J2405; J1885; C9113; Q9967

== ENCOUNTER → 2018-12-10 | Outpatient (CLI) | payer MEDICARE ==
--- NOTE | 2018-12-10 15:05 | MM ---
Reason for exam: follow-up at short interval from prior study. Last mammogram was performed 8 months ago. History: Patient is postmenopausal and history of other cancer. Family history of breast cancer in paternal cousin. Physical Findings: Nurse did not find any significant physical abnormalities on exam. MG 3D Diag Mammo W/Cad TR Bilateral CC and MLO view(s) were taken. Prior study comparison: April 21, 2018, right breast MG 3d diag mammo w/cad RT. October 07, 2017, bilateral MG 3d screening mammo w/cad. There are scattered fibroglandular densities. Tiny 3mm nodularity medial central right breast is stable to smaller from 04/21/18. Larger nodule has resolved. These results were verbally communicated with the patient and result sheet given to the patient on 12/10/18. ASSESSMENT: Incomplete: need additional imaging evaluation, BI-RAD 0 RECOMMENDATION: Ultrasound of the right breast.
--- NOTE | 2018-12-10 15:07 | USB ---
Reason for exam: follow-up at short interval from prior study. History: Patient is postmenopausal and history of other cancer. Family history of breast cancer in paternal cousin. US Breast RT Right complete breast ultrasound includes all four quadrants, the retroareolar region and axilla. Finding demonstrates no cystic or solid lesion seen. These results were verbally communicated with the patient and result sheet given to the patient on 12/10/18. ASSESSMENT: Benign, BI-RAD 2 RECOMMENDATION: Routine screening mammogram of both breasts in 1 year. Manage on a clinical basis with regard to chronic right breast pain.
== END | disposition home or self-care (01) ==
LOC: RADMAMWWP 13:18
PROVIDERS: ATTEND Family Medicine
DX: R92.8 Other abnormal and inconclusive findings on diagnostic imaging of breast (principal)
CPT/HCPCS: 77066; 76641; G0279; 77062

== ENCOUNTER → 2019-02-25 | Outpatient (CLI) | payer MEDICARE ==
--- NOTE | 2019-02-25 14:18 | BD ---
EXAMINATION TYPE: Axial Bone Density DATE OF EXAM: 02/25/2019 COMPARISON: 12/29/2015 CLINICAL HISTORY: Height: 65.25 IN Weight: 168 LBS FRAX RISK QUESTIONS: History of Fracture in Adulthood: YES TR WRIST FX AGE 59; FX OF TOE AGE 68 Secondary Osteoporosis: 3. Menopause before 45: YES AGE 39 Rheumatoid Arthritis: YES RISK FACTORS HISTORY OF: History of Wrist Fracture: YES TR WRIST AGE 59 Surgery to Wrist (TR): TR WRIST SURGERY AGE 59 Active: YES Diet low in dairy products/other sources of calcium: YES Postmenopausal woman: AGE 39 Frequent falls: PT HAS WEAKNESS IN LEGS MEDICATIONS: Thyroid Medications: YES Which medication: Synthroid How Lon YEARS Additional Medications: CALCIUM, VIT D, CRESTOR, SYNTHROID, MULTI VIT,WELLBUTRIN, ANXIETY MEDS, BLADD ER DYSFUNCTION MEDS, KLONOPIN, PREVACID, EFFEXOR, LAMICTAL, LOSARTAN, ADVAIR, Additional History: PT HAD SKIN CANCER EXAM MEASUREMENTS: Bone mineral densitometry was performed using the [employer]. Bone mineral density as measured about the Lumbar spine is: ----- L1-L4(G/cm2): 1.059 T Score Values are as follows: ----- L2: -2.1 ----- L3: 0.3 ----- L4: -0.7 ----- L1-L4: -1.0 Bone mineral density has: Increased 2.7% since study of: 12/29/2015 Bone mineral density about the R hip (g/cm2): 0.799 Bone mineral density about the L hip (g/cm2): 0.821 T Score values are as follows: -----R Neck: -1.7 -----L Neck: -1.6 -----R Total: -0.9 -----L Total: -0.9 Bone mineral density has: Increased 0.2% since study of: 12/29/2015 IMPRESSION: Osteopenia (T Score between -2.5 and -1) remains present in both hips. Bone density fairly stable fro m prior. There remains slightly increased risk of fracture and the patient may be considered for treatment. Re-Screen 2-5 years. NOTE: T-SCORE=SD OF THE YOUNG ADULT MEAN.
== END | disposition home or self-care (01) ==
LOC: RADBDWWP 12:47
PROVIDERS: ATTEND Family Medicine
DX: M85.80 Other specified disorders of bone density and structure, unspecified site (principal)
CPT/HCPCS: 77080

== ENCOUNTER → 2019-07-10 | Outpatient (CLI) | payer MEDICARE ==
--- NOTE | 2019-07-10 15:15 | XR ---
EXAMINATION TYPE: XR chest 2V DATE OF EXAM: 07/10/2019 COMPARISON: NONE TECHNIQUE: PA and lateral views submitted. HISTORY: COPD FINDINGS: The lungs are clear and there is no pneumothorax, pleural effusion, or focal pneumonia. Mild hyperi nflation. Hypertrophic change of the spine. Biapical pleural thickening. No overt failure. IMPRESSION: 1. No acute process.
== END | disposition home or self-care (01) ==
LOC: LABWHC1 14:55
PROVIDERS: ATTEND Family Medicine
DX: J15.9 Unspecified bacterial pneumonia (principal)
CPT/HCPCS: 71046

== ENCOUNTER 2019-07-22 11:35 | Emergency (ER) | payer MEDICARE ==
[2019-07-22] MEDS ORDERED: IPRATROPIUM-ALBUTEROL 3 ML NEB INHALATION STA (12:56)
[2019-07-22] MEDS ORDERED: SODIUM CHLORIDE 0.9% 1,000 ML IV STA ×2 (12:56)
[2019-07-22] MEDS ORDERED: methylPREDNISolone SOD SUCCI 125 MG/2 ML VIAL IV STA (12:56)
[2019-07-22 13:14] VITALS: RESP 18
[2019-07-22 13:50] LABS: Basophils % (A) 1 %; Eosinophils # (A) 0.1 k/uL (0-0.7); Eosinophils % (A) 1 %; HCT 39.4 % (34.0-46.0); HGB 12.8 gm/dL (11.4-16.0); Lymphocytes % (A) 30 %; MCH 29.8 pg (25.0-35.0); MCHC 32.6 g/dL (31.0-37.0); MCV 91.4 fL (80.0-100.0); Mean Platelet Volume 7.6; Monocytes # (A) 0.4 k/uL (0-1.0); Monocytes % (A) 6 %; Neutrophils # (A) 3.9 k/uL (1.3-7.7); Neutrophils % (A) 59 %; Platelet Count 298 k/uL (150-450); RBC 4.31 m/uL (3.80-5.40); RDW 12.5 % (11.5-15.5); WBC 6.5 k/uL (3.8-10.6)
[2019-07-22 14:20] LABS: ALT 24 U/L (4-34); AST 67 U/L (14-36); African American GFR (CKD) >90 (>60 ml/min/1.73 sqM); Albumin 4.3 g/dL (3.5-5.0); Alkaline Phosphatase 69 U/L (38-126); Anion Gap 6 mmol/L; Blood Urea Nitrogen 14 mg/dL (7-17); Calcium 9.3 mg/dL (8.4-10.2); Carbon Dioxide 28 mmol/L (22-30); Chloride 106 mmol/L (98-107); Glucose 96 mg/dL (74-99); INR 0.9 (<1.2); Magnesium 2.2 mg/dL (1.6-2.3); Non-African American GFR(CKD) 78 (>60 ml/min/1.73 sqM); Partial Thromboplastin Time 21.7 sec (22.0-30.0); Potassium 5.3 mmol/L (3.5-5.1); Prothrombin Time 9.5 sec (9.0-12.0); Sodium 140 mmol/L (137-145); Total Bilirubin 0.3 mg/dL (0.2-1.3); Total Protein 6.8 g/dL (6.3-8.2)
--- NOTE | 2019-07-22 14:24 | XR ---
EXAMINATION TYPE: XR chest 2V DATE OF EXAM: 07/22/2019 COMPARISON: 07/10/2019 INDICATION: Difficulty in breathing TECHNIQUE: Frontal and lateral views of the chest are obtained. FINDINGS: The heart size is normal. The pulmonary vasculature is normal. The lungs are clear. IMPRESSION: 1. No acute pulmonary process.
[2019-07-22 14:25] LABS: D-Dimer 0.93 mg/L FEU (<0.60)
--- NOTE | 2019-07-22 14:40 | ED ---
General Adult HPI - General Chief complaint: Shortness of Breath Stated complaint: Pneumonia, JESSE, back pain Time Seen by Provider: 07/22/19 12:20 Source: patient, RN notes reviewed, old records reviewed Mode of arrival: ambulatory Limitations: no limitations - History of Present Illness Initial comments: Dee is a 69-year-old female. She presents today with worsening shortness of breath coughing and back pain. Patient reports that she states it feels pleurisy and she's been wheezing. She reports that she was treated initially with Bactrim for 10 days. Then switched to Augmentin.Patient reports that she woke up today with worsening back pain. Patient states that she has pain throughout multiple joints. She states she is trying to be evaluated for fibromyalgia. Patient states that she's had no specific fevers or chills. She reports the coughs been occasionally productive. Denies any hemoptysis. She denies any resting chest pain at this time. - Related Data Home Medications Medication Instructions Recorded Confirmed Levothyroxine Sodium [Synthroid] 25 mcg PO DAILY 12/12/15 10/17/18 Multivitamins, Thera [Multivitamin 1 tab PO DAILY 12/12/15 10/17/18 (formulary)] buPROPion XL [Wellbutrin XL] 450 mg PO DAILY 03/25/18 10/17/18 Venlafaxine HCl ER [Effexor XR] 300 mg PO DAILY 04/17/18 10/17/18 lamoTRIgine [LaMICtal] 50 mg PO BID 04/17/18 10/17/18 Docusate [Colace] 100 mg PO DAILY 04/30/18 10/17/18 clonazePAM [KlonoPIN] 0.5 mg PO BID@0800,1200 04/30/18 10/17/18 Cholecalciferol [Vitamin D3 (25 5,000 unit PO DAILY 08/11/18 10/17/18 Mcg = 1000 Iu)] Vit C/Ascorb Sod/Multivit-Min 1,000 mg PO DAILY 08/11/18 10/17/18 [Emergen-C 500 mg Chewable Tab] clonazePAM [KlonoPIN] 0.75 mg PO HS 08/11/18 10/17/18 Previous Rx's Medication Instructions Recorded Losartan [Cozaar] 50 mg PO DAILY #30 tab 08/14/18 Amoxic-Pot Clav 875-125Mg 1 tab PO Q12HR #20 tablet 10/17/18 [Augmentin 875-125] Cyclobenzaprine [Flexeril] 10 mg PO TID #12 tab 07/22/19 predniSONE 20 mg PO BID #10 tab 07/22/19 Allergies Allergy/AdvReac Type Severity Reaction Status Date / Time levofloxacin [From Levaquin] AdvReac Hallucinati Verified 10/17/18 11:39 ons metronidazole [From Flagyl] AdvReac Hallucinati Verified 10/17/18 11:39 ons naproxen [From Naprosyn] AdvReac Hallucinati Verified 10/17/18 11:39 ons Review of Systems ROS Statement: Those systems with pertinent positive or pertinent negative responses have been documented in the HPI. ROS Other: All systems not noted in ROS Statement are negative. Past Medical History Past Medical History: Cancer, COPD, GERD/Reflux, Pneumonia Additional Past Medical History / Comment(s): 08-11-17 pt wants both the flu and pne vaccine while here. hx [place] Palsy affected lt side of face, diverticulosis, being worked up for parkinson's, tremors, past falls,left eye lid basal cell cancer-removed,past [id number], migraines-in past took depakote for them,"cluster headaches. History of Any Multi-Drug Resistant Organisms: None Reported Additional Past Surgical History / Comment(s): left lower eyelid surgery (basal cell ca removed), left fallopian tube and ovary removed. BILAT WRIST SX, COLONOSCOPY, BILAT CATARACTS Past Anesthesia/Blood Transfusion Reactions: Previous Problems w/ Anesthesia Additional Past Anesthesia/Blood Transfusion Reaction / Comment(s): difficulty waking up after sx, clausterphobia. never had any blood transfusions. Past Psychological History: Anxiety, Depression Smoking Status: Former smoker Past Alcohol Use History: None Reported Past Drug Use History: None Reported - Past Family History Father Additional Family Medical History / Comment(s): PARKINSONS. uncle also had. Mother Additional Family Medical History / Comment(s): . hx of lupus General Exam - General Exam Comments Initial Comments: 69-year-old female. Alert and oriented. No distress. Limitations: no limitations General appearance: alert, in no apparent distress Head exam: Present: atraumatic, normocephalic, normal inspection Eye exam: Present: normal appearance, PERRL, EOMI. Absent: scleral icterus, conjunctival injection, periorbital swelling ENT exam: Present: normal exam, mucous membranes moist Neck exam: Present: normal inspection. Absent: tenderness, meningismus, lymphadenopathy Respiratory exam: Present: normal lung sounds bilaterally. Absent: respiratory distress, wheezes, rales, rhonchi, stridor Cardiovascular Exam: Present: regular rate, normal rhythm, normal heart sounds. Absent: systolic murmur, diastolic murmur, rubs, gallop, clicks GI/Abdominal exam: Present: soft, normal bowel sounds. Absent: distended, tenderness, guarding, rebound, rigid Extremities exam: Present: normal inspection Back exam: Present: normal inspection Neurological exam: Present: alert, oriented X3, CN II-XII intact Psychiatric exam: Present: normal affect, normal mood Skin exam: Present: warm, dry, intact, normal color. Absent: rash Course Vital Signs 07/22/19 07/22/19 07/22/19 11:46 13:12 13:25 Temperature 97.7 F Pulse Rate 83 72 74 Respiratory 19 18 Rate Blood Pressure 136/73 131/78 O2 Sat by Pulse 98 97 Oximetry 07/22/19 07/22/19 07/22/19 13:38 16:00 16:48 Temperature 98.4 F Pulse Rate 77 81 82 Respiratory 18 18 Rate Blood Pressure 121/88 131/98 O2 Sat by Pulse 97 98 Oximetry Medical Decision Making - Medical Decision Making 69-year-old female presented today for concern for back pain, cough. She's been treated for pneumonia with bactrim and later Augmentin. She is no significant wheezing. Patient's saturations been well. No fever. Full workup was completed. She did find have a mildly elevated d-dimer. CT of the chest was reviewed. There is no sign of pneumonia or PE. Patient's pain seems to be more musculoskeletal. She also complains of intermittent joint pains. Discussed that she would benefit from following up with primary care doctor or possibly windows infrastructure engineer. Patient was pleased with normal results and discussed that we can put the Patient on anti-inflammatory medicine such as steroids and muscle relaxers. Patient is agreeable to treatment plan will comply. - Lab Data Result diagrams: 07/22/19 13:10 07/22/19 13:10 Lab Results 07/22/19 07/22/19 07/22/19 Range/Units 13:10 13:10 13:10 WBC 6.5 (3.8-10.6) k/uL RBC 4.31 (3.80-5.40) m/uL Hgb 12.8 (11.4-16.0) gm/dL Hct 39.4 (34.0-46.0) % MCV 91.4 (80.0-100.0) fL MCH 29.8 (25.0-35.0) pg MCHC 32.6 (31.0-37.0) g/dL RDW 12.5 (11.5-15.5) % Plt Count 298 (150-450) k/uL Neutrophils % 59 % Lymphocytes % 30 % Monocytes % 6 % Eosinophils % 1 % Basophils % 1 % Neutrophils # 3.9 (1.3-7.7) k/uL Lymphocytes # 2.0 (1.0-4.8) k/uL Monocytes # 0.4 (0-1.0) k/uL Eosinophils # 0.1 (0-0.7) k/uL Basophils # 0.0 (0-0.2) k/uL PT 9.5 (9.0-12.0) sec INR 0.9 (<1.2) APTT 21.7 L (22.0-30.0) sec D-Dimer 0.93 H (<0.60) mg/L FEU Sodium 140 (137-145) mmol/L Potassium 5.3 H (3.5-5.1) mmol/L Chloride 106 (98-107) mmol/L Carbon Dioxide 28 (22-30) mmol/L Anion Gap 6 mmol/L BUN 14 (7-17) mg/dL Creatinine 0.78 (0.52-1.04) mg/dL Est GFR (CKD-EPI)AfAm >90 (>60 ml/min/1.73 sqM) Est GFR (CKD-EPI)NonAf 78 (>60 ml/min/1.73 sqM) Glucose 96 (74-99) mg/dL Calcium 9.3 (8.4-10.2) mg/dL Magnesium 2.2 (1.6-2.3) mg/dL Total Bilirubin 0.3 (0.2-1.3) mg/dL AST 67 H (14-36) U/L ALT 24 (4-34) U/L Alkaline Phosphatase 69 (38-126) U/L Troponin I (0.000-0.034) ng/mL Total Protein 6.8 (6.3-8.2) g/dL Albumin 4.3 (3.5-5.0) g/dL 07/22/19 Range/Units 13:10 WBC (3.8-10.6) k/uL RBC (3.80-5.40) m/uL Hgb (11.4-16.0) gm/dL Hct (34.0-46.0) % MCV (80.0-100.0) fL MCH (25.0-35.0) pg MCHC (31.0-37.0) g/dL RDW (11.5-15.5) % Plt Count (150-450) k/uL Neutrophils % % Lymphocytes % % Monocytes % % Eosinophils % % Basophils % % Neutrophils # (1.3-7.7) k/uL Lymphocytes # (1.0-4.8) k/uL Monocytes # (0-1.0) k/uL Eosinophils # (0-0.7) k/uL Basophils # (0-0.2) k/uL PT (9.0-12.0) sec INR (<1.2) APTT (22.0-30.0) sec D-Dimer (<0.60) mg/L FEU Sodium (137-145) mmol/L Potassium (3.5-5.1) mmol/L Chloride (98-107) mmol/L Carbon Dioxide (22-30) mmol/L Anion Gap mmol/L BUN (7-17) mg/dL Creatinine (0.52-1.04) mg/dL Est GFR (CKD-EPI)AfAm (>60 ml/min/1.73 sqM) Est GFR (CKD-EPI)NonAf (>60 ml/min/1.73 sqM) Glucose (74-99) mg/dL Calcium (8.4-10.2) mg/dL Magnesium (1.6-2.3) mg/dL Total Bilirubin (0.2-1.3) mg/dL AST (14-36) U/L ALT (4-34) U/L Alkaline Phosphatase (38-126) U/L Troponin I <0.012 (0.000-0.034) ng/mL Total Protein (6.3-8.2) g/dL Albumin (3.5-5.0) g/dL 07/22/19 16:30 EKG performed at 1312 shows normal sinus rhythm normal EKG. Retrograde 74 bpm. Verbal is 140 ms. QS duration 86 ms. QT QTC 374/4:15 milliseconds. - Radiology Data Radiology results: report reviewed chest x-rays in for any acute cardiomegaly process. CT angio chest shows no o pneumonia o rPE. Disposition Clinical Impression: Back pain, History of cough, Muscle spasm of back Disposition: HOME SELF-CARE Condition: Good Instructions (If sedation given, give patient instructions): Arthralgia (ED) Additional Instructions: Patient advised to follow-up with your primary care doctor. Take the steroids and muscle relaxers prescribed. Return to emergency department if any alarming signs or symptoms occur. Prescriptions: Cyclobenzaprine [Flexeril] 10 mg PO TID #12 tab predniSONE 20 mg PO BID #10 tab Is patient prescribed a controlled substance at d/c from ED?: No Referrals: Diamante Bynum MD [Primary Care Provider] - 1-2 days Time of Disposition: 16:31
--- NOTE | 2019-07-22 15:49 | CT ---
CT CHEST FOR PULMONARY EMBOLISM. EXAMINATION TYPE: CT chest angio for PE DATE OF EXAM: 07/22/2019 INDICATION: Chest pain with shortness of breath CT DLP: 316.8 mGycm, Automated exposure control for dose reduction was used. CONTRAST: Patient injected with 100 mL of Isovue 370. COMPARISON: None TECHNIQUE: CT of the chest is performed on a spiral scan at 2 mm thick sections. Study is performed with intravenous contrast timed for evaluation for pulmonary embolism. This will limit additional po rtions of the evaluation. 3-D MIP images reconstructed by the technologist are reviewed on the compu ter in the coronal and sagittal planes. FINDINGS: No persistent filling defects are evident to suggest an acute pulmonary embolism. No mediastinal or hilar adenopathy enlarged by CT criteria is evident. The ascending aorta diameter at the level of the main pulmonary artery is 3.2 cm. The main pulmonary artery diameter at the bifur cation is 2.2 cm. Lung windows are clear. Limited CT section through the upper abdomen are unremarkable. IMPRESSIONS: 1. No acute pulmonary embolism.
[2019-07-22 16:51] VITALS: BP 131/98; PULSE 82; TEMP 98.4
== END 2019-07-22 16:48 | disposition home or self-care (01) ==
LOC: EC 11:35
DX: M62.830 Muscle spasm of back (principal); R79.1 Abnormal coagulation profile; R06.02 Shortness of breath; F32.9 Major depressive disorder, single episode, unspecified; F41.9 Anxiety disorder, unspecified; Z87.891 Personal history of nicotine dependence; Z88.1 Allergy status to other antibiotic agents; Z88.6 Allergy status to analgesic agent; Z79.890 Hormone replacement therapy; Z79.899 Other long term (current) drug therapy; Z87.09 Personal history of other diseases of the respiratory system; Z87.01 Personal history of pneumonia (recurrent); Z85.840 Personal history of malignant neoplasm of eye; Z98.890 Other specified postprocedural states
CPT/HCPCS: 99285; 96374; 96361 ×2; 36415; 94640; 93005; 85379; 80053; 83735; 84484; 85025; 85610; 85730; 87040; 71046; 71275; J2930; Q9967

== ENCOUNTER 2019-08-08 15:10 | Observation (INO) | payer MEDICARE ==
[2019-08-08] MEDS ORDERED: NITROGLYCERIN OINT 1 INCH/GM PACKET TOPICAL STA (15:22)
[2019-08-08] MEDS ORDERED: ASPIRIN 81 MG PO STA (15:22)
--- NOTE | 2019-08-08 15:31 | ED ---
General Adult HPI - General Stated complaint: Chest Pain Time Seen by Provider: 08/08/19 15:12 Source: patient, RN notes reviewed Mode of arrival: EMS Limitations: no limitations - History of Present Illness Initial comments: Patient is a pleasant 69-year-old female presenting to the emergency Department with complaints of chest discomfort. Onset of symptoms was this morning. Patient has sharp discomfort right anterior chest wall. Discomfort does increase some with touching. Patient does feel little bit short of breath and slightly nauseated. No history of similar symptoms previously. No radiation. No leg pain or leg swelling. Patient has had some increased stress recently associated with [id number] being sick. - Related Data Home Medications Medication Instructions Recorded Confirmed Levothyroxine Sodium [Synthroid] 25 mcg PO DAILY 12/12/15 10/17/18 Multivitamins, Thera [Multivitamin 1 tab PO DAILY 12/12/15 10/17/18 (formulary)] buPROPion XL [Wellbutrin XL] 450 mg PO DAILY 03/25/18 10/17/18 Venlafaxine HCl ER [Effexor XR] 300 mg PO DAILY 04/17/18 10/17/18 lamoTRIgine [LaMICtal] 50 mg PO BID 04/17/18 10/17/18 Docusate [Colace] 100 mg PO DAILY 04/30/18 10/17/18 clonazePAM [KlonoPIN] 0.5 mg PO BID@0800,1200 04/30/18 10/17/18 Cholecalciferol [Vitamin D3 (25 5,000 unit PO DAILY 08/11/18 10/17/18 Mcg = 1000 Iu)] Vit C/Ascorb Sod/Multivit-Min 1,000 mg PO DAILY 08/11/18 10/17/18 [Emergen-C 500 mg Chewable Tab] clonazePAM [KlonoPIN] 0.75 mg PO HS 08/11/18 10/17/18 Previous Rx's Medication Instructions Recorded Losartan [Cozaar] 50 mg PO DAILY #30 tab 08/14/18 Amoxic-Pot Clav 875-125Mg 1 tab PO Q12HR #20 tablet 10/17/18 [Augmentin 875-125] Cyclobenzaprine [Flexeril] 10 mg PO TID #12 tab 07/22/19 predniSONE 20 mg PO BID #10 tab 07/22/19 Allergies Allergy/AdvReac Type Severity Reaction Status Date / Time levofloxacin [From Levaquin] AdvReac Hallucinati Verified 10/17/18 11:39 ons metronidazole [From Flagyl] AdvReac Hallucinati Verified 10/17/18 11:39 ons naproxen [From Naprosyn] AdvReac Hallucinati Verified 10/17/18 11:39 ons Review of Systems ROS Statement: Those systems with pertinent positive or pertinent negative responses have been documented in the HPI. ROS Other: All systems not noted in ROS Statement are negative. Constitutional: Denies: fever Eyes: Denies: eye pain ENT: Denies: ear pain Respiratory: Reports: as per HPI. Denies: cough Cardiovascular: Reports: chest pain Endocrine: Denies: fatigue Gastrointestinal: Denies: abdominal pain Genitourinary: Denies: dysuria Musculoskeletal: Denies: back pain Skin: Denies: rash Neurological: Denies: weakness Psychiatric: Reports: anxiety Past Medical History Past Medical History: Cancer, COPD, GERD/Reflux, Pneumonia Additional Past Medical History / Comment(s): 08-11-17 pt wants both the flu and pne vaccine while here. hx [place] Palsy affected lt side of face, diverticul osis, being worked up for parkinson's, tremors, past falls,left eye lid basal cell cancer-removed,past [id number], migraines-in past took depakote for them,"cluster headaches. History of Any Multi-Drug Resistant Organisms: None Reported Additional Past Surgical History / Comment(s): left lower eyelid surgery (basal cell ca removed), left fallopian tube and ovary removed. BILAT WRIST SX, COLONOSCOPY, BILAT CATARACTS Past Anesthesia/Blood Transfusion Reactions: Previous Problems w/ Anesthesia Additional Past Anesthesia/Blood Transfusion Reaction / Comment(s): difficulty waking up after sx, clausterphobia. never had any blood transfusions. Past Psychological History: Anxiety, Depression Smoking Status: Former smoker Past Alcohol Use History: None Reported Past Drug Use History: None Reported - Past Family History Father Additional Family Medical History / Comment(s): PARKINSONS. uncle also had. Mother Additional Family Medical History / Comment(s): . hx of lupus General Exam General appearance: alert, in no apparent distress Head exam: Present: normocephalic Eye exam: Present: normal appearance, PERRL ENT exam: Present: normal oropharynx Neck exam: Present: normal inspection Respiratory exam: Present: normal lung sounds bilaterally, chest wall tenderness Cardiovascular Exam: Present: regular rate, normal rhythm Expanded Peripheral pulses: 2+: Radial (R), Radial (L), Dorsalis Pedis (R), Dorsalis Pedis (L) GI/Abdominal exam: Present: soft. Absent: tenderness Extremities exam: Present: normal inspection. Absent: pedal edema, calf tenderness Neurological exam: Present: alert Psychiatric exam: Present: normal affect, normal mood Skin exam: Present: normal color Course Vital Signs 08/08/19 15:15 Temperature 98.7 F Pulse Rate 72 Pulse Rate [ 73 Financial Systems Administrator ] Respiratory 18 Rate Blood Pressure 151/89 O2 Sat by Pulse 98 Oximetry EKG Findings - EKG Comments: EKG Findings:: Normal sinus rhythm 74. IL 148. QRS 90. QT 388. QTC 4:30. Normal axis. Normal QRS. No acute ST change. Medical Decision Making - Medical Decision Making Patient reevaluated and resting comfortably in bed. Mild improvement with nitro glycerin paced. Patient and family updated on results and plan. Case was discussed in detail with Dr. Caro, covering for Dr. Evans, who will admit for Dr. parkinson. - Lab Data Result diagrams: 08/08/19 15:50 08/08/19 15:50 Lab Results 08/08/19 08/08/19 08/08/19 Range/Units 15:50 15:50 15:50 WBC 6.5 (3.8-10.6) k/uL RBC 4.30 (3.80-5.40) m/uL Hgb 12.5 (11.4-16.0) gm/dL Hct 38.9 (34.0-46.0) % MCV 90.4 (80.0-100.0) fL MCH 29.0 (25.0-35.0) pg MCHC 32.1 (31.0-37.0) g/dL RDW 12.6 (11.5-15.5) % Plt Count 284 (150-450) k/uL Neutrophils % 56 % Lymphocytes % 31 % Monocytes % 7 % Eosinophils % 2 % Basophils % 1 % Neutrophils # 3.6 (1.3-7.7) k/uL Lymphocytes # 2.0 (1.0-4.8) k/uL Monocytes # 0.4 (0-1.0) k/uL Eosinophils # 0.1 (0-0.7) k/uL Basophils # 0.1 (0-0.2) k/uL PT 9.6 (9.0-12.0) sec INR 0.9 (<1.2) APTT 21.7 L (22.0-30.0) sec D-Dimer 0.35 (<0.60) mg/L FEU Sodium 138 (137-145) mmol/L Potassium 4.5 (3.5-5.1) mmol/L Chloride 105 (98-107) mmol/L Carbon Dioxide 25 (22-30) mmol/L Anion Gap 8 mmol/L BUN 19 H (7-17) mg/dL Creatinine 0.85 (0.52-1.04) mg/dL Est GFR (CKD-EPI)AfAm 81 (>60 ml/min/1.73 sqM) Est GFR (CKD-EPI)NonAf 70 (>60 ml/min/1.73 sqM) Glucose 89 (74-99) mg/dL Calcium 9.3 (8.4-10.2) mg/dL Magnesium 1.9 (1.6-2.3) mg/dL Total Bilirubin 0.3 (0.2-1.3) mg/dL AST 77 H (14-36) U/L ALT 25 (4-34) U/L Alkaline Phosphatase 62 (38-126) U/L Creatine Kinase 56 (30-135) U/L Troponin I (0.000-0.034) ng/mL NT-Pro-B Natriuret Pep pg/mL Total Protein 6.5 (6.3-8.2) g/dL Albumin 4.1 (3.5-5.0) g/dL 08/08/19 08/08/19 Range/Units 15:50 15:50 WBC (3.8-10.6) k/uL RBC (3.80-5.40) m/uL Hgb (11.4-16.0) gm/dL Hct (34.0-46.0) % MCV (80.0-100.0) fL MCH (25.0-35.0) pg MCHC (31.0-37.0) g/dL RDW (11.5-15.5) % Plt Count (150-450) k/uL Neutrophils % % Lymphocytes % % Monocytes % % Eosinophils % % Basophils % % Neutrophils # (1.3-7.7) k/uL Lymphocytes # (1.0-4.8) k/uL Monocytes # (0-1.0) k/uL Eosinophils # (0-0.7) k/uL Basophils # (0-0.2) k/uL PT (9.0-12.0) sec INR (<1.2) APTT (22.0-30.0) sec D-Dimer (<0.60) mg/L FEU Sodium (137-145) mmol/L Potassium (3.5-5.1) mmol/L Chloride (98-107) mmol/L Carbon Dioxide (22-30) mmol/L Anion Gap mmol/L BUN (7-17) mg/dL Creatinine (0.52-1.04) mg/dL Est GFR (CKD-EPI)AfAm (>60 ml/min/1.73 sqM) Est GFR (CKD-EPI)NonAf (>60 ml/min/1.73 sqM) Glucose (74-99) mg/dL Calcium (8.4-10.2) mg/dL Magnesium (1.6-2.3) mg/dL Total Bilirubin (0.2-1.3) mg/dL AST (14-36) U/L ALT (4-34) U/L Alkaline Phosphatase (38-126) U/L Creatine Kinase (30-135) U/L Troponin I <0.012 (0.000-0.034) ng/mL NT-Pro-B Natriuret Pep 55 pg/mL Total Protein (6.3-8.2) g/dL Albumin (3.5-5.0) g/dL - Radiology Data Radiology results: image reviewed (Chest x-ray showed no acute process) Disposition Clinical Impression: Chest pain Disposition: ADMITTED IP TO THIS [facility] Is patient prescribed a controlled substance at d/c from ED?: No Referrals: Diamante Bynum MD [Primary Care Provider] - 1-2 days Decision Time: 17:56
[2019-08-08 16:11] LABS: Basophils # (A) 0.1 k/uL (0-0.2); Basophils % (A) 1 %; Eosinophils # (A) 0.1 k/uL (0-0.7); Eosinophils % (A) 2 %; HCT 38.9 % (34.0-46.0); HGB 12.5 gm/dL (11.4-16.0); Lymphocytes % (A) 31 %; MCHC 32.1 g/dL (31.0-37.0); MCV 90.4 fL (80.0-100.0); Mean Platelet Volume 7.4; Monocytes # (A) 0.4 k/uL (0-1.0); Monocytes % (A) 7 %; Neutrophils # (A) 3.6 k/uL (1.3-7.7); Neutrophils % (A) 56 %; Platelet Count 284 k/uL (150-450); RDW 12.6 % (11.5-15.5); WBC 6.5 k/uL (3.8-10.6)
[2019-08-08 16:21] LABS: Albumin 4.1 g/dL (3.5-5.0); Calcium 9.3 mg/dL (8.4-10.2); Magnesium 1.9 mg/dL (1.6-2.3); Potassium 4.5 mmol/L (3.5-5.1); Total Bilirubin 0.3 mg/dL (0.2-1.3); Total Protein 6.5 g/dL (6.3-8.2)
[2019-08-08 16:32] LABS: D-Dimer 0.35 mg/L FEU (<0.60); INR 0.9 (<1.2); Prothrombin Time 9.6 sec (9.0-12.0)
[2019-08-08 16:39] LABS: Partial Thromboplastin Time 21.7 sec (22.0-30.0)
--- NOTE | 2019-08-08 16:41 | XR ---
EXAMINATION TYPE: XR chest 2V DATE OF EXAM: 08/08/2019 COMPARISON: 07/22/2019 HISTORY: 69 year-old female chest pain TECHNIQUE: PA and lateral views FINDINGS: The cardiomediastinal silhouette, aorta, and pulmonary vasculature are within normal limits. Mild hyp erinflation. Lungs and pleural spaces are clear. IMPRESSION: COPD without acute cardiopulmonary process.
[2019-08-08] MEDS ORDERED: NITROGLYCERIN SL TABS 0.4 MG TAB SUBLINGUAL PRN (17:56)
[2019-08-08] MEDS: NITROGLYCERIN OINT 1 INCH/GM PACKET TOPICAL SCH ×2 (18:19→23:04)
[2019-08-08] MEDS ORDERED: DOCUSATE 100 MG CAP PO PRN (22:32)
[2019-08-08] MEDS ORDERED: PANTOPRAZOLE 40 MG TABLET PO PRN (22:32)
[2019-08-08] MEDS ORDERED: lamoTRIgine 25 MG TAB PO ONE (22:37)
[2019-08-08] MEDS ORDERED: ATORVASTATIN 10 MG TAB PO SCH (22:45)
[2019-08-08] MEDS: clonazePAM 0.5 MG TAB PO SCH (22:58)
[2019-08-09 04:02] LABS: Cholesterol 235 mg/dL (<200); HDL Cholesterol 45 mg/dL (40-60); Triglycerides 467 mg/dL (<150)
[2019-08-09] MEDS: NITROGLYCERIN OINT 1 INCH/GM PACKET TOPICAL SCH (05:25)
[2019-08-09] MEDS ORDERED: ACETAMINOPHEN TAB 325 MG TAB PO STA (06:21)
[2019-08-09 06:57] VITALS: BP 110/70; PULSE 83; RESP 18; TEMP 97.7
[2019-08-09] MEDS ORDERED: LEVOTHYROXINE 25 MCG TAB PO SCH (07:00)
[2019-08-09] MEDS ORDERED: MULTIVITAMINS, THERA 1 EACH TAB PO SCH (08:00)
[2019-08-09] MEDS ORDERED: SYMBICORT 80-4.5 MCG INHALER INHALATION SCH (08:00)
[2019-08-09] MEDS ORDERED: clonazePAM 0.5 MG TAB PO SCH (08:00)
[2019-08-09] MEDS ORDERED: lamoTRIgine 25 MG TAB PO SCH (08:00)
[2019-08-09] MEDS ORDERED: LOSARTAN 50 MG TAB PO SCH (08:00)
[2019-08-09] MEDS ORDERED: VENLAFAXINE HCL ER 150 MG CAP PO SCH (08:00)
[2019-08-09] MEDS ORDERED: CHOLECALCIFEROL 1,000 UNIT TAB PO SCH (08:00)
[2019-08-09] MEDS ORDERED: FLUTICASONE 50MCG/SPRAY NASAL 16GM EA NOSTRIL SCH (08:00)
[2019-08-09] MEDS ORDERED: buPROPion XL 150 MG TAB.ER.24H PO SCH (08:00)
[2019-08-09] MEDS ORDERED: ASPIRIN 325 MG TAB PO SCH (09:00)
[2019-08-09] MEDS ORDERED: ACETAMINOPHEN TAB 500 MG TAB PO PRN (09:47)
[2019-08-09] MEDS: clonazePAM 0.5 MG TAB PO SCH (09:51)
--- NOTE | 2019-08-09 11:02 | CONS ---
CONSULTATION CHIEF COMPLAINT: Chest pain. Dee is a 69-year-old lady with history of hypothyroidism, hypertension, gastroesophageal reflux disease, dyslipidemia who presented to the hospital complaining of chest pain. She describes it as a precordial chest pressure that happened at rest yesterday, mild intensity unassociated with diaphoresis and unrelated to exertion. There was no clear relationship to the pain did not radiate to neck, arm or back, and it has gradually subsided since admission. EKG shows normal sinus rhythm and is within normal limits. Three sets of cardiac enzymes have been all normal. The cholesterol is elevated at 235, triglycerides are 467. The patient has had a similar episode of chest pain a year ago and was advised to undergo outpatient stress test, which she never did. She has seen Dr. Dave Caro, and will follow up with him. I advised the patient to stay here and get the stress test done tomorrow morning. Understanding all the issues, she wishes to go home and get the workup done in the outpatient setting. PAST MEDICAL HISTORY: Significant for hypertension, hypothyroidism, dyslipidemia, GERD, and COPD. MEDICATIONS: Include Colace, Flonase, Advair, Prevacid, Synthroid Cozaar, Crestor, Effexor, Klonopin, Lamictal. ALLERGIES: ALLERGIES TO LEVAQUIN, FLAGYL, AND NAPROSYN. FAMILY HISTORY: Negative for premature coronary artery disease. SOCIAL HISTORY: Negative for current smoking, EtOH abuse or drug abuse. REVIEW OF SYSTEMS: HEENT is unremarkable. Cardiac as described above. Respiratory negative. GI negative. GENITOURINARY negative. Allergy/Immunology: None. Skin negative. Musculoskeletal significant for arthritis. Psychosocial negative. Endocrine: Negative. Derm: Negative. CONSTITUTIONAL: Negative. Oncological negative. REHABILITATION TECHNICIAN negative. Rest of the system review is not relevant. PHYSICAL EXAM: The patient is comfortable at rest. Vital signs are stable. There is no jugular venous distention. Carotid upstroke is normal. There is no bruit. Chest exam reveals good air entry bilaterally. Heart exam reveals first and second heart sounds. No gallop. No murmur. No rub. Abdomen is soft, nontender. Exam of extremities did not reveal any edema. Peripheral pulses are felt. REHABILITATION TECHNICIAN exam did not reveal focal neurological deficits. EKG is negative. Cardiac enzymes are negative. ASSESSMENT: 1. Precordial chest pain. 2. Hypertension. 3. Dyslipidemia. 4. Hypothyroidism. PLAN: Patient's chest discomfort is atypical. EKG does not reveal ischemic changes. Cardiac enzymes have been negative. The patient will need an echo and Lexiscan for further evaluation. I advised her to stay in the hospital and get them done tomorrow. She wishes to go home and get these done in the outpatient setting. MMJOHAN / TRISTIAN: [id number] /
--- NOTE | 2019-08-09 11:26 | HP ---
HISTORY AND PHYSICAL DATE OF SERVICE: 08/09/2019 HISTORY OF PRESENT ILLNESS: Patient is a 69-year-old female who states that yesterday morning she started to experience midsternal chest pain at about 9:00 am with shortness of breath and mild nausea. The patient's gave her one of his nitros with no relief. Subsequently, patient took a full aspirin and called EMS and was brought to the ER for further evaluation and treatment. PAST MEDICAL HISTORY: Significant for cancer, COPD, reflux, Martinez's palsy, diverticulitis, tremors, memory loss, falls, left eye basal cell carcinoma, and hypothyroidism. PAST SURGICAL HISTORY: Significant for left lower eyelid surgery, left fallopian tube and ovary removed, bilateral wrist surgery, bilateral cataracts, and a colonoscopy. ALLERGIES: Include LEVAQUIN AND FLAGYL AND NAPROXEN. HOME MEDICATIONS: Include Lamictal 50 mg p.o. b.i.d., Klonopin 0.75 mg p.o. t.i.d., Wellbutrin XL 450 mg p.o. daily, Effexor XR 150 mg p.o. daily, Crestor 5 mg p.o. q.h.s., multivitamin 1 tab daily, Biofreeze applied topically b.i.d. p.r.n., Cozaar 50 mg p.o. daily, Synthroid 25 mcg p.o. daily, Prevacid 30 mg p.o. daily, Advair 250/50 one puff b.i.d., Flonase nasal spray 2 sprays each nostril daily, Colace 100 mg p.o. daily q.h.s., vitamin D3 5000 units p.o. daily. FAMILY HISTORY: Mother is with a history of lupus. Father unknown. SOCIAL HISTORY: The patient was a previous smoker, a pack per day starting at the age of 18. Patient quit 15 years ago. Denies any alcohol intake. Denies any illicit drug use. REVIEW OF SYSTEMS: GENERAL: Positive for chills which had started about 4 days ago, resolved at this time. Denies fever. Denies any weight change. HEENT: Positive for headache which Tylenol did relieve somewhat. The patient also states that her eyes hurt. She denies any difficulty hearing. Denies any sore throat or difficulty swallowing. RESPIRATORY: Positive for shortness of breath. The patient states she has COPD stage II. Denies any cough. CARDIOVASCULAR: Positive for chest pain, none at the current time. GI: Negative for abdominal pain, nausea, vomiting, diarrhea, or constipation. : Negative for dysuria or hematuria. ENDOCRINE: Negative for diabetes mellitus. Patient does have hypothyroidism. NEUROLOGIC: Negative for seizures. Patient is currently being worked up by Rheumatology for possible fibromyalgia. PSYCHIATRIC: Significant for anxiety and depression. MUSCULOSKELETAL: Positive for joint pain and generalized pain. PHYSICAL EXAM: GENERAL: 69-year-old female seen lying in bed, awake, alert, comfortable at this time. VITAL SIGNS: Temp 97.7, heart rate 83, respiratory rate 18, blood pressure is 110/70, O2 sats 97% on room air. HEENT. Head is normocephalic, atraumatic. Pupils equal, round, react to light. Ears and nose, no discharge is noted. Mouth with moist mucous membranes. Mallampati is a class 3. NECK: Supple. Trachea is midline. No lymphadenopathy. LUNGS: Clear, slightly diminished. No rales or wheezes. HEART: S1, S2 heard. Not tachycardic. ABDOMEN: Soft. Bowel sounds are positive. EXTREMITIES: No edema. NEUROLOGIC: Patient is awake and alert. LABS: White count 6.5, hemoglobin 12.5, hematocrit 38.9 with 284,000 platelets. PT is 9.6, INR 0.9, PTT is 21.7. D-dimer 0.35. Sodium is 138, potassium is 4.5, chloride 105, CO2 is 25, anion gap is 8, BUN is 19, creatinine 0.85, glucose is 89, calcium is 9.3, magnesium is 1.9, total bilirubin 0.3, AST is 77, ALT is 25, alkaline phosphatase is 62, CK is 56, troponin is less than 0.012. BNP is 55, total protein is 6.5, albumin is 4.1, triglycerides are 467, cholesterol is 235, HDL is 45. Serial troponins remained less than 0.012 x 3. IMAGING: Chest x-ray which shows COPD without acute cardiopulmonary process. IMPRESSION: 1. Chest pain with shortness of breath and slight nausea. 2. History of chronic obstructive pulmonary disease, stable. 3. History of anxiety and depression. PLAN: The patient to be admitted to telemetry. Cardiology consult has been requested. The patient will be restarted on home medications. Will receive Protonix for GI prophylaxis. SCDs for DVT prophylaxis. Oxygen as needed to maintain saturations greater than 92%. We will follow patient closely making further changes as necessary. EWA / TSERINGN: [id number] / MTDD
[2019-08-09] MEDS ORDERED: ATORVASTATIN 10 MG TAB PO SCH ×2 (18:00→21:00)
--- NOTE | 2019-08-09 19:02 | DS ---
DISCHARGE SUMMARY DISCHARGE SUMMARY: Please see the history and physical dictated for circumstances of her initial admission. In brief, the patient is a 69-year-old female who had chest pain that started at 9:00 am the previous day with shortness of breath and nausea. She was seen in the ER. PAST MEDICAL HISTORY: Positive for Martinez's Palsy, COPD, diverticulitis. She had a similar episode about 2 to 3 months ago, but did not follow up for further testing. SOCIAL HISTORY: Is positive for patient being a previous smoker. She had quit 15 years ago. PHYSICAL EXAMINATION: She had a temperature of 97.7, heart rate of 83, respiratory rate of 18, blood pressure 110/70. HEENT was unremarkable. Neck was supple. Lungs within normal limits. Cardiovascular system is S1, S2. Abdomen is soft. There was no edema. INITIAL IMPRESSION: 1. Chest pain with shortness of breath and slight nausea, possibly secondary to gastroesophageal reflux disease. 2. Chronic obstructive pulmonary disease. 3. History of anxiety and depression. 4. Possible coronary artery disease. The patient received Protonix for GI prophylaxis. SCDs for DVT prophylaxis. The patient was seen by Cardiology who did not recommend any further workup but close outpatient followup. The patient's troponins were less than 0.012. The patient was discharged home. FINAL DIAGNOSES: 1. Chest pain. 2. Gastroesophageal reflux disease. 3. Anxiety. CONDITION: Stable. DIET: Cardiac. ACTIVITY: As tolerated. DISCHARGE MEDICATIONS: 1. Lamictal 50 mg p.o. b.i.d. 2. Klonopin 0.75 mg p.o. t.i.d.. 3. Wellbutrin XL 450 mg p.o. daily. 4. Venlafaxine 150 mg p.o. daily. 5. Crestor 5 mg p.o. q.h.s. 6. Multivitamin 1 tab p.o. daily. 7. Menthol 1 application topical b.i.d. 8. Cozaar 50 mg p.o. daily. 9. Synthroid 25 mcg p.o. daily. 10.Prevacid 30 mg p.o. daily. 11.Advair Diskus 50/250 1 puff twice a day. 12.Fluticasone nasal spray 2 sprays each nostril daily. 13.Colace 100 mg daily. 14.Cholecalciferol 5000 units p.o. daily. The patient is to follow up with the primary care physicians in 1-2 weeks time and Cardiology in 1-2 weeks time. MMJO-ANNL / IJN: [id number] /
== END 2019-08-09 11:05 | disposition home or self-care (01) ==
LOC: EC 15:10 → 1SOBS 17:56
PROVIDERS: ADMIT Internal Medicine; ATTEND Internal Medicine
DX: R07.89 Other chest pain (principal); R06.02 Shortness of breath; R11.0 Nausea; E03.9 Hypothyroidism, unspecified; E78.5 Hyperlipidemia, unspecified; I10 Essential (primary) hypertension; J44.9 Chronic obstructive pulmonary disease, unspecified; K21.9 Gastro-esophageal reflux disease without esophagitis; F41.9 Anxiety disorder, unspecified; F32.9 Major depressive disorder, single episode, unspecified; Z87.891 Personal history of nicotine dependence; R25.1 Tremor, unspecified; Z85.828 Personal history of other malignant neoplasm of skin; Z87.19 Personal history of other diseases of the digestive system; Z91.81 History of falling; Z98.42 Cataract extraction status, left eye; Z98.41 Cataract extraction status, right eye; Z90.79 Acquired absence of other genital organ(s); Z90.721 Acquired absence of ovaries, unilateral; Z79.51 Long term (current) use of inhaled steroids; Z79.890 Hormone replacement therapy; Z79.899 Other long term (current) drug therapy; Z88.8 Allergy status to other drugs, medicaments and biological substances; Z83.2 Family history of diseases of the blood and blood-forming organs and certain disorders involving the immune mechanism; Z82.0 Family history of epilepsy and other diseases of the nervous system
CPT/HCPCS: 93005 ×2; 99285; 36415; 94640; 85379; 83880; 80061; 80053; 82550; 83735; 84484 ×2; 85025; 85610; 85730; 71046; G0378 ×2

== ENCOUNTER → 2019-12-29 | Outpatient (CLI) | payer MEDICARE ==
[2019-12-29 14:52] LABS: Basophils # (A) 0.1 k/uL (0-0.2); Basophils % (A) 1 %; Eosinophils # (A) 0.1 k/uL (0-0.7); Eosinophils % (A) 2 %; HCT 41.2 % (34.0-46.0); HGB 13.4 gm/dL (11.4-16.0); Lymphocytes # (A) 1.9 k/uL (1.0-4.8); Lymphocytes % (A) 27 %; MCH 29.7 pg (25.0-35.0); MCHC 32.6 g/dL (31.0-37.0); MCV 91.1 fL (80.0-100.0); Monocytes # (A) 0.4 k/uL (0-1.0); Monocytes % (A) 6 %; Neutrophils # (A) 4.3 k/uL (1.3-7.7); Neutrophils % (A) 61 %; Platelet Count 275 k/uL (150-450); RBC 4.52 m/uL (3.80-5.40); RDW 12.7 % (11.5-15.5)
[2019-12-29 15:03] LABS: Albumin 4.4 g/dL (3.5-5.0); C Reactive Protein 6.3 mg/L (<10.0); Calcium 9.5 mg/dL (8.4-10.2); Potassium 4.8 mmol/L (3.5-5.1); Total Bilirubin 0.3 mg/dL (0.2-1.3); Total Protein 7.2 g/dL (6.3-8.2)
[2019-12-29 15:29] LABS: Erythrocyte Sedimentation Rate 2 mm/hr (0-20)
--- NOTE | 2019-12-29 15:59 | CT ---
EXAMINATION TYPE: CT angio chest DATE OF EXAM: 12/29/2019 COMPARISON: 07/22/2019 HISTORY: Shortness of breath and chest tightness CT DLP: 342.4 mGycm. Automated Exposure Control for Dose Reduction was Utilized. CONTRAST: CTA scan of the thorax is performed with IV Contrast, patient injected with 54 mL of Isovue 300, pulm onary embolism protocol. MIP Images are created on CT scanner and reviewed. FINDINGS: LUNGS: Focal groundglass opacity in the anterior right upper lobe marked on images 62 and 63. This me asures approximately 6 mm. There is no pleural effusion or pneumothorax seen. The tracheobronchial t ree is patent. Biapical pleural parenchymal scarring. MEDIASTINUM: There is suboptimal enhancement of the pulmonary artery and its branches, there is no CT evidence for central pulmonary embolism. Overall nondiagnostic evaluation of the subsegmental pulmon doug arteries. There are no greater than 1 cm hilar or mediastinal lymph nodes. No cardiomegaly or p ericardial effusion is seen. Few coronary calcifications are seen, limited evaluation for atheroscler osis of the coronary arteries given phase of contrast. OTHER: The gallbladder is elongated measuring 9.0 cm, nearly hydropic in size. Gallbladder is only pa rtially visualized. Mild to moderate multilevel degenerative change of the spine. IMPRESSION: 1. No central pulmonary embolus. Limited evaluation of the subsegmental pulmonary arteries. Lower ext remity ultrasound could be performed if there is further concern. 2. Nearly hydropic size of the gallbladder. Correlate with alkaline phosphatase, bilirubin, and liver function tests to determine the need for right upper quadrant ultrasound or HIDA scan. 3. Approximately 6 mm groundglass density in the anterior right upper lobe. Consensus criteria recomm ends follow-up CT in 6-12 months to assess for interval growth.
== END | disposition home or self-care (01) ==
LOC: RADCTMAIN 13:14
PROVIDERS: ATTEND Family Medicine
DX: J98.4 Other disorders of lung (principal); R73.01 Impaired fasting glucose; R06.00 Dyspnea, unspecified; R07.89 Other chest pain
CPT/HCPCS: 80053; 85652; 84484; 85025; 86140; 71275; 36415; Q9967

== ENCOUNTER → 2020-01-18 | Outpatient (CLI) | payer MEDICARE ==
--- NOTE | 2020-01-18 14:09 | US ---
EXAMINATION TYPE: US gallbladder DATE OF EXAM: 01/18/2020 COMPARISON: NONE CLINICAL HISTORY: 70-year-old female R93.8ABN FINDINGS ON DIAGNOSTIC TEST. Abnormal CT showed hydropi c gallbladder, patient is scheduling surgery for cholecystectomy TECHNIQUE: Multiple sonographic images of the right upper quadrant are obtained. FINDINGS: EXAM MEASUREMENTS: Liver Length: 14.1 cm Gallbladder Wall: 0.2 cm CBD: 5.6 mm Right Kidney: 9.4 x 4.6 x 5.1 cm Nurse Practical notes: overlying bowel gas limited study Pancreas: No gross abnormality. Liver: Homogeneous appearance without focal lesion. Gallbladder: Hydropic at 4.7 cm wide. No wall thickening, shadowing calculi, or surrounding fluid. Evidence for sonographic Benavides's sign: YES CBD: Within normal limits. Right Kidney: No hydronephrosis. IMPRESSION: Hydropic gallbladder measuring 4.7 cm wide. Sonographic Benavides sign is reported positive. No gallston es or other findings of acute cholecystitis. Consider biliary dyskinesia as a possible etiology. HIDA scan if indicated.
== END | disposition home or self-care (01) ==
LOC: RADUSWWP 12:57
PROVIDERS: ATTEND Family Medicine
DX: R93.89 Abnormal findings on diagnostic imaging of other specified body structures (principal)
CPT/HCPCS: 76705

== ENCOUNTER → 2020-02-11 | Outpatient (CLI) | payer MEDICARE | END | disposition home or self-care (01) | LOC: LABWHC1 10:52 | PROVIDERS: ATTEND Surgery | DX: U07.1 COVID-19 (principal) | CPT/HCPCS: U0003; C9803 ==

== ENCOUNTER 2020-02-16 11:41 | Day surgery (SDC) | payer MEDICARE ==
[2020-02-12 12:18] VITALS: BMI 26.6
[~2020-02-16 11:41] MED LIST changes: +DEXAMETHASONE SOD PHOSPHATE 10 MG/ML 1 ML VIAL IV ONE; -LACTATED RINGERS 1,000 ML IV SCH; -LIDOCAINE 1% 20 ML VIAL (10MG/ML) FOR IV START INTRADERMA PRN; +ONDANSETRON 4 MG/2 ML VIAL IVP ONE; +Pre Op ABX Message 1 EACH MISC MISCELLANE ONE
[2020-02-16] MEDS: LACTATED RINGERS 1,000 ML IV SCH (12:02)
[2020-02-16] MEDS ORDERED: ONDANSETRON 4 MG/2 ML VIAL ONE (12:13)
[2020-02-16] MEDS ORDERED: fentaNYL (PF) 50 MCG/ML 2 ML AMP IVP ONE (12:49)
[2020-02-16] MEDS ORDERED: BUPIVACAIN-EPI 0.25%-1:200,000 30 ML VIAL SQ ONE ×2 (13:31)
[2020-02-16] MEDS ORDERED: ePHEDrine SULFATE/0.9% NACL/PF 50 MG/5 ML SYRINGE IV ONE (13:42)
[2020-02-16] MEDS ORDERED: ROCURONIUM BROMIDE 10 MG/ML 5 ML VIAL IV ONE (13:42)
[2020-02-16] MEDS ORDERED: NEOSTIGMINE 1 MG/ML 10 ML VIAL ONE (13:42)
[2020-02-16] MEDS ORDERED: PROPOFOL 10 MG/ML 20 ML VIAL IV ONE (13:42)
[2020-02-16] MEDS ORDERED: MIDAZOLAM 2 MG/2 ML VIAL ONE (13:42)
[2020-02-16] MEDS ORDERED: LIDOCAINE 1% INJ 10MG/ML (20 ML MDV) ONE (13:42)
[2020-02-16] MEDS ORDERED: GLYCOPYRROLATE 0.2 MG/ML 2 ML VIAL ONE (13:42)
[2020-02-16] MEDS ORDERED: SUCCINYLCHOLINE CHLORIDE 100 MG/5 ML SYR IV ONE (13:42)
[2020-02-16] MEDS ORDERED: fentaNYL (PF) 50 MCG/ML 2 ML AMP ONE (13:42)
--- NOTE | 2020-02-16 14:39 | P.OP ---
Date of Procedure: 02/16/20 Preoperative Diagnosis: Hydrops of the gallbladder Postoperative Diagnosis: Hydrops of the gallbladder Procedure(s) Performed: Laparoscopic cholecystectomy Anesthesia: ANDREW Surgeon: Kaitlynn Neal Estimated Blood Loss (ml): 10 Pathology: other (Gallbladder) Condition: stable Disposition: PACU Indications for Procedure: Patient presented with a couple of imaging study showing hydrops of the gallbladder. Description of Procedure: The patient's taken the operative suite where she is prepped and draped in the usual sterile manner under general endotracheal anesthetic. An infraumbilical incision was made and a Veress needle was placed into the abdominal cavity. Pneumoperitoneum was established with CO2 gas. Sites are chosen for accessory trochars and these are placed through small skin incisions. The gallbladder is distended with no signs of acute inflammation. The liver, diaphragm, large and small bowel were otherwise normal where they were seen. The gallbladder is then grasped and retracted superiorly. Kaitlyn's pouch is identified, it is grasped and retracted laterally. The cystic artery and cystic duct are dissected free. They're triply clipped and cut. The gallbladder is then dissected free from the liver bed. Small bleeding points are controlled with electrocautery. The gallbladder is removed through the umbilical port site. The liver bed is reexamined and noted be hemostatic. The excess irrigant was suctioned out. The pneumoperitoneum was released. The trochars were removed. The fascia at the umbilicus was closed with 0 Vicryl. The skin incisions were closed with 4-0 Vicryl in a subcuticular manner. Steri-Strips and dressings were applied. She tolerated the procedure without difficulty and was taken to recovery room in satisfactory condition. According to or personnel, all counts were correct. Plan - Discharge Summary Discharge Rx Participant: Yes New Discharge Prescriptions: New traMADol HCL 50 mg PO Q6HR PRN #20 tablet PRN Reason: Pain No Action Multivitamins, Thera [Multivitamin (formulary)] 1 tab PO DAILY@0800 Levothyroxine Sodium [Synthroid] 25 mcg PO DAILY@0700 buPROPion XL [Wellbutrin XL] 450 mg PO DAILY@0800 lamoTRIgine [LaMICtal] 50 mg PO BID@0800,1800 Docusate [Colace] 100 mg PO HS@1800 clonazePAM [KlonoPIN] 0.75 mg PO TID@0800,1200,1800 Cholecalciferol [Vitamin D3 (25 Mcg = 1000 Iu)] 5,000 unit PO DAILY@0800 Menthol [Biofreeze] 1 applic TOPICAL BID PRN PRN Reason: Pain Lansoprazole [Prevacid] 30 mg PO DAILY PRN PRN Reason: gerd Docusate [Colace] 100 mg PO DAILY PRN PRN Reason: Constipation Rosuvastatin Calcium [Crestor] 5 mg PO HS@1800 Lansoprazole [Prevacid] 30 mg PO DAILY@0800 Losartan [Cozaar] 50 mg PO DAILY@0800 Magnesium 250 mg PO DAILY DULoxetine HCL [Cymbalta] 30 mg PO DAILY Ascorbic Acid [Vitamin C] 1,000 mg PO DAILY Moxifloxacin HCl [Avelox] 400 mg PO DAILY Discharge Medication List Levothyroxine Sodium [Synthroid] 25 mcg PO DAILY@0700 12/12/15 [History] Multivitamins, Thera [Multivitamin (formulary)] 1 tab PO DAILY@0800 12/12/15 [History] buPROPion XL [Wellbutrin XL] 450 mg PO DAILY@0800 03/25/18 [History] lamoTRIgine [LaMICtal] 50 mg PO BID@0800,1800 04/17/18 [History] Docusate [Colace] 100 mg PO HS@1800 04/30/18 [History] clonazePAM [KlonoPIN] 0.75 mg PO TID@0800,1200,1800 04/30/18 [History] Cholecalciferol [Vitamin D3 (25 Mcg = 1000 Iu)] 5,000 unit PO DAILY@0800 08/11/18 [History] Docusate [Colace] 100 mg PO DAILY PRN 08/08/19 [History] Lansoprazole [Prevacid] 30 mg PO DAILY PRN 08/08/19 [History] Lansoprazole [Prevacid] 30 mg PO DAILY@0800 08/08/19 [History] Losartan [Cozaar] 50 mg PO DAILY@0800 08/08/19 [History] Menthol [Biofreeze] 1 applic TOPICAL BID PRN 08/08/19 [History] Rosuvastatin Calcium [Crestor] 5 mg PO HS@1800 08/08/19 [History] Ascorbic Acid [Vitamin C] 1,000 mg PO DAILY 02/12/20 [History] DULoxetine HCL [Cymbalta] 30 mg PO DAILY 02/12/20 [History] Magnesium 250 mg PO DAILY 02/12/20 [History] Moxifloxacin HCl [Avelox] 400 mg PO DAILY 02/16/20 [History] traMADol HCL 50 mg PO Q6HR PRN #20 tablet 02/16/20 [Rx]
[2020-02-16] MEDS: HYDROmorphone 0.5 MG/0.5 ML SYRINGE IVP PRN ×2 (14:56→15:03)
[2020-02-16] MEDS ORDERED: MEPERIDINE 50 MG/ML SYRINGE IVP ONE (15:32)
[2020-02-16] MEDS ORDERED: diphenhydrAMINE 50 MG/ML 1 ML VIAL IVP ONE (15:33)
[2020-02-16] MEDS ORDERED: LACTATED RINGERS 1,000 ML IV ONE (15:36)
[2020-02-16] MEDS ORDERED: HYDROmorphone 0.5 MG/0.5 ML SYRINGE IM PRN (16:53)
[2020-02-16] MEDS ORDERED: HYDROmorphone 0.5 MG/0.5 ML SYRINGE IVP PRN (17:18)
[2020-02-16] MEDS: KETOROLAC 30 MG/ML 1 ML VIAL IVP SCH ×2 (17:37→23:39)
[2020-02-16] MEDS ORDERED: ATORVASTATIN 10 MG TAB PO SCH (21:31)
[2020-02-16] MEDS: clonazePAM 0.5 MG TAB PO SCH (21:55)
[2020-02-16] MEDS: lamoTRIgine 25 MG TAB PO SCH (22:16)
[2020-02-17] MEDS: LACTATED RINGERS 1,000 ML IV SCH (04:30)
[2020-02-17] MEDS: KETOROLAC 30 MG/ML 1 ML VIAL IVP SCH ×2 (05:09→12:25)
[2020-02-17] MEDS ORDERED: LEVOTHYROXINE 25 MCG TAB PO SCH (07:00)
[2020-02-17] MEDS: clonazePAM 0.5 MG TAB PO SCH ×2 (08:55→12:27)
[2020-02-17] MEDS: lamoTRIgine 25 MG TAB PO SCH (08:55)
--- NOTE | 2020-02-17 09:35 | P.PN ---
Progress Note - Text Progress Note Date: 02/17/20 The patient was kept overnight due to postoperative pain. She is feeling better today per nursing. The patient will be discharged home.
[2020-02-17] MEDS ORDERED: traMADol 50 MG TAB PO PRN (09:42)
[2020-02-17] MEDS ORDERED: ASCORBIC ACID 500 MG TAB PO SCH (09:45)
[2020-02-17] MEDS ORDERED: DULoxetine HCL 30 MG CAPSULE.DR PO SCH (09:45)
[2020-02-17] MEDS ORDERED: MAGNESIUM OXIDE 400 MG TAB PO SCH (09:45)
[2020-02-17 09:48] VITALS: BP 101/50; PULSE 79; RESP 12; TEMP 98.4
[2020-02-17] MEDS ORDERED: DOCUSATE 100 MG CAP PO SCH (18:00)
[2020-02-18] MEDS ORDERED: buPROPion XL 150 MG TAB.ER.24H PO SCH (08:00)
[2020-02-18] MEDS ORDERED: LOSARTAN 50 MG TAB PO SCH (08:00)
[2020-02-18] MEDS ORDERED: MULTIVITAMINS, THERA 1 EACH TAB PO SCH (08:00)
[2020-02-18] MEDS ORDERED: CHOLECALCIFEROL 1,000 UNIT TAB PO SCH (08:00)
== END 2020-02-17 12:39 | disposition home or self-care (01) ==
LOC: OR 11:41 → 1SOBS 16:52 → OR 02-17 12:39
PROVIDERS: ATTEND Surgery
DX: K81.1 Chronic cholecystitis (principal); K82.1 Hydrops of gallbladder; J44.9 Chronic obstructive pulmonary disease, unspecified; E07.9 Disorder of thyroid, unspecified; G51.0 Bell's palsy; K21.9 Gastro-esophageal reflux disease without esophagitis; G43.909 Migraine, unspecified, not intractable, without status migrainosus; F32.9 Major depressive disorder, single episode, unspecified; K52.9 Noninfective gastroenteritis and colitis, unspecified; M19.90 Unspecified osteoarthritis, unspecified site; F41.9 Anxiety disorder, unspecified; Z79.51 Long term (current) use of inhaled steroids; Z79.890 Hormone replacement therapy; Z79.899 Other long term (current) drug therapy; Z88.1 Allergy status to other antibiotic agents; Z88.6 Allergy status to analgesic agent; Z88.0 Allergy status to penicillin; Z85.840 Personal history of malignant neoplasm of eye; Z90.721 Acquired absence of ovaries, unilateral; Z80.1 Family history of malignant neoplasm of trachea, bronchus and lung; Z80.8 Family history of malignant neoplasm of other organs or systems; Z82.49 Family history of ischemic heart disease and other diseases of the circulatory system
CPT/HCPCS: 88304; 47562; J2250; J1200; J1100; J2710; J2175; J2405; J2001; J3010; J1885 ×2; J0330; J2704; J1170 ×2

== ENCOUNTER 2020-03-13 12:39 | Observation (INO) | payer MEDICARE ==
--- NOTE | 2020-03-13 12:58 | ED ---
Chest Pain HPI - General Chief Complaint: Chest Pain Stated Complaint: Chest pain Time Seen by Provider: 03/13/20 12:58 Source: patient, RN notes reviewed, old records reviewed Mode of arrival: ambulatory Limitations: no limitations - History of Present Illness Initial Comments: This is a 7-year-old female to the ER for evaluation patient does present to evaluate regards chest pain left-sided chest pain left shoulder pain. Tingling down the left arm. No recent travel history or sick contacts. Patient denies any fevers cough or congestion or shortness of breath she was little diaphoretic when she awoke with the pain today also had pain yesterday Complaint: chest pain -: days(s) Onset: during rest, during exertion, awoke with symptoms Pain Location: left chest Pain Radiation: LUE Severity: mild Severity scale (1-10): 3 Quality: tightness Consistency: constant Improves With: nothing Worsens With: nothing Context: other (Patient does admit to increased stress lately with the passing of her ) Anginal Symptoms: diaphoresis, dyspnea Other Symptoms: other (None) Treatments Prior to Arrival: none - Related Data Home Medications Medication Instructions Recorded Confirmed Levothyroxine Sodium [Synthroid] 25 mcg PO DAILY@69912/12/15 03/13/20 Multivitamins, Thera [Multivitamin 1 tab PO DAILY@79912/12/15 03/13/20 (formulary)] buPROPion XL [Wellbutrin XL] 450 mg PO DAILY@79903/25/18 03/13/20 lamoTRIgine [LaMICtal] 25 mg PO BID@0800,1800 04/17/18 03/13/20 clonazePAM [KlonoPIN] 0.75 mg PO TID@0800,1200,1800 04/30/18 03/13/20 Cholecalciferol [Vitamin D3 (25 5,000 unit PO DAILY@79908/11/18 03/13/20 Mcg = 1000 Iu)] Docusate [Colace] 200 mg PO DAILY PRN 08/08/19 03/13/20 Lansoprazole [Prevacid] 30 mg PO DAILY@79908/08/19 03/13/20 Losartan [Cozaar] 50 mg PO DAILY@79908/08/19 03/13/20 Rosuvastatin Calcium [Crestor] 5 mg PO HS@1800 08/08/19 03/13/20 DULoxetine HCL [Cymbalta] 30 mg PO DAILY 02/12/20 03/13/20 Magnesium Oxide [Diaz] 1,000 mg PO BID 03/13/20 03/13/20 Allergies Allergy/AdvReac Type Severity Reaction Status Date / Time amoxicillin [From Augmentin] Allergy Nausea Verified 03/13/20 14:11 clavulanic acid Allergy Nausea Verified 03/13/20 14:11 [From Augmentin] levofloxacin [From Levaquin] Allergy Swelling Verified 03/13/20 14:11 metronidazole [From Flagyl] Allergy Swelling Verified 03/13/20 14:11 naproxen [From Naprosyn] AdvReac passes out Verified 03/13/20 14:11 clear paper tape Allergy Rash/Hives Uncoded 02/16/20 12:04 Review of Systems ROS Statement: Those systems with pertinent positive or pertinent negative responses have been documented in the HPI. ROS Other: All systems not noted in ROS Statement are negative. EKG Findings - EKG Comments: EKG Findings:: EKG shows sinus rhythm 68 VA 148 QRS 90 QTC 399 Past Medical History Past Medical History: Cancer, COPD, GERD/Reflux, Pneumonia, Thyroid Disorder Additional Past Medical History / Comment(s): hx [place] Palsy affected lt side of face, hx. of colitis, diverticulitis, being worked up for parkinson's, tremors, past falls,left eye lid basal cell cancer-removed, past [id number], migraines-in past took depakote for them,"cluster headaches. Last migraine- December 2019. History of Any Multi-Drug Resistant Organisms: None Reported Past Surgical History: Orthopedic Surgery Additional Past Surgical History / Comment(s): left lower eyelid surgery (basal cell ca removed) x 2, left fallopian tube and ovary removed. BILAT WRIST SX, COLONOSCOPY, BILAT CATARACTS. Past Anesthesia/Blood Transfusion Reactions: Previous Problems w/ Anesthesia Additional Past Anesthesia/Blood Transfusion Reaction / Comment(s): Difficulty waking up after surgery. Past Psychological History: Anxiety, Depression Smoking Status: Former smoker Past Alcohol Use History: None Reported Past Drug Use History: None Reported - Past Family History Father Family Medical History: Cancer Additional Family Medical History / Comment(s): Brain Mother Additional Family Medical History / Comment(s): hx of lupus General Exam Limitations: no limitations General appearance: alert, in no apparent distress Head exam: Present: atraumatic, normocephalic, normal inspection Eye exam: Present: normal appearance, PERRL, EOMI. Absent: scleral icterus, conjunctival injection, periorbital swelling ENT exam: Present: normal exam, mucous membranes moist Neck exam: Present: normal inspection. Absent: tenderness, meningismus, lymphadenopathy Respiratory exam: Present: normal lung sounds bilaterally. Absent: respiratory distress, wheezes, rales, rhonchi, stridor Cardiovascular Exam: Present: regular rate, normal rhythm, normal heart sounds. Absent: systolic murmur, diastolic murmur, rubs, gallop, clicks GI/Abdominal exam: Present: soft, normal bowel sounds. Absent: distended, tenderness, guarding, rebound, rigid Extremities exam: Present: normal inspection, full ROM, normal capillary refill. Absent: tenderness, pedal edema, joint swelling, calf tenderness Back exam: Present: normal inspection Neurological exam: Present: alert, oriented X3, CN II-XII intact Psychiatric exam: Present: normal affect, normal mood Skin exam: Present: warm, dry, intact, normal color. Absent: rash Course Vital Signs 03/13/20 03/13/20 03/13/20 12:50 13:30 13:32 Temperature 98.0 F Pulse Rate 83 68 Pulse Rate [ 68 Twister In ] Respiratory 18 18 Rate Blood Pressure 116/73 128/70 O2 Sat by Pulse 98 97 Oximetry 03/13/20 14:42 Temperature 98.1 F Pulse Rate 65 Pulse Rate [ Twister In ] Respiratory 18 Rate Blood Pressure 132/72 O2 Sat by Pulse 100 Oximetry - Reevaluation(s) Reevaluation #1: 03/13/20 14:22 Medical records reviewed Reevaluation #2: 03/13/20 15:27 Travis does have occasional chest pain - Consultations Consultation #1: Spoke with Dr. Evans agrees to admit this patient Chest Pain MDM - MDM 70 female to the ER for evaluation of chest pain we will admit for chest pain observation at this time all cardiac markers with good EKG is negative Disposition Clinical Impression: Chest pain Disposition: ADMITTED IP TO THIS HOSP Condition: Fair Instructions (If sedation given, give patient instructions): Chest Pain (ED) Is patient prescribed a controlled substance at d/c from ED?: No Referrals: Diamante Bynum MD [Primary Care Provider] - 1-2 days
[2020-03-13 13:40] LABS: Basophils # (A) 0.1 k/uL (0-0.2); Basophils % (A) 1 %; Eosinophils # (A) 0.1 k/uL (0-0.7); Eosinophils % (A) 2 %; HCT 38.2 % (34.0-46.0); HGB 12.1 gm/dL (11.4-16.0); Lymphocytes # (A) 1.5 k/uL (1.0-4.8); Lymphocytes % (A) 29 %; MCH 28.4 pg (25.0-35.0); MCHC 31.6 g/dL (31.0-37.0); MCV 89.8 fL (80.0-100.0); Mean Platelet Volume 7.4; Monocytes # (A) 0.3 k/uL (0-1.0); Monocytes % (A) 6 %; Neutrophils # (A) 3.1 k/uL (1.3-7.7); Neutrophils % (A) 59 %; Platelet Count 259 k/uL (150-450); RBC 4.25 m/uL (3.80-5.40); RDW 12.8 % (11.5-15.5); WBC 5.3 k/uL (3.8-10.6)
[2020-03-13 13:48] LABS: Albumin 4.2 g/dL (3.5-5.0); Calcium 9.3 mg/dL (8.4-10.2); Magnesium 1.9 mg/dL (1.6-2.3); Potassium 5.1 mmol/L (3.5-5.1); Total Bilirubin 0.2 mg/dL (0.2-1.3); Total Protein 6.7 g/dL (6.3-8.2)
--- NOTE | 2020-03-13 14:07 | XR ---
EXAMINATION TYPE: XR chest 2V DATE OF EXAM: 03/13/2020 CLINICAL HISTORY: Chest pain. History of COPD. TECHNIQUE: Frontal and lateral views of the chest are obtained. COMPARISON: 08/08/2027 chest radiograph. FINDINGS: Mild flattening of the hemidiaphragms, most likely emphysematous change. The cardiomediast inal silhouette is within normal limits for size. Pulmonary vasculature is normal. There is no focal air space opacity, pleural effusion, or pneumothorax seen. The osseous structures are intact. IMPRESSION: No acute cardiopulmonary process.
[2020-03-13 14:09] LABS: INR 0.9 (<1.2); Prothrombin Time 9.5 sec (9.0-12.0)
[2020-03-13] MEDS ORDERED: NITROGLYCERIN SL TABS 0.4 MG TAB SUBLINGUAL PRN (15:24)
[2020-03-13] MEDS ORDERED: MORPHINE SULFATE 4 MG/ML SYRINGE IV PRN (15:24)
[2020-03-13] MEDS ORDERED: ASPIRIN 81 MG PO STA (15:24)
[2020-03-13] MEDS ORDERED: ACETAMINOPHEN TAB 500 MG TAB PO STA (15:45)
[2020-03-13] MEDS ORDERED: DOCUSATE 100 MG CAP PO PRN (17:10)
[2020-03-13] MEDS: lamoTRIgine 25 MG TAB PO SCH (17:51)
[2020-03-13] MEDS: clonazePAM 0.5 MG TAB PO SCH (17:52)
[2020-03-13] MEDS ORDERED: LOSARTAN 50 MG TAB PO SCH (18:00)
[2020-03-13] MEDS: ACETAMINOPHEN TAB 325 MG TAB PO PRN (18:08)
[2020-03-13] MEDS: MAGNESIUM OXIDE 400 MG TAB PO SCH (20:54)
[2020-03-13] MEDS: METOPROLOL TARTRATE 25 MG TAB PO SCH (20:54)
[2020-03-14 05:03] VITALS: TEMP 97.9
[2020-03-14] MEDS: ACETAMINOPHEN TAB 325 MG TAB PO PRN ×2 (05:08→14:10)
[2020-03-14 06:38] LABS: Cholesterol 163 mg/dL (<200); HDL Cholesterol 43 mg/dL (40-60); LDL Cholesterol,Calculated 79 mg/dL (0-99); Triglycerides 207 mg/dL (<150)
[2020-03-14] MEDS ORDERED: LEVOTHYROXINE 25 MCG TAB PO SCH (07:00)
[2020-03-14] MEDS ORDERED: MULTIVITAMINS, THERA 1 EACH TAB PO SCH (08:00)
[2020-03-14] MEDS ORDERED: CHOLECALCIFEROL 1,000 UNIT TAB PO SCH (08:00)
[2020-03-14] MEDS ORDERED: PANTOPRAZOLE 40 MG TABLET PO SCH (08:00)
[2020-03-14] MEDS ORDERED: ATORVASTATIN 10 MG TAB PO SCH (08:00)
[2020-03-14] MEDS ORDERED: buPROPion XL 150 MG TAB.ER.24H PO SCH (08:00)
[2020-03-14 08:05] VITALS: BP 128/80; PULSE 63; RESP 16
[2020-03-14] MEDS: MAGNESIUM OXIDE 400 MG TAB PO SCH (08:36)
[2020-03-14] MEDS: clonazePAM 0.5 MG TAB PO SCH ×2 (08:36→14:07)
[2020-03-14] MEDS: lamoTRIgine 25 MG TAB PO SCH (08:37)
[2020-03-14] MEDS ORDERED: ATORVASTATIN 80 MG TAB PO SCH (09:00)
[2020-03-14] MEDS ORDERED: ASPIRIN 325 MG TAB PO SCH (09:00)
[2020-03-14] MEDS ORDERED: DULoxetine HCL 30 MG CAPSULE.DR PO SCH (09:00)
[2020-03-14] MEDS: METOPROLOL TARTRATE 25 MG TAB PO SCH (10:13)
--- NOTE | 2020-03-14 10:34 | P.CRDCN ---
History of Present Illness History of present illness: HISTORY OF PRESENTING ILLNESS This is a pleasant 70-year-old female past medical history significant for COPD, dyslipidemia and hypertension. She follows in the office with Dr. Mariajose bryan. We have been asked to see in consultation for chest pain. She states she first felt a discomfort in the epigastric region while she was shopping on Saturday night. It was described as achy sensation that radiated up the midsternal region. She had no discomfort in the arm, back, neck or jaw. She had no associated shortness of breath, dizziness, palpitations, nausea, vomiting or diaphoresis. Then again when she woke up on Saturday morning she again felt the discomfort in the midsternal region and she felt like she was diaphoretic at that time. She noticed a discomfort in the left shoulder and tingling down her left arm. The symptoms were not related to activity or exertion. Her pain was exacerbated by deep inspiration. She continues to have discomfort when she takes a deep breath. Patient is very tearful at the time of my exam. She states she lost her one month ago at this hospital and is very anxious about being here. She underwent a stress echocardiogram in the office August 2019 she walked on the treadmill for 7 minutes and 45 seconds achieving target heart rate. The stress test was normal revealing no evidence of stress-induced ischemia. DIAGNOSTICS EKG reveals sinus mechanism with no acute ST or T wave abnormalities noted. Chest xray negative for an acute cardiopulmonary process. Laboratory reviewed, CBC unremarkable, sodium 138, potassium 5.1, creatinine 0.86, AST 135, ALT 51, cardiac enzymes negative 3, NT proBNP 93, LDL 79 and HDL 43. Current cardiac medications include rosuvastatin 5 mg daily and losartan 50 mg daily. REVIEW OF SYSTEMS At the time of my exam: CONSTITUTIONAL: Denies fever or chills. CARDIOVASCULAR: Denies chest pain, shortness of breath, orthopnea, PND or palpitations. RESPIRATORY: Denies cough. GASTROINTESTINAL: Denies abdominal pain, diarrhea, constipation, nausea or vomiting. MUSCULOSKELETAL: Denies myalgias. NEUROLOGIC: Denies numbness, tingling or weakness. ENDOCRINE: Denies fatigue, weight change, polydipsia or polyurina. GENITOURINARY: Denies burning, hematuria or urgency with micturation. HEMATOLOGIC: Denies history of anemia or bleeding. PHYSICAL EXAMINATION Blood pressure 128/80 heart rate 63 afebrile and maintaining oxygen saturation on room air. CONSTITUTIONAL: No apparent distress. HEENT: Head is normocephalic. Pupils are equal, round. Sclerae anicteric. Mucous membranes of the mouth are moist. No JVD. No carotid bruit. CHEST EXAMINATION: Lungs are clear to auscultation. No chest wall tenderness is noted on palpation or with deep breathing. HEART EXAMINATION: Regular rate and rhythm. S1, S2 heard. No murmurs, gallops or rub. ABDOMEN: Soft, nontender. Positive bowel sounds. EXTREMITIES: 2+ peripheral pulses, no lower extremity edema and no calf tenderness. NEUROLOGIC EXAMINATION: Patient is awake, alert and oriented x3. ASSESSMENT Chest pain, atypical. Hypertension Dyslipidemia PLAN An acute coronary event has been ruled out. Pain is atypical for angina with respirophasic features. He recommended increasing activity and ambulation and excess for exertional chest discomfort. Obtain 2-D echocardiogram to assess cardiac structure and function. Check a d-dimer. Recent stress test in the office was normal. Follow up in the office with Dr. Caro in 2 weeks. Nurse Practitioner note has been reviewed, I agree with a documented findings and plan of care. Patient was seen and examined. Past Medical History Past Medical History: Cancer, COPD, GERD/Reflux, Pneumonia, Thyroid Disorder Additional Past Medical History / Comment(s): hx [place] Palsy affected lt side of face, hx. of colitis, diverticulitis, being worked up for parkinson's, tremors, past falls,left eye lid basal cell cancer-removed, past [id number], migraines-in past took depakote for them,"cluster headaches. Last migraine- December 2019. History of Any Multi-Drug Resistant Organisms: None Reported Past Surgical History: Orthopedic Surgery Additional Past Surgical History / Comment(s): left lower eyelid surgery (basal cell ca removed) x 2, left fallopian tube and ovary removed. BILAT WRIST SX, COLONOSCOPY, BILAT CATARACTS. Past Anesthesia/Blood Transfusion Reactions: Previous Problems w/ Anesthesia Additional Past Anesthesia/Blood Transfusion Reaction / Comment(s): Difficulty waking up after surgery. Past Psychological History: Anxiety, Depression Smoking Status: Former smoker Past Alcohol Use History: None Reported Additional Past Alcohol Use History / Comment(s): QUIT SMOKING APPROX 2002, SMOKED 1 PPD FROM 1970 Past Drug Use History: None Reported - Past Family History Father Family Medical History: Cancer Additional Family Medical History / Comment(s): Brain Mother Additional Family Medical History / Comment(s): hx of lupus Medications and Allergies Home Medications Medication Instructions Recorded Confirmed Type Levothyroxine Sodium [Synthroid] 25 mcg PO DAILY@0700 12/12/15 03/13/20 History Multivitamins, Thera [Multivitamin 1 tab PO DAILY@0800 12/12/15 03/13/20 History (formulary)] buPROPion XL [Wellbutrin XL] 450 mg PO DAILY@0800 03/25/18 03/13/20 History lamoTRIgine [LaMICtal] 25 mg PO BID@0800,1800 04/17/18 03/13/20 History clonazePAM [KlonoPIN] 0.75 mg PO TID@0800,1200,1800 04/30/18 03/13/20 History Cholecalciferol [Vitamin D3 (25 5,000 unit PO DAILY@0800 08/11/18 03/13/20 History Mcg = 1000 Iu)] Docusate [Colace] 200 mg PO DAILY PRN 08/08/19 03/13/20 History Lansoprazole [Prevacid] 30 mg PO DAILY@0800 08/08/19 03/13/20 History Losartan [Cozaar] 50 mg PO DAILY@1800 08/08/19 03/13/20 History Rosuvastatin Calcium [Crestor] 5 mg PO DAILY@0800 08/08/19 03/13/20 History DULoxetine HCL [Cymbalta] 30 mg PO DAILY 02/12/20 03/13/20 History Magnesium Oxide [Diaz] 1,000 mg PO BID 03/13/20 03/13/20 History Allergies Allergy/AdvReac Type Severity Reaction Status Date / Time amoxicillin [From Augmentin] Allergy Nausea Verified 03/13/20 14:11 clavulanic acid Allergy Nausea Verified 03/13/20 14:11 [From Augmentin] levofloxacin [From Levaquin] Allergy Swelling Verified 03/13/20 14:11 metronidazole [From Flagyl] Allergy Swelling Verified 03/13/20 14:11 naproxen [From Naprosyn] AdvReac passes out Verified 03/13/20 14:11 clear paper tape Allergy Rash/Hives Uncoded 02/16/20 12:04 Physical Exam Vitals: Vital Signs Temp Pulse Pulse Pulse Resp BP BP 03/14/20 08:04 97.9 F 63 16 128/80 03/14/20 04:25 97.9 F 61 18 109/70 03/13/20 20:50 98.0 F 83 18 114/68 03/13/20 16:55 03/13/20 16:22 97.5 F L 64 14 135/84 03/13/20 15:43 65 18 132/83 03/13/20 14:42 98.1 F 65 18 132/72 03/13/20 13:32 68 18 128/70 03/13/20 13:30 68 03/13/20 12:50 98.0 F 83 18 116/73 Pulse Ox 03/14/20 08:04 96 03/14/20 04:25 93 L 03/13/20 20:50 94 L 03/13/20 16:55 99 03/13/20 16:22 98 03/13/20 15:43 100 03/13/20 14:42 100 03/13/20 13:32 97 03/13/20 13:30 03/13/20 12:50 98 Intake and Output 03/13/20 03/14/20 03/14/20 22:59 06:59 14:59 Other: Voiding Method Toilet Toilet Toilet # Voids 1 2 2 Weight 73.936 kg Results 03/13/20 13:29 03/13/20 13:29 Cardiac Enzymes 03/13/20 03/13/20 03/13/20 Range/Units 13:29 13:29 17:03 AST 135 H (14-36) U/L Troponin I <0.012 <0.012 (0.000-0.034) ng/mL 03/13/20 Range/Units 19:49 AST (14-36) U/L Troponin I <0.012 (0.000-0.034) ng/mL Coagulation 03/13/20 Range/Units 13:29 PT 9.5 (9.0-12.0) sec APTT 20.0 L (22.0-30.0) sec Lipids 03/14/20 Range/Units 05:40 Triglycerides 207 H (<150) mg/dL Cholesterol 163 (<200) mg/dL HDL Cholesterol 43 (40-60) mg/dL CBC 03/13/20 Range/Units 13:29 WBC 5.3 (3.8-10.6) k/uL RBC 4.25 (3.80-5.40) m/uL Hgb 12.1 (11.4-16.0) gm/dL Hct 38.2 (34.0-46.0) % Plt Count 259 (150-450) k/uL Comprehensive Metabolic Panel 03/13/20 Range/Units 13:29 Sodium 138 (137-145) mmol/L Potassium 5.1 (3.5-5.1) mmol/L Chloride 107 (98-107) mmol/L Carbon Dioxide 24 (22-30) mmol/L BUN 19 H (7-17) mg/dL Creatinine 0.86 (0.52-1.04) mg/dL Glucose 89 (74-99) mg/dL Calcium 9.3 (8.4-10.2) mg/dL AST 135 H (14-36) U/L ALT 51 H (4-34) U/L Alkaline Phosphatase 94 (38-126) U/L Total Protein 6.7 (6.3-8.2) g/dL Albumin 4.2 (3.5-5.0) g/dL Current Medications Generic Name Dose Route Start Last Admin Trade Name Kaiq PRN Reason Stop Dose Admin Acetaminophen 650 mg 03/13/20 18:00 03/14/20 05:08 Tylenol Tab PO 650 mg Q4HR PRN Administration Fever and/ or Mild Pain Aspirin 325 mg 03/14/20 09:00 03/14/20 08:36 Aspirin PO 325 mg DAILY [facility] Administration Atorvastatin Calcium 10 mg 03/14/20 08:00 03/14/20 08:35 Lipitor PO 10 mg DAILY@0800 [facility] Administration Bupropion HCl 450 mg 03/14/20 08:00 03/14/20 08:37 Wellbutrin Xl PO 450 mg DAILY@0800 [facility] Administration Cholecalciferol 5,000 unit 03/14/20 08:00 03/14/20 08:35 Vitamin D3 (25 Mcg = 1000 Iu) PO 5,000 unit DAILY@0800 [facility] Administration Clonazepam 0.75 mg 03/13/20 18:00 03/14/20 08:36 Klonopin PO 0.75 mg TID@0800,1200,1800 [facility] Administration Docusate Sodium 200 mg 03/13/20 17:10 Colace PO DAILY PRN Constipation Duloxetine HCl 30 mg 03/14/20 09:00 03/14/20 08:38 Cymbalta PO 30 mg DAILY [facility] Administration Lamotrigine 25 mg 03/13/20 18:00 03/14/20 08:37 Lamictal PO 25 mg BID@0800,1800 [facility] Administration Levothyroxine Sodium 25 mcg 03/14/20 07:00 03/14/20 06:02 Synthroid PO 25 mcg DAILY@0700 [facility] Administration Losartan Potassium 50 mg 03/13/20 18:00 03/13/20 17:50 Cozaar PO 50 mg DAILY@1800 [facility] Administration Magnesium Oxide 800 mg 03/13/20 21:00 03/14/20 08:36 Mag-Ox PO 800 mg BID [facility] Administration Metoprolol Tartrate 25 mg 03/13/20 21:00 03/14/20 10:13 Lopressor PO 25 mg BID [facility] Administration Morphine Sulfate 4 mg 03/13/20 15:24 Morphine Sulfate (Inj) IV Q4HR PRN Chest Pain Multivitamins 1 each 03/14/20 08:00 03/14/20 08:36 Theragran PO 1 each DAILY@0800 [facility] Administration Nitroglycerin 0.4 mg 03/13/20 15:24 Nitrostat SUBLINGUAL Q5M PRN Chest Pain Pantoprazole Sodium 40 mg 03/14/20 08:00 03/14/20 08:37 Protonix PO 40 mg DAILY@0800 [facility] Administration Intake and Output 03/13/20 03/14/20 03/14/20 22:59 06:59 14:59 Other: Voiding Method Toilet Toilet Toilet # Voids 1 2 2 Weight 73.936 kg 03/13/20 13:29 03/13/20 13:29
--- NOTE | 2020-03-14 11:32 | ECHOF ---
Referral Reason:cp MEASUREMENTS -------- HEIGHT: 167.6 cm WEIGHT: 73.9 kg BP: 128/80 RVIDd: 3.1 cm (< 3.3) IVSd: 1.0 cm (0.6 - 1.1) LVIDd: 4.1 cm (3.9 - 5.3) LVPWd: 1.1 cm (0.6 - 1.1) IVSs: 1.6 cm LVIDs: 2.5 cm LVPWs: 1.8 cm LA Diam: 3.4 cm (2.7 - 3.8) LAESV Index (A-L): 23.78 ml/m Ao Diam: 3.2 cm (2.0 - 3.7) AV Cusp: 2.2 cm (1.5 - 2.6) MV EXCURSION: 18.872 mm (> 18.000) MV EF SLOPE: 130 mm/s (70 - 150) EPSS: 0.7 cm MV E Martinez: 0.85 m/s MV DecT: 132 ms MV A Martinez: 0.89 m/s MV E/A Ratio: 0.96 RAP: 5.00 mmHg RVSP: 28.02 mmHg FINDINGS -------- Sinus rhythm. This was a technically good study. The left ventricular size is normal. There is borderline concentric left ventricular hypertrophy. Overall left ventricular systolic function is normal with, an EF between 60 - 65 %. The right ventricle is normal in size. Normal LA size by volume 22+/-6 ml/m2. The right atrium is normal in size. Interatrial and interventricular septum intact. The aortic valve is trileaflet and appears structurally normal. Mild mitral regurgitation is present. Mild tricuspid regurgitation present. Right ventricular systolic pressure is normal at < 35 mmHg. Trace/mild (physiologic) pulmonic regurgitation. The aortic root size is normal. Normal inferior vena cava with normal inspiratory collapse consistent with estimated right atrial pre ssure of 5 mmHg. There is no pericardial effusion. CONCLUSIONS -------- 1. The left ventricular size is normal. 2. There is borderline concentric left ventricular hypertrophy. 3. Overall left ventricular systolic function is normal with, an EF between 60 - 65 %. 4. Mild mitral regurgitation is present. 5. Mild tricuspid regurgitation present. 6. Trace/mild (physiologic) pulmonic regurgitation. 7. There is no pericardial effusion. FRENCH DRAWER: Zandra Calvin RDCS
--- NOTE | 2020-03-14 20:01 | P.HPIM ---
History of Present Illness H&P Date: 03/14/20 Dee Ellison, is a 70-year-old female who presented to [facility] emergency room with a chief complaint of chest pain she was evaluated in the emergency room, EKG was normal, first troponin level was normal, patient was admitted to telemetry floor for further evaluation and treatment, cardiology consultation was requested, patient describes a pressure sensation in the middle of her chest, there was no radiation of the pain to the neck or the shoulder, no accompanying nausea vomiting shortness of breath or diaphoresis. Past Medical History Past Medical History: Cancer, COPD, GERD/Reflux, Pneumonia, Thyroid Disorder Additional Past Medical History / Comment(s): hx [place] Palsy affected lt side of face, hx. of colitis, diverticulitis, being worked up for parkinson's, tremors, past falls,left eye lid basal cell cancer-removed, past [id number], migraines-in past took depakote for them,"cluster headaches. Last migraine- December 2019. History of Any Multi-Drug Resistant Organisms: None Reported Past Surgical History: Orthopedic Surgery Additional Past Surgical History / Comment(s): left lower eyelid surgery (basal cell ca removed) x 2, left fallopian tube and ovary removed. BILAT WRIST SX, COLONOSCOPY, BILAT CATARACTS. Past Anesthesia/Blood Transfusion Reactions: Previous Problems w/ Anesthesia Additional Past Anesthesia/Blood Transfusion Reaction / Comment(s): Difficulty w aking up after surgery. Past Psychological History: Anxiety, Depression Smoking Status: Former smoker Past Alcohol Use History: None Reported Additional Past Alcohol Use History / Comment(s): QUIT SMOKING APPROX 2002, SMOKED 1 PPD FROM 1970 Past Drug Use History: None Reported - Past Family History Father Family Medical History: Cancer Additional Family Medical History / Comment(s): Brain Mother Additional Family Medical History / Comment(s): hx of lupus Medications and Allergies Home Medications Medication Instructions Recorded Confirmed Type Levothyroxine Sodium [Synthroid] 25 mcg PO DAILY@69912/12/15 03/13/20 History Multivitamins, Thera [Multivitamin 1 tab PO DAILY@79912/12/15 03/13/20 History (formulary)] buPROPion XL [Wellbutrin XL] 450 mg PO DAILY@79903/25/18 03/13/20 History lamoTRIgine [LaMICtal] 25 mg PO BID@0800,1800 04/17/18 03/13/20 History clonazePAM [KlonoPIN] 0.75 mg PO TID@0800,1200,1800 04/30/18 03/13/20 History Cholecalciferol [Vitamin D3 (25 5,000 unit PO DAILY@0800 08/11/18 03/13/20 History Mcg = 1000 Iu)] Docusate [Colace] 200 mg PO DAILY PRN 08/08/19 03/13/20 History Lansoprazole [Prevacid] 30 mg PO DAILY@0800 08/08/19 03/13/20 History Losartan [Cozaar] 50 mg PO DAILY@1800 08/08/19 03/13/20 History Rosuvastatin Calcium [Crestor] 5 mg PO DAILY@79908/08/19 03/13/20 History DULoxetine HCL [Cymbalta] 30 mg PO DAILY 02/12/20 03/13/20 History Magnesium Oxide [Diaz] 1,000 mg PO BID 03/13/20 03/13/20 History Metoprolol Tartrate [Lopressor] 25 mg PO BID tab 03/14/20 Rx Nitroglycerin Sl Tabs [Nitrostat] 0.4 mg SUBLINGUAL Q5M PRN tab 03/14/20 Rx Allergies Allergy/AdvReac Type Severity Reaction Status Date / Time amoxicillin [From Augmentin] Allergy Nausea Verified 03/13/20 14:11 clavulanic acid Allergy Nausea Verified 03/13/20 14:11 [From Augmentin] levofloxacin [From Levaquin] Allergy Swelling Verified 03/13/20 14:11 metronidazole [From Flagyl] Allergy Swelling Verified 03/13/20 14:11 naproxen [From Naprosyn] AdvReac passes out Verified 03/13/20 14:11 clear paper tape Allergy Rash/Hives Uncoded 02/16/20 12:04 Physical Exam Vitals: Vital Signs Temp Pulse Pulse Pulse Resp BP BP 03/14/20 08:04 97.9 F 63 16 128/80 03/14/20 04:25 97.9 F 61 18 109/70 03/13/20 20:50 98.0 F 83 18 114/68 03/13/20 16:55 03/13/20 16:22 97.5 F L 64 14 135/84 03/13/20 15:43 65 18 132/83 03/13/20 14:42 98.1 F 65 18 132/72 03/13/20 13:32 68 18 128/70 03/13/20 13:30 68 03/13/20 12:50 98.0 F 83 18 116/73 Pulse Ox 03/14/20 08:04 96 03/14/20 04:25 93 L 03/13/20 20:50 94 L 03/13/20 16:55 99 03/13/20 16:22 98 03/13/20 15:43 100 03/13/20 14:42 100 03/13/20 13:32 97 03/13/20 13:30 03/13/20 12:50 98 Intake and Output 03/13/20 03/14/20 03/14/20 22:59 06:59 14:59 Other: Voiding Method Toilet Toilet Toilet # Voids 1 2 2 Weight 73.936 kg In general patient is alert and oriented 3 in no apparent distress HEENT head normocephalic and atraumatic Neck is supple no JVD no goiter no lymphadenopathy no carotid bruit Chest exam reveals a few scattered rhonchi no wheezing Cardiac exam reveals regular heart sounds S1 and S2 no gallops no murmurs Abdomen is soft nontender no organomegaly with normal bowel sounds Extremity exam reveals no edema no cyanosis or clubbing Neurological examination reveals no gross focal deficit Results CBC & Chem 7: 03/13/20 13:29 03/13/20 13:29 Labs: Abnormal Lab Results - Last 24 Hours (Table) 03/13/20 03/13/20 03/14/20 Range/Units 13:29 13:29 05:40 APTT 20.0 L (22.0-30.0) sec BUN 19 H (7-17) mg/dL AST 135 H (14-36) U/L ALT 51 H (4-34) U/L Triglycerides 207 H (<150) mg/dL Thrombosis Risk Factor Assmnt - Choose All That Apply Any of the Below Risk Factors Present?: No Other Risk Factors: Yes Each Risk Factor Represents 2 Points: Age 61-74 years Thrombosis Risk Factor Assessment Total Risk Factor Score: 2 Thrombosis Risk Factor Assessment Level: Low Risk Assessment and Plan Plan: 1. Episode of chest pain, with normal EKG and normal cardiac enzyme, patient was admitted for observation cardiology consultation was requested 2. Underlying history of hypertension 3. Underlying history of hyperlipidemia 4. Underlying history of hypothyroidism 5. Underlying history of depression with anxiety disorder At this time patient is admitted to telemetry floor cardiology consultation was requested home medications were reviewed and reordered will follow closely
--- NOTE | 2020-03-14 20:04 | P.DS ---
Providers Date of admission: 03/13/20 15:24 Expected date of discharge: 03/14/20 Attending physician: Gonsalo Evans Consults: 03/13/20 15:24 Consult Physician Urgent Consulting Provider: La Thompson Consult Reason/Comments: cp Do you want consulting provider notified?: Yes Primary care physician: Diamante Bynum Hospital Course: Diagnosis on discharge: 1. Episode of chest pain, with normal EKG and normal cardiac enzyme, patient was admitted for observation cardiology consultation was requested 2. Underlying history of hypertension 3. Underlying history of hyperlipidemia 4. Underlying history of hypothyroidism 5. Underlying history of depression with anxiety disorder Hospital course: Dee Ellison, is a 70-year-old female who presented to [facility] emergency room with a chief complaint of chest pain she was evaluated in the emergency room, EKG was normal, first troponin level was normal, patient was admitted to telemetry floor for further evaluation and treatment, cardiology consultation was requested, patient describes a pressure sensation in the middle of her chest, there was no radiation of the pain to the neck or the shoulder, no accompanying nausea vomiting shortness of breath or diaphoresis. On 03/14/2020 patient was seen and examined on the medical floor she is alert and oriented 3 in no apparent distress there is no fever or chills no headache or dizziness no chest pain no shortness of breath no cough no nausea or vomiting no abdominal pain no diarrhea no burning with urination no frequency or urgency and no hematuria and has resolved 3 sets of cardiac enzymes and d-dimer are negative patient was cleared by cardiology for discharge she recently had a st ress test which was negative patient was discharged home today she would follow up with her primary care physician Dr. Bynum and with her central station operator Dr. LUCRETIA Caro as outpatient Patient Condition at Discharge: Fair Plan - Discharge Summary Discharge Rx Participant: No New Discharge Prescriptions: New Metoprolol Tartrate [Lopressor] 25 mg PO BID tab Nitroglycerin Sl Tabs [Nitrostat] 0.4 mg SUBLINGUAL Q5M PRN tab PRN Reason: Chest Pain Continue Multivitamins, Thera [Multivitamin (formulary)] 1 tab PO DAILY@0800 Levothyroxine Sodium [Synthroid] 25 mcg PO DAILY@0700 buPROPion XL [Wellbutrin XL] 450 mg PO DAILY@0800 lamoTRIgine [LaMICtal] 25 mg PO BID@0800,1800 clonazePAM [KlonoPIN] 0.75 mg PO TID@0800,1200,1800 Cholecalciferol [Vitamin D3 (25 Mcg = 1000 Iu)] 5,000 unit PO DAILY@0800 Docusate [Colace] 200 mg PO DAILY PRN PRN Reason: Constipation Rosuvastatin Calcium [Crestor] 5 mg PO DAILY@0800 Lansoprazole [Prevacid] 30 mg PO DAILY@0800 Losartan [Cozaar] 50 mg PO DAILY@1800 DULoxetine HCL [Cymbalta] 30 mg PO DAILY Magnesium Oxide [Diaz] 1,000 mg PO BID Discharge Medication List Levothyroxine Sodium [Synthroid] 25 mcg PO DAILY@0700 12/12/15 [History] Multivitamins, Thera [Multivitamin (formulary)] 1 tab PO DAILY@0800 12/12/15 [History] buPROPion XL [Wellbutrin XL] 450 mg PO DAILY@0800 03/25/18 [History] lamoTRIgine [LaMICtal] 25 mg PO BID@0800,1800 04/17/18 [History] clonazePAM [KlonoPIN] 0.75 mg PO TID@0800,1200,1800 04/30/18 [History] Cholecalciferol [Vitamin D3 (25 Mcg = 1000 Iu)] 5,000 unit PO DAILY@0800 08/11/18 [History] Docusate [Colace] 200 mg PO DAILY PRN 08/08/19 [History] Lansoprazole [Prevacid] 30 mg PO DAILY@0800 08/08/19 [History] Losartan [Cozaar] 50 mg PO DAILY@1800 08/08/19 [History] Rosuvastatin Calcium [Crestor] 5 mg PO DAILY@0800 08/08/19 [History] DULoxetine HCL [Cymbalta] 30 mg PO DAILY 02/12/20 [History] Magnesium Oxide [Diaz] 1,000 mg PO BID 03/13/20 [History] Metoprolol Tartrate [Lopressor] 25 mg PO BID tab 03/14/20 [Rx] Nitroglycerin Sl Tabs [Nitrostat] 0.4 mg SUBLINGUAL Q5M PRN tab 03/14/20 [Rx] Follow up Appointment(s)/Referral(s): Jelani Caro MD [STAFF PHYSICIAN] - 03/25/20 11:30 am (please keep your appointment on 03/25/2020 at 1130 ) Diamante Bynum MD [Primary Care Provider] - 03/15/20 4:00 pm Patient Instructions/Handouts: Chest Pain (GEN)
== END 2020-03-14 15:26 ==
LOC: EC 12:39 → 3NCARDOBS 15:24
PROVIDERS: ADMIT Internal Medicine; ATTEND Internal Medicine
DX: R07.89 Other chest pain (principal); R61 Generalized hyperhidrosis; R20.2 Paresthesia of skin; M25.512 Pain in left shoulder; I10 Essential (primary) hypertension; E78.5 Hyperlipidemia, unspecified; E03.9 Hypothyroidism, unspecified; F32.9 Major depressive disorder, single episode, unspecified; F41.9 Anxiety disorder, unspecified; K59.00 Constipation, unspecified; J44.9 Chronic obstructive pulmonary disease, unspecified; K21.9 Gastro-esophageal reflux disease without esophagitis; G51.0 Bell's palsy; G43.909 Migraine, unspecified, not intractable, without status migrainosus; Z87.01 Personal history of pneumonia (recurrent); Z87.19 Personal history of other diseases of the digestive system; Z91.81 History of falling; Z87.440 Personal history of urinary (tract) infections; Z85.828 Personal history of other malignant neoplasm of skin; Z87.891 Personal history of nicotine dependence; Z80.8 Family history of malignant neoplasm of other organs or systems; Z82.69 Family history of other diseases of the musculoskeletal system and connective tissue; Z79.890 Hormone replacement therapy; Z79.899 Other long term (current) drug therapy; Z88.1 Allergy status to other antibiotic agents; Z88.0 Allergy status to penicillin; Z88.8 Allergy status to other drugs, medicaments and biological substances; Z91.048 Other nonmedicinal substance allergy status; Z63.4 Disappearance and death of family member
CPT/HCPCS: 93005 ×2; 99285; 36415; 93306; 85379; 83880; 80061; 80053; 83690; 83735; 84484; 85025; 85610; 85730; 71046; G0378 ×2

== ENCOUNTER → 2020-05-31 | Outpatient (CLI) | payer MEDICARE ==
--- NOTE | 2020-06-02 11:49 | MM ---
Reason for exam: screening (asymptomatic). Last mammogram was performed 1 year and 6 months ago. History: Patient is postmenopausal and history of other cancer. Family history of breast cancer in paternal cousin at age 71 and breast cancer in sister at age 74. Physical Findings: A clinical breast exam by your physician is recommended on an annual basis and results should be correlated with mammographic findings. MG 3D Screening Mammo W/Cad Bilateral CC and MLO view(s) were taken. Prior study comparison: December 10, 2018, bilateral MG 3d diag mammo w/cad TR. April 21, 2018, right breast MG 3d diag mammo w/cad RT. There are scattered fibroglandular densities. No significant changes when compared with prior studies. ASSESSMENT: Benign, BI-RAD 2 RECOMMENDATION: Routine screening mammogram of both breasts in 1 year.
== END | disposition home or self-care (01) ==
LOC: RADMAMWWP 12:58
PROVIDERS: ATTEND Family Medicine
DX: Z12.31 Encounter for screening mammogram for malignant neoplasm of breast (principal)
CPT/HCPCS: 77063; 77067

== ENCOUNTER → 2020-08-01 | Outpatient (CLI) | payer MEDICARE ==
--- NOTE | 2020-08-01 15:07 | CT ---
EXAMINATION TYPE: CT chest w con DATE OF EXAM: 08/01/2020 COMPARISON: Prior CTs December 29, 2019 and August 07, 2018 HISTORY: Lung nodule CT DLP: 262.4 mGycm. Automated Exposure Control for Dose Reduction was Utilized. TECHNIQUE: CT scan of the thorax is performed following with IV Contrast, patient injected with 80 m L of Isovue 300. FINDINGS: LUNGS: Background Mild underlying emphysematous change redemonstrated. Interval resolution of focal r ight upper lobe groundglass opacities. No new or enlarging greater than 4 mm pulmonary nodules. No pl eural effusion or pneumothorax. MEDIASTINUM: There are no greater than 1 cm hilar or mediastinal lymph nodes. No cardiomegaly or pe ricardial effusion is seen. Better visualization of roughly 1.0 cm right thyroid nodule image 39. OTHER: Cholecystectomy clips are redemonstrated. Spine is straightened with mild to moderate multilev el spurring. IMPRESSION: No new or enlarging nodules.
== END | disposition home or self-care (01) ==
LOC: RADCTMAIN 13:06
PROVIDERS: ATTEND Family Medicine
DX: R91.1 Solitary pulmonary nodule (principal)
CPT/HCPCS: 82565; 84520; 71260; 36415; Q9967

== ENCOUNTER → 2021-08-15 | Outpatient (CLI) | payer MEDICARE ==
--- NOTE | 2021-08-15 15:00 | XR ---
EXAMINATION TYPE: XR Hip Complete RT DATE OF EXAM: 08/15/2021 CLINICAL HISTORY: Right hip pain and popping. History of arthritis. TECHNIQUE: AP and frogleg views of the right hip are obtained. COMPARISON: CT pelvis October 17, 2018 FINDINGS: There is no acute fracture/dislocation evident in the right hip. I have axial joint space loss with mild to moderate acetabular spurring is redemonstrated. The overlying soft tissue appears unremarkable. IMPRESSION: As above. No significant change from [address] CT.
== END | disposition home or self-care (01) ==
LOC: RADXRMAIN 14:30
PROVIDERS: ATTEND Family Medicine
DX: M25.751 Osteophyte, right hip (principal); M25.851 Other specified joint disorders, right hip
CPT/HCPCS: 73502

== ENCOUNTER 2021-10-04 13:36 | Inpatient (IN) | payer MEDICARE ==
[2021-10-04] MEDS ORDERED: Acetaminophen-Codeine 300-30mg TAB PO STA (14:55)
[2021-10-04] MEDS ORDERED: SODIUM CHLORIDE 0.9% 1,000 ML IV STA (14:55)
[2021-10-04 15:23] LABS: Basophils # (A) 0.1 k/uL (0-0.2); Basophils % (A) 0 %; Eosinophils # (A) 0.2 k/uL (0-0.7); Eosinophils % (A) 1 %; HCT 34.5 % (34.0-46.0); HGB 11.1 gm/dL (11.4-16.0); Lymphocytes # (A) 1.1 k/uL (1.0-4.8); Lymphocytes % (A) 7 %; MCHC 32.1 g/dL (31.0-37.0); MCV 93.3 fL (80.0-100.0); Monocytes # (A) 0.8 k/uL (0-1.0); Monocytes % (A) 5 %; Neutrophils # (A) 13.8 k/uL (1.3-7.7); Neutrophils % (A) 85 %; Platelet Count 282 k/uL (150-450); RBC 3.69 m/uL (3.80-5.40); RDW 12.2 % (11.5-15.5); WBC 16.3 k/uL (3.8-10.6)
[2021-10-04 15:32] LABS: ALT 58 U/L (4-34); AST 107 U/L (14-36); African American GFR (CKD) 28 (>60 ml/min/1.73 sqM); Albumin 3.5 g/dL (3.5-5.0); Alkaline Phosphatase 194 U/L (38-126); Anion Gap 13 mmol/L; Blood Urea Nitrogen 24 mg/dL (7-17); Calcium 8.7 mg/dL (8.4-10.2); Carbon Dioxide 21 mmol/L (22-30); Chloride 99 mmol/L (98-107); Glucose 99 mg/dL (74-99); Non-African American GFR(CKD) 24 (>60 ml/min/1.73 sqM); Potassium 3.7 mmol/L (3.5-5.1); Sodium 133 mmol/L (137-145); Total Bilirubin 0.5 mg/dL (0.2-1.3); Total Protein 6.3 g/dL (6.3-8.2)
--- NOTE | 2021-10-04 15:52 | ED ---
Fever HPI - General Chief Complaint: Fever Stated Complaint: fever, body aches Source: patient Mode of arrival: wheelchair - History of Present Illness Initial Comments: 71-year-old female with past medical history of fibromyalgia, COPD, thyroid disorder presents to the emergency department with generalized body aches, fevers and nonproductive cough. States her symptoms have been present for the past week. She was in [place] with her family when she became sick. She took a home Covid test which was negative. She has been taking Motrin and Tylenol for her pain. States that she has not had any Tylenol and about 7 hours. Denies any chest pain. Does admit to mild shortness of breath. No changes in her urination or bowel habits. Does have flank pain. Denies any abdominal pain. No vomiting. Has had lack of appetite. No other alleviating, precipitating or modifying factors - Related Data Home Medications Medication Instructions Recorded Confirmed Levothyroxine Sodium [Synthroid] 25 mcg PO DAILY 12/12/15 10/04/21 Multivitamins, Thera [Multivitamin 1 tab PO DAILY 12/12/15 10/04/21 (formulary)] buPROPion XL [Wellbutrin XL] 450 mg PO DAILY 03/25/18 10/04/21 lamoTRIgine [LaMICtal] 50 mg PO BID@0800,1800 04/17/18 10/04/21 clonazePAM [KlonoPIN] 0.75 mg PO TID@0900,1200,1800 04/30/18 10/04/21 Docusate [Colace] 100 mg PO BID PRN 08/08/19 10/04/21 Lansoprazole [Prevacid] 30 mg PO DAILY 08/08/19 10/04/21 Losartan [Cozaar] 50 mg PO DAILY 08/08/19 10/04/21 Rosuvastatin Calcium [Crestor] 5 mg PO HS@1800 08/08/19 10/04/21 DULoxetine HCL [Cymbalta] 30 mg PO DAILY 02/12/20 10/04/21 Cholecalciferol (Vitamin D3) 125 mcg PO DAILY 10/04/21 10/04/21 [Vitamin D3 (125 MCG = 5,000 IU)] Metoprolol Tartrate [Lopressor] 25 mg PO BID@0900,1800 10/04/21 10/04/21 Nitroglycerin Sl Tabs [Nitrostat] 0.4 mg SL Q5M PRN 10/04/21 10/04/21 Olopatadine HCl [Pataday Once 1 drop BOTH EYES DAILY 10/04/21 10/04/21 Daily Relief] Previous Rx's Medication Instructions Recorded Cefuroxime Axetil [Ceftin] 500 mg PO BID 7 Days #14 tab 10/08/21 Allergies Allergy/AdvReac Type Severity Reaction Status Date / Time levofloxacin [From Levaquin] Allergy Swelling Verified 10/04/21 17:16 metronidazole [From Flagyl] Allergy Swelling Verified 10/04/21 17:16 amoxicillin [From Augmentin] AdvReac Nausea Verified 10/04/21 17:16 clavulanic acid AdvReac Nausea Verified 10/04/21 17:16 [From Augmentin] naproxen [From Naprosyn] AdvReac passes out Verified 10/04/21 17:16 clear paper tape Allergy Rash/Hives Uncoded 10/04/21 17:16 Review of Systems ROS Statement: Those systems with pertinent positive or pertinent negative responses have been documented in the HPI. ROS Other: All systems not noted in ROS Statement are negative. Past Medical History Past Medical History: Cancer, COPD, GERD/Reflux, Pneumonia, Thyroid Disorder Additional Past Medical History / Comment(s): hx [place] Palsy affected lt side of face, hx. of colitis, diverticulitis, being worked up for parkinson's, tremors, past falls,left eye lid basal cell cancer-removed, past [id number], migraines-in past took depakote for them,"cluster headaches. Last migraine- December 2019. History of Any Multi-Drug Resistant Organisms: None Reported Past Surgical History: Orthopedic Surgery Additional Past Surgical History / Comment(s): left lower eyelid surgery (basal cell ca removed) x 2, left fallopian tube and ovary removed. BILAT WRIST SX, COLONOSCOPY, BILAT CATARACTS. Past Anesthesia/Blood Transfusion Reactions: Previous Problems w/ Anesthesia Additional Past Anesthesia/Blood Transfusion Reaction / Comment(s): Difficulty waking up after surgery. Past Psychological History: Anxiety, Depression Smoking Status: Former smoker Past Alcohol Use History: None Reported Past Drug Use History: None Reported - Past Family History Father Family Medical History: Cancer Additional Family Medical History / Comment(s): Brain Mother Additional Family Medical History / Comment(s): hx of lupus General Exam General appearance: alert, in no apparent distress Head exam: Present: atraumatic, normocephalic, normal inspection Eye exam: Present: normal appearance, PERRL, EOMI. Absent: scleral icterus, conjunctival injection, periorbital swelling ENT exam: Present: normal exam, mucous membranes moist Neck exam: Present: normal inspection. Absent: tenderness, meningismus, lymphadenopathy Respiratory exam: Present: normal lung sounds bilaterally. Absent: respiratory distress, wheezes, rales, rhonchi, stridor Cardiovascular Exam: Present: regular rate, normal rhythm, normal heart sounds. Absent: systolic murmur, diastolic murmur, rubs, gallop, clicks GI/Abdominal exam: Present: soft, normal bowel sounds. Absent: distended, tenderness, guarding, rebound, rigid Extremities exam: Present: normal inspection, full ROM, normal capillary refill. Absent: tenderness, pedal edema, joint swelling, calf tenderness Back exam: Present: CVA tenderness (R) Neurological exam: Present: alert, oriented X3, CN II-XII intact Psychiatric exam: Present: normal affect, normal mood Skin exam: Present: warm, dry, intact, normal color. Absent: rash Course Vital Signs 10/04/21 10/04/21 10/04/21 13:53 15:49 17:52 Temperature 97.7 F Pulse Rate 52 L 68 Respiratory 18 22 18 Rate Blood Pressure 99/45 100/62 O2 Sat by Pulse 97 98 Oximetry Medical Decision Making - Medical Decision Making The patient was placed into room 25. A thorough history and physical exam was performed. IV access was established and the patient was given a liter bolus of normal saline. She is given a Tylenol 3 for pain control. Laboratory studies are conducted which reveal a white count of 16.3. Sodium low at 133. Creatinine elevated at 2. Urinalysis does demonstrate bacteria and white blood cells. Covid is negative. CT of the patient's abdomen and pelvis mistreats concerning signs of pyelonephritis with no acute obstruction chest x-ray without acute findings. Results are discussed with the patient. Recommended hospitalization for fluids, antibiotics for which the patient did agree to. Spoke with Dr. Evans who agreed to admit the patient. - Lab Data Result diagrams: 10/07/21 05:54 10/07/21 05:54 Lab Results 10/04/21 10/04/21 10/04/21 Range/Units 15:14 15:14 15:14 WBC 16.3 H (3.8-10.6) k/uL RBC 3.69 L (3.80-5.40) m/uL Hgb 11.1 L (11.4-16.0) gm/dL Hct 34.5 (34.0-46.0) % MCV 93.3 (80.0-100.0) fL MCH 30.0 (25.0-35.0) pg MCHC 32.1 (31.0-37.0) g/dL RDW 12.2 (11.5-15.5) % Plt Count 282 (150-450) k/uL MPV 8.0 Immature Gran % (Auto) % Absolute Nucleated RBC (0.00-0.00) X 10*3/uL Neutrophils % 85 % Lymphocytes % 7 % Monocytes % 5 % Eosinophils % 1 % Basophils % 0 % Immature Gran # (0.00-0.04) X 10*3/uL Neutrophils # 13.8 H (1.3-7.7) k/uL Lymphocytes # 1.1 (1.0-4.8) k/uL Monocytes # 0.8 (0-1.0) k/uL Eosinophils # 0.2 (0-0.7) k/uL Basophils # 0.1 (0-0.2) k/uL NRBC/100 WBC Diff (0.0-0.0) /100 WBCS Sodium 133 L (137-145) mmol/L Potassium 3.7 (3.5-5.1) mmol/L Chloride 99 (98-107) mmol/L Carbon Dioxide 21 L (22-30) mmol/L Anion Gap 13 mmol/L BUN 24 H (7-17) mg/dL Creatinine 2.03 H (0.52-1.04) mg/dL Est GFR (CKD-EPI)AfAm 28 (>60 ml/min/1.73 sqM) Est GFR (CKD-EPI)NonAf 24 (>60 ml/min/1.73 sqM) BUN/Creatinine Ratio (12.00-20.00) Ratio Glucose 99 (74-99) mg/dL Plasma Lactic Acid Jason (0.7-2.0) mmol/L Calcium 8.7 (8.4-10.2) mg/dL Total Bilirubin 0.5 (0.2-1.3) mg/dL AST 107 H (14-36) U/L ALT 58 H (4-34) U/L Alkaline Phosphatase 194 H (38-126) U/L Total Protein 6.3 (6.3-8.2) g/dL Albumin 3.5 (3.5-5.0) g/dL TSH 2.010 (0.465-4.680) mIU/L Urine Color Yellow Urine Appearance Turbid H (Clear) Urine pH 5.0 (5.0-8.0) Ur Specific [place] 1.028 (1.001-1.035) Urine Protein 1+ H (Negative) Urine Glucose (UA) Negative (Negative) Urine Ketones Negative (Negative) Urine Blood Negative (Negative) Urine Nitrite Negative (Negative) Urine Bilirubin Negative (Negative) Urine Urobilinogen <2.0 (<2.0) mg/dL Ur Leukocyte Esterase Large H (Negative) Urine RBC 5 (0-5) /hpf Urine WBC 72 H (0-5) /hpf Ur Squamous Epith Cells 7 H (0-4) /hpf Urine Bacteria Rare H (None) /hpf Hyaline Casts 54 H (0-2) /lpf Urine Mucus Rare H (None) /hpf Coronavirus (PCR) (Not Detectd) 10/04/21 10/04/21 10/05/21 Range/Units 15:14 15:39 05:35 WBC 17.38 H (3.8-10.6) k/uL RBC 3.64 L (3.80-5.40) m/uL Hgb 10.5 L (11.4-16.0) gm/dL Hct 33.7 L (34.0-46.0) % MCV 92.6 (80.0-100.0) fL MCH 28.8 (25.0-35.0) pg MCHC 31.2 L (31.0-37.0) g/dL RDW 12.4 (11.5-15.5) % Plt Count 320 (150-450) k/uL MPV 10.8 Immature Gran % (Auto) 1.2 % Absolute Nucleated RBC 0 (0.00-0.00) X 10*3/uL Neutrophils % 82.3 % Lymphocytes % 7.5 % Monocytes % 8.5 % Eosinophils % 0.3 % Basophils % 0.2 % Immature Gran # 0.20 H (0.00-0.04) X 10*3/uL Neutrophils # 14.32 H (1.3-7.7) k/uL Lymphocytes # 1.30 (1.0-4.8) k/uL Monocytes # 1.47 H (0-1.0) k/uL Eosinophils # 0.05 (0-0.7) k/uL Basophils # 0.04 (0-0.2) k/uL NRBC/100 WBC Diff 0 (0.0-0.0) /100 WBCS Sodium (137-145) mmol/L Potassium (3.5-5.1) mmol/L Chloride (98-107) mmol/L Carbon Dioxide (22-30) mmol/L Anion Gap mmol/L BUN (7-17) mg/dL Creatinine (0.52-1.04) mg/dL Est GFR (CKD-EPI)AfAm (>60 ml/min/1.73 sqM) Est GFR (CKD-EPI)NonAf (>60 ml/min/1.73 sqM) BUN/Creatinine Ratio (12.00-20.00) Ratio Glucose (74-99) mg/dL Plasma Lactic Acid Jason 0.8 (0.7-2.0) mmol/L Calcium (8.4-10.2) mg/dL Total Bilirubin (0.2-1.3) mg/dL AST (14-36) U/L ALT (4-34) U/L Alkaline Phosphatase (38-126) U/L Total Protein (6.3-8.2) g/dL Albumin (3.5-5.0) g/dL TSH (0.465-4.680) mIU/L Urine Color Urine Appearance (Clear) Urine pH (5.0-8.0) Ur Specific [place] (1.001-1.035) Urine Protein (Negative) Urine Glucose (UA) (Negative) Urine Ketones (Negative) Urine Blood (Negative) Urine Nitrite (Negative) Urine Bilirubin (Negative) Urine Urobilinogen (<2.0) mg/dL Ur Leukocyte Esterase (Negative) Urine RBC (0-5) /hpf Urine WBC (0-5) /hpf Ur Squamous Epith Cells (0-4) /hpf Urine Bacteria (None) /hpf Hyaline Casts (0-2) /lpf Urine Mucus (None) /hpf Coronavirus (PCR) Not Detected (Not Detectd) 10/05/21 Range/Units 05:35 WBC (3.8-10.6) k/uL RBC (3.80-5.40) m/uL Hgb (11.4-16.0) gm/dL Hct (34.0-46.0) % MCV (80.0-100.0) fL MCH (25.0-35.0) pg MCHC (31.0-37.0) g/dL RDW (11.5-15.5) % Plt Count (150-450) k/uL MPV Immature Gran % (Auto) % Absolute Nucleated RBC (0.00-0.00) X 10*3/uL Neutrophils % % Lymphocytes % % Monocytes % % Eosinophils % % Basophils % % Immature Gran # (0.00-0.04) X 10*3/uL Neutrophils # (1.3-7.7) k/uL Lymphocytes # (1.0-4.8) k/uL Monocytes # (0-1.0) k/uL Eosinophils # (0-0.7) k/uL Basophils # (0-0.2) k/uL NRBC/100 WBC Diff (0.0-0.0) /100 WBCS Sodium 133 L (137-145) mmol/L Potassium 3.7 (3.5-5.1) mmol/L Chloride 99 (98-107) mmol/L Carbon Dioxide 21.1 (22-30) mmol/L Anion Gap 12.90 mmol/L BUN 21.5 (7-17) mg/dL Creatinine 1.5 (0.52-1.04) mg/dL Est GFR (CKD-EPI)AfAm 40.2 L (>60 ml/min/1.73 sqM) Est GFR (CKD-EPI)NonAf 34.7 L (>60 ml/min/1.73 sqM) BUN/Creatinine Ratio 14.33 (12.00-20.00) Ratio Glucose 155 H (74-99) mg/dL Plasma Lactic Acid Jason (0.7-2.0) mmol/L Calcium 8.4 L (8.4-10.2) mg/dL Total Bilirubin (0.2-1.3) mg/dL AST (14-36) U/L ALT (4-34) U/L Alkaline Phosphatase (38-126) U/L Total Protein (6.3-8.2) g/dL Albumin (3.5-5.0) g/dL TSH (0.465-4.680) mIU/L Urine Color Urine Appearance (Clear) Urine pH (5.0-8.0) Ur Specific [place] (1.001-1.035) Urine Protein (Negative) Urine Glucose (UA) (Negative) Urine Ketones (Negative) Urine Blood (Negative) Urine Nitrite (Negative) Urine Bilirubin (Negative) Urine Urobilinogen (<2.0) mg/dL Ur Leukocyte Esterase (Negative) Urine RBC (0-5) /hpf Urine WBC (0-5) /hpf Ur Squamous Epith Cells (0-4) /hpf Urine Bacteria (None) /hpf Hyaline Casts (0-2) /lpf Urine Mucus (None) /hpf Coronavirus (PCR) (Not Detectd) - EKG Data EKG Comments: EKG demonstrates normal sinus rhythm with a rate of 64. MD interval 145. QRS 96. QTC of 419. No acute ST segment elevations or depressions Disposition Clinical Impression: Subjective fever, Acute pyelonephritis, SHAWN (acute kidney injury), Leukocytosis, Myalgia Disposition: ADMITTED IP TO THIS HOSP Condition: Stable Is patient prescribed a controlled substance at d/c from ED?: No Decision to Admit Reason: Admit from EC Decision Date: 10/04/21 Decision Time: 17:02
[2021-10-04 16:16] LABS: Appearance,Urine Turbid (Clear); Bacteria,Urine Rare /hpf; Bilirubin,Urine Negative (Negative); Blood,Urine Negative (Negative); Color,Urine Yellow; Glucose,Urine (UA) Negative (Negative); Hyaline Casts,Urine 54 /lpf (0-2); Ketones,Urine Negative (Negative); Leukocyte Esterase,Urine Large (Negative); Mucus,Urine Rare /hpf; Nitrite,Urine Negative (Negative); Protein,Urine 1+ (Negative); RBC,Urine 5 /hpf (0-5); Specific Gravity,Urine 1.028 (1.001-1.035); Squamous Epithelial Cell,Urine 7 /hpf (0-4); Urobilinogen,Urine <2.0 mg/dL (<2.0); WBC,Urine 72 /hpf (0-5)
--- NOTE | 2021-10-04 16:18 | XR ---
EXAMINATION TYPE: XR chest 2V DATE OF EXAM: 10/04/2021 COMPARISON: X-ray dated 03/13/2020 HISTORY: Cough and fever TECHNIQUE: Frontal and lateral views of the chest are obtained. FINDINGS: Minimal left lateral basal pulmonary atelectasis. Grossly unremarkable lungs otherwise. No pleural ef fusion or definite pneumothorax. No cardiomegaly. No gross aggressive bone lesion. IMPRESSION: No acute abnormality identified.
--- NOTE | 2021-10-04 16:22 | CT ---
EXAMINATION TYPE: CT abdomen pelvis wo con DATE OF EXAM: 10/04/2021 COMPARISON: CT 10/17/2018 HISTORY: Abdominal pain and distention. CT DLP: 607.4 mGycm Automated exposure control for dose reduction was used. TECHNIQUE: Helical acquisition of images from the lung bases through the pelvis. FINDINGS: Lack of intravenous contrast could compromise sensitivity. There is small hiatal hernia pre sent. Surgical clips noted deep to the anterior abdominal wall LUNG BASES: No significant abnormality is appreciated. AORTA: No significant abnormality is appreciated. LIVER/GB: Patient is post cholecystectomy. No evident liver mass. PANCREAS: No significant abnormality is seen. SPLEEN: No significant abnormality is seen. ADRENALS: No significant abnormality is seen. KIDNEYS: Perinephric increased density is present on the right, right kidney appears increased in siz e as compared to the left. Perinephric soft tissue noted to lesser extent on the left which may repre sent fluid REPRODUCTIVE ORGANS: No significant abnormality is seen. URINARY BLADDER: Nondistended, no evident urinary calculus. BOWEL: Diverticular changes associated with the colon FREE AIR: No Free Air is visible. ASCITES: None visible. PELVIC ADENOPATHY: None visualized. RETROPERITONEAL ADENOPATHY: No Retroperitoneal Adenopathy visible. OSSEOUS STRUCTURES: There is a spinal curvature, multilevel degenerative disc change, facet arthropa thy noted IMPRESSION: Correlate for possible pyelonephritis or perhaps recently passed ureteral calculus versus possibly renal failure. Noncontrast exam. Postop changes.
[2021-10-04] MEDS ORDERED: cefTRIAXone IN SWFI 1,000 MG/10 ML SYRINGE IVP STA (16:27)
[2021-10-04] MEDS ORDERED: NALOXONE 0.4 MG/ML 1 ML VIAL IV PRN (17:07)
[2021-10-04] MEDS: SODIUM CHLORIDE 0.9% 1,000 ML IV SCH (18:32)
[2021-10-05] MEDS: Acetaminophen-Codeine 300-30mg TAB PO PRN (02:32)
[2021-10-05] MEDS: LEVOTHYROXINE 25 MCG TAB PO SCH (06:01)
[2021-10-05] MEDS: SODIUM CHLORIDE 0.9% 1,000 ML IV SCH ×2 (08:21→21:03)
[2021-10-05] MEDS: LOSARTAN 50 MG TAB PO SCH (08:29)
[2021-10-05] MEDS: clonazePAM 0.5 MG TAB PO SCH ×3 (08:29→17:58)
[2021-10-05] MEDS: PANTOPRAZOLE 40 MG TABLET PO SCH (08:30)
[2021-10-05] MEDS: CHOLECALCIFEROL 125 MCG (5000 IU) TABLET PO SCH (08:30)
[2021-10-05] MEDS: MULTIVITAMINS, THERA 1 EACH TAB PO SCH (08:30)
[2021-10-05] MEDS: buPROPion XL 150 MG TAB.ER.24H PO SCH (08:30)
[2021-10-05] MEDS: DULoxetine HCL 30 MG CAPSULE.DR PO SCH (08:31)
[2021-10-05] MEDS: KETOTIFEN 0.025% OPHTH DROPS 5 ML BTL BOTH EYES SCH ×2 (08:31→20:58)
[2021-10-05] MEDS: lamoTRIgine 25 MG TAB PO SCH ×2 (08:31→17:58)
[2021-10-05] MEDS: METOPROLOL TARTRATE 25 MG TAB PO SCH ×2 (08:35→20:10)
[2021-10-05] MEDS ORDERED: cefTRIAXone IN SWFI 1,000 MG/10 ML SYRINGE IVP SCH (09:00)
[2021-10-05 09:12] LABS: Basophils # (A) 0.04 X 10*3/uL (0.00-0.10); Basophils % (A) 0.2 %; Eosinophils # (A) 0.05 X 10*3/uL (0.04-0.35); Eosinophils % (A) 0.3 %; HCT 33.7 % (37.2-46.3); HGB 10.5 g/dL (12.0-15.0); Immature Grans, Automated 1.2 %; Lymphocytes % (A) 7.5 %; MCH 28.8 pg (27.0-32.0); MCHC 31.2 g/dL (32.0-37.0); MCV 92.6 fL (80.0-97.0); Mean Platelet Volume 10.8 fL (9.5-12.2); Monocytes # (A) 1.47 X 10*3/uL (0.20-1.00); Monocytes % (A) 8.5 %; NRBC Per 100 WBC 0 /100 WBCS (0.0-0.0); Neutrophils # (A) 14.32 X 10*3/uL (1.80-7.70); Neutrophils % (A) 82.3 %; Platelet Count 320 X 10*3/uL (140-440); RBC 3.64 X 10*6/uL (4.10-5.20); RDW 12.4 % (11.5-14.5); WBC 17.38 X 10*3/uL (4.50-10.00)
[2021-10-05 09:29] LABS: African American GFR (CKD) 40.2 (60.0-200.0); Anion Gap 12.9 mmol/L (10.00-18.00); BUN/Creat Ratio 14.33 Ratio (12.00-20.00); Blood Urea Nitrogen 21.5 mg/dL (9.0-27.0); Calcium 8.4 mg/dL (8.7-10.3); Carbon Dioxide 21.1 mmol/L (20.0-27.5); Non-African American GFR(CKD) 34.7 (60.0-200.0); Potassium 3.7 mmol/L (3.5-5.5)
[2021-10-05] MEDS: ATORVASTATIN 10 MG TAB PO SCH (17:58)
--- NOTE | 2021-10-05 19:59 | P.HPIM ---
History of Present Illness H&P Date: 10/05/21 Dee Ellison, is a 71 year old male who presented to [facility] emergency room with a chief complaint of fever weakness generalized body pain and cough. She was evaluated in the emergency room vital examination on presentation revealed a temperature of 97.7 pulse 52 respiration 18 blood pressure 99/45 pulse ox 97% on room air Laboratory data revealed a white blood count of 16.3 hemoglobin 11.1 platelet count 282 sodium 133 potassium 3.7 chloride 99 CO2 21 BUN 24 creatinine 2.03 Testing in the emergency room revealed computed tomography scan of the abdomen and pelvis done in the emergency room showed sign of pyelonephritis or possibly recently passed ureteral calculus Patient was admitted to medical floor for further evaluation and treatment, she was started on IV fluid Past medical history is significant for history of fibromyalgia history of migraine headache and a cluster headache history of [place]'s palsy affecting the left side of the face history of colitis and diverticulitis history of skin cancer and history of COPD Past Medical History Past Medical History: Cancer, COPD, GERD/Reflux, Pneumonia, Thyroid Disorder Additional Past Medical History / Comment(s): hx [place] Palsy affected lt side of face, hx. of colitis, diverticulitis, being worked up for parkinson's, tremors, past falls,left eye lid basal cell cancer-removed, past [id number], migraines-in past took depakote for them,"cluster headaches. Last migraine- December 2019. History of Any Multi-Drug Resistant Organisms: None Reported Past Surgical History: Orthopedic Surgery Additional Past Surgical History / Comment(s): left lower eyelid surgery (basal cell ca removed) x 2, left fallopian tube and ovary removed. BILAT WRIST SX, COLONOSCOPY, BILAT CATARACTS. Past Anesthesia/Blood Transfusion Reactions: Previous Problems w/ Anesthesia Additional Past Anesthesia/Blood Transfusion Reaction / Comment(s): Difficulty waking up after surgery. Past Psychological History: Anxiety, Depression Smoking Status: Former smoker Past Alcohol Use History: None Reported Past Drug Use History: None Reported - Past Family History Father Family Medical History: Cancer Additional Family Medical History / Comment(s): Brain Mother Additional Family Medical History / Comment(s): hx of lupus Medications and Allergies Home Medications Medication Instructions Recorded Confirmed Type Levothyroxine Sodium [Synthroid] 25 mcg PO DAILY 12/12/15 10/04/21 History Multivitamins, Thera [Multivitamin 1 tab PO DAILY 12/12/15 10/04/21 History (formulary)] buPROPion XL [Wellbutrin XL] 450 mg PO DAILY 03/25/18 10/04/21 History lamoTRIgine [LaMICtal] 50 mg PO BID@0800,1800 04/17/18 10/04/21 History clonazePAM [KlonoPIN] 0.75 mg PO TID@0900,1200,1800 04/30/18 10/04/21 History Docusate [Colace] 100 mg PO BID PRN 08/08/19 10/04/21 History Lansoprazole [Prevacid] 30 mg PO DAILY 08/08/19 10/04/21 History Losartan [Cozaar] 50 mg PO DAILY 08/08/19 10/04/21 History Rosuvastatin Calcium [Crestor] 5 mg PO HS@1800 08/08/19 10/04/21 History DULoxetine HCL [Cymbalta] 30 mg PO DAILY 02/12/20 10/04/21 History Cholecalciferol (Vitamin D3) 125 mcg PO DAILY 10/04/21 10/04/21 History [Vitamin D3 (125 MCG = 5,000 IU)] Metoprolol Tartrate [Lopressor] 25 mg PO BID@0900,1800 10/04/21 10/04/21 History Nitroglycerin Sl Tabs [Nitrostat] 0.4 mg SL Q5M PRN 10/04/21 10/04/21 History Olopatadine HCl [Pataday Once 1 drop BOTH EYES DAILY 10/04/21 10/04/21 History Daily Relief] Allergies Allergy/AdvReac Type Severity Reaction Status Date / Time levofloxacin [From Levaquin] Allergy Swelling Verified 10/04/21 17:16 metronidazole [From Flagyl] Allergy Swelling Verified 10/04/21 17:16 amoxicillin [From Augmentin] AdvReac Nausea Verified 10/04/21 17:16 clavulanic acid AdvReac Nausea Verified 10/04/21 17:16 [From Augmentin] naproxen [From Naprosyn] AdvReac passes out Verified 10/04/21 17:16 clear paper tape Allergy Rash/Hives Uncoded 10/04/21 17:16 Physical Exam Vitals: Vital Signs Temp Pulse Pulse Resp BP BP Pulse Ox 10/05/21 07:00 99.8 F H 106 H 18 116/71 91 L 10/05/21 04:31 101.6 F H 10/05/21 02:20 100.8 F H 94 17 126/65 96 10/05/21 02:00 102.7 F H 10/04/21 20:30 98.1 F 59 L 17 101/66 95 10/04/21 20:00 59 L 17 10/04/21 17:52 68 18 100/62 98 10/04/21 15:49 22 10/04/21 13:53 97.7 F 52 L 18 99/45 97 Intake and Output 10/04/21 10/05/21 10/05/21 22:59 06:59 14:59 Intake Total 120 Balance 120 Intake: Oral 120 Other: # Voids 1 Weight 80.739 kg In general patient is alert and oriented x 3 in no distress HEENT head normocephalic and atraumatic Neck is supple no JVD no goiter no lymphadenopathy no carotid bruit Chest examination is clear to auscultation no crackles no wheezing Cardiac exam reveals regular heart sounds S1 and S2 no gallops no murmurs Abdomen is soft nontender no organomegaly with normal bowel sounds Extremity exam reveals no edema no cyanosis or clubbing Neurological examination reveals no gross focal deficits Results CBC & Chem 7: 10/05/21 05:35 10/05/21 05:35 Labs: Abnormal Lab Results - Last 24 Hours (Table) 10/04/21 10/04/21 10/04/21 Range/Units 15:14 15:14 15:14 WBC 16.3 H (3.8-10.6) k/uL RBC 3.69 L (3.80-5.40) m/uL Hgb 11.1 L (11.4-16.0) gm/dL Hct (37.2-46.3) % MCHC (32.0-37.0) g/dL Immature Gran # (0.00-0.04) X 10*3/uL Neutrophils # 13.8 H (1.3-7.7) k/uL Monocytes # (0.20-1.00) X 10*3/uL Sodium 133 L (137-145) mmol/L Carbon Dioxide 21 L (22-30) mmol/L BUN 24 H (7-17) mg/dL Creatinine 2.03 H (0.52-1.04) mg/dL Est GFR (CKD-EPI)AfAm (60.0-200.0) Est GFR (CKD-EPI)NonAf (60.0-200.0) Glucose (70-110) mg/dL Calcium (8.7-10.3) mg/dL AST 107 H (14-36) U/L ALT 58 H (4-34) U/L Alkaline Phosphatase 194 H (38-126) U/L Urine Appearance Turbid H (Clear) Urine Protein 1+ H (Negative) Ur Leukocyte Esterase Large H (Negative) Urine WBC 72 H (0-5) /hpf Ur Squamous Epith Cells 7 H (0-4) /hpf Urine Bacteria Rare H (None) /hpf Hyaline Casts 54 H (0-2) /lpf Urine Mucus Rare H (None) /hpf 10/05/21 10/05/21 Range/Units 05:35 05:35 WBC 17.38 H (3.8-10.6) k/uL RBC 3.64 L (3.80-5.40) m/uL Hgb 10.5 L (11.4-16.0) gm/dL Hct 33.7 L (37.2-46.3) % MCHC 31.2 L (32.0-37.0) g/dL Immature Gran # 0.20 H (0.00-0.04) X 10*3/uL Neutrophils # 14.32 H (1.3-7.7) k/uL Monocytes # 1.47 H (0.20-1.00) X 10*3/uL Sodium 133 L (137-145) mmol/L Carbon Dioxide (22-30) mmol/L BUN (7-17) mg/dL Creatinine (0.52-1.04) mg/dL Est GFR (CKD-EPI)AfAm 40.2 L (60.0-200.0) Est GFR (CKD-EPI)NonAf 34.7 L (60.0-200.0) Glucose 155 H (70-110) mg/dL Calcium 8.4 L (8.7-10.3) mg/dL AST (14-36) U/L ALT (4-34) U/L Alkaline Phosphatase (38-126) U/L Urine Appearance (Clear) Urine Protein (Negative) Ur Leukocyte Esterase (Negative) Urine WBC (0-5) /hpf Ur Squamous Epith Cells (0-4) /hpf Urine Bacteria (None) /hpf Hyaline Casts (0-2) /lpf Urine Mucus (None) /hpf Microbiology - Last 24 Hours (Table) 10/04/21 15:14 Urine Culture - Preliminary Urine,Voided Thrombosis Risk Factor Assmnt - Choose All That Apply Each Risk Factor Represents 2 Points: Age 61-74 years Thrombosis Risk Factor Assessment Total Risk Factor Score: 2 Thrombosis Risk Factor Assessment Level: Low Risk Assessment and Plan Plan: Acute pyelonephritis, with sepsis as evidenced by fever leukocytosis Acute kidney injury, creatinine on presentation 2.03 patient was started on IV fluid normal saline will monitor closely Bilateral flank pain, no evidence of kidney stones on computed tomography scan of the abdomen and pelvis, possibly patient has passed a stone prior to presentation Underlying history of fibromyalgia Elevated liver enzymes including AST ALT and alkaline phosphatase, patient is postcholecystectomy no evidence of liver mass on computed tomography scan Patient was admitted to medical floor she was started on IV antibiotic Rocephin She was started on IV fluid normal saline At this time will add abdomen ultrasound for further evaluation of liver and to further rule out kidney stones Will consult infectious disease Will follow closely
[2021-10-06] MEDS: LEVOTHYROXINE 25 MCG TAB PO SCH (05:26)
[2021-10-06] MEDS: ENOXAPARIN 40 MG/0.4 ML SYRINGE SQ SCH (08:38)
[2021-10-06] MEDS: MULTIVITAMINS, THERA 1 EACH TAB PO SCH (08:38)
[2021-10-06] MEDS: CHOLECALCIFEROL 125 MCG (5000 IU) TABLET PO SCH (08:38)
[2021-10-06] MEDS: LOSARTAN 50 MG TAB PO SCH (08:38)
[2021-10-06] MEDS: METOPROLOL TARTRATE 25 MG TAB PO SCH ×2 (08:38→18:04)
[2021-10-06] MEDS: PANTOPRAZOLE 40 MG TABLET PO SCH (08:38)
[2021-10-06] MEDS: clonazePAM 0.5 MG TAB PO SCH ×3 (08:38→18:04)
[2021-10-06] MEDS: buPROPion XL 150 MG TAB.ER.24H PO SCH (08:39)
[2021-10-06] MEDS: lamoTRIgine 25 MG TAB PO SCH ×2 (08:39→18:04)
[2021-10-06] MEDS: DULoxetine HCL 30 MG CAPSULE.DR PO SCH (08:39)
[2021-10-06] MEDS: KETOTIFEN 0.025% OPHTH DROPS 5 ML BTL BOTH EYES SCH ×2 (08:40→20:47)
--- NOTE | 2021-10-06 09:51 | P.PN ---
Subjective Progress Note Date: 10/06/21 Dee Ellison, is a 71 year old male who presented to [facility] emergency room with a chief complaint of fever weakness generalized body pain and cough. She was evaluated in the emergency room vital examination on presentation revealed a temperature of 97.7 pulse 52 respiration 18 blood pressure 99/45 pulse ox 97% on room air Laboratory data revealed a white blood count of 16.3 hemoglobin 11.1 platelet count 282 sodium 133 potassium 3.7 chloride 99 CO2 21 BUN 24 creatinine 2.03 Testing in the emergency room revealed computed tomography scan of the abdomen and pelvis done in the emergency room showed sign of pyelonephritis or possibly recently passed ureteral calculus Patient was admitted to medical floor for further evaluation and treatment, she was started on IV fluid Past medical history is significant for history of fibromyalgia history of migraine headache and a cluster headache 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 Patient reports some improvement with generalized body pain. Urine culture currently growing gram- negative bacilli. Infectious disease services have been consulted. Patient remains on Rocephin. Repeat labs have been ordered. Current vital signs temp 98.1, heart rate 85, respiratory rate 16, blood pressure 123/69 and pulse ox of 95% on room air Objective - Vital Signs Vital signs: Vital Signs Temp 98.1 F 10/06/21 07:45 Pulse 85 10/06/21 07:45 Resp 16 10/06/21 07:45 BP 123/69 10/06/21 07:45 Pulse Ox 95 10/06/21 07:45 Intake & Output 10/05/21 10/06/21 10/06/21 18:59 06:59 18:59 Intake Total 890 Balance 890 Intake: Intake, IV Titration 650 Amount Sodium Chloride 0.9% 1, 600 000 ml @ 75 mls/hr IV . [id number] L[facility]SET Rx#:[id number] cefTRIAXone 1 gm In 50 Sodium Chloride 0.9% 50 ml @ 100 mls/hr IVPB Q24HR LISSET Rx#:[id number] Oral 240 Other: # Voids 2 1 - Exam In general patient is alert and oriented x 3 in no distress HEENT head normocephalic and atraumatic Neck is supple no JVD no goiter no lymphadenopathy no carotid bruit Chest examination is clear to auscultation no crackles no wheezing Cardiac exam reveals regular heart sounds S1 and S2 no gallops no murmurs Abdomen is soft nontender no organomegaly with normal bowel sounds Extremity exam reveals no edema no cyanosis or clubbing Neurological examination reveals no gross focal deficits - Labs CBC & Chem 7: 10/05/21 05:35 10/05/21 05:35 Labs: Microbiology - Last 24 Hours (Table) 10/04/21 15:14 Urine Culture - Preliminary Urine,Voided Gram Neg Bacilli 10/04/21 17:07 Blood Culture - Preliminary Blood No Growth after 24 hours Assessment and Plan Plan: Acute pyelonephritis, with sepsis as evidenced by fever leukocytosis Acute kidney injury, creatinine on presentation 2.03 patient was started on IV fluid normal saline will monitor closely. Creatinine improving to 1.5 Bilateral flank pain, no evidence of kidney stones on computed tomography scan of the abdomen and pelvis, possibly patient has passed a stone prior to presentation Underlying history of fibromyalgia Elevated liver enzymes including AST ALT and alkaline phosphatase, patient is postcholecystectomy no evidence of liver mass on computed tomography scan Patient was admitted to medical floor she was started on IV antibiotic Rocephin She was started on IV fluid normal saline At this time will add abdomen ultrasound for further evaluation of liver and to further rule out kidney stones Will consult infectious disease Maintained on IV antibiotics Urine and blood cultures pending Will follow closely
[2021-10-06 11:16] LABS: Basophils # (A) 0.06 X 10*3/uL (0.00-0.10); Basophils % (A) 0.6 %; Eosinophils % (A) 0.9 %; HCT 30.6 % (37.2-46.3); HGB 9.6 g/dL (12.0-15.0); Immature Grans, Automated 1.3 %; Lymphocytes # (A) 1.59 X 10*3/uL (0.90-5.00); Lymphocytes % (A) 15.1 %; MCHC 31.4 g/dL (32.0-37.0); MCV 92.4 fL (80.0-97.0); Mean Platelet Volume 10.4 fL (9.5-12.2); Monocytes # (A) 1.18 X 10*3/uL (0.20-1.00); Monocytes % (A) 11.2 %; NRBC Per 100 WBC 0 /100 WBCS (0.0-0.0); Neutrophils # (A) 7.48 X 10*3/uL (1.80-7.70); Neutrophils % (A) 70.9 %; Platelet Count 333 X 10*3/uL (140-440); RBC 3.31 X 10*6/uL (4.10-5.20); RDW 12.5 % (11.5-14.5); WBC 10.55 X 10*3/uL (4.50-10.00)
[2021-10-06 11:27] LABS: ALT 42 U/L (8-44); AST 76 U/L (13-35); African American GFR (CKD) 63.3 (60.0-200.0); Albumin 3.1 g/dL (3.8-4.9); Albumin/Globulin Ratio 1.34 (1.60-3.17); Alkaline Phosphatase 181 U/L (41-126); BUN/Creat Ratio 13.98 Ratio (12.00-20.00); Blood Urea Nitrogen 14.4 mg/dL (9.0-27.0); Calcium 8.5 mg/dL (8.7-10.3); Chloride 102 mmol/L (96-109); Chol/HDL Ratio 5.59 Ratio; Creatine Kinase 46 U/L (26-186); Globulin 2.3 g/dL (1.6-3.3); Glucose 111 mg/dL (70-110); LDL Cholesterol,Calculated 50.3 mg/dL (0.0-131.0); Non-African American GFR(CKD) 54.7 (60.0-200.0); Potassium 3.9 mmol/L (3.5-5.5); Sodium 139 mmol/L (135-145); Total Bilirubin <0.15 mg/dL (0.30-1.20); Total Protein 5.3 g/dL (6.2-8.2)
[2021-10-06] MEDS: SODIUM CHLORIDE 0.9% 1,000 ML IV SCH ×2 (14:48→20:50)
--- NOTE | 2021-10-06 15:21 | US ---
EXAMINATION TYPE: US abdomen complete DATE OF EXAM: 10/06/2021 COMPARISON: CT, US ltd CLINICAL HISTORY: Pyelonephritis. Inpatient with acute pyrexia; gallbladder removed EXAM MEASUREMENTS: Liver Length: 15.0 cm Gallbladder Wall: surgically removed CBD: 0.5 cm Spleen: 9.9 cm Right Kidney: 9.1 x 6.3 x 5.2 cm Left Kidney: 8.7 x 5.2 x 4.1 cm Pancreas: hyperechoic Liver: no masses seen Gallbladder: surgically removed Evidence for sonographic Benavides's sign: no CBD: wnl Spleen: wnl Right Kidney: No hydronephrosis or masses seen Left Kidney: No hydronephrosis or masses seen Upper IVC: wnl Abd Aorta: wnl The liver is homogenous. The intrahepatic portion of the IVC and proximal abdominal aorta are within normal limits. Common bile duct is unremarkable. The visualized portions of the pancreas are hyper echoic possibly due to fatty infiltration. The spleen is unremarkable. Kidneys are symmetric and fr ee of hydronephrosis. No renal lesions are seen. IMPRESSION: Unremarkable kidneys. Hyperechoic pancreas possibly due to fatty infiltration. Previous cholecystecto my.
[2021-10-06] MEDS: ATORVASTATIN 10 MG TAB PO SCH (18:03)
--- NOTE | 2021-10-06 23:32 | P.CONS ---
History of Present Illness - Reason for Consult Consult date: 10/06/21 Pyelonephritis Requesting physician: Gonsalo Evans - Chief Complaint Not feeling well x one week - History of Present Illness Patient is a 71-year female with a past medical history sniffing for fibromyalgia COPD hypothyroidism presenting to the hospital 2 days ago for evaluation of generalized body aches and fever and did have a nonproductive cough in this patient symptom has been going on for about a week patient apparently was in [place] with her family when she becomes sick she took a home Covid test which was negative patient has been taking some Motrin and Tylenol however continued not feeling that good and she presented to hospital for further evaluation patient on presentation to the hospital was initially afebrile subsequently did spike a fever of 102 F patient did not have hypoxemia or need for supplemental oxygen patient did have elevated white count 16.3 with repeat 17.38 and a left shift BUN and creatinine was elevated on admission new e xams are also elevated did have a positive UA ge PCR was negative urine cultures are currently pending patient did have a chest x-ray which was negative for acute abnormality CT abdominal pelvis lung bases were clear there was evidence of possible pyelonephritis or recently passed calculus patient has been treated with Rocephin infectious disease was consulted for further management of antibiotic therapy Review of Systems Positive point has been mentioned in the HPI rest of the systems are negative Past Medical History Past Medical History: Cancer, COPD, GERD/Reflux, Pneumonia, Thyroid Disorder Additional Past Medical History / Comment(s): hx Ovid Palsy affected lt side of face, hx. of colitis, diverticulitis, being worked up for parkinson's, tremors, past falls,left eye lid basal cell cancer-removed, past [id number], migraines-in past took depakote for them,"cluster headaches. Last migraine- December 2019. History of Any Multi-Drug Resistant Organisms: None Reported Past Surgical History: Orthopedic Surgery Additional Past Surgical History / Comment(s): left lower eyelid surgery (basal cell ca removed) x 2, left fallopian tube and ovary removed. BILAT WRIST SX, COLONOSCOPY, BILAT CATARACTS. Past Anesthesia/Blood Transfusion Reactions: Previous Problems w/ Anesthesia Additional Past Anesthesia/Blood Transfusion Reaction / Comm: Difficulty waking up after surgery. Past Psychological History: Anxiety, Depression Smoking Status: Former smoker Past Alcohol Use History: None Reported Past Drug Use History: None Reported - Past Family History Father Family Medical History: Cancer Additional Family Medical History / Comment(s): Brain Mother Additional Family Medical History / Comment(s): hx of lupus Medications and Allergies Home Medications Medication Instructions Recorded Confirmed Type Levothyroxine Sodium [Synthroid] 25 mcg PO DAILY 12/12/15 10/04/21 History Multivitamins, Thera [Multivitamin 1 tab PO DAILY 12/12/15 10/04/21 History (formulary)] buPROPion XL [Wellbutrin XL] 450 mg PO DAILY 03/25/18 10/04/21 History lamoTRIgine [LaMICtal] 50 mg PO BID@0800,1800 04/17/18 10/04/21 History clonazePAM [KlonoPIN] 0.75 mg PO TID@0900,1200,1800 04/30/18 10/04/21 History Docusate [Colace] 100 mg PO BID PRN 08/08/19 10/04/21 History Lansoprazole [Prevacid] 30 mg PO DAILY 08/08/19 10/04/21 History Losartan [Cozaar] 50 mg PO DAILY 08/08/19 10/04/21 History Rosuvastatin Calcium [Crestor] 5 mg PO HS@1800 08/08/19 10/04/21 History DULoxetine HCL [Cymbalta] 30 mg PO DAILY 02/12/20 10/04/21 History Cholecalciferol (Vitamin D3) 125 mcg PO DAILY 10/04/21 10/04/21 History [Vitamin D3 (125 MCG = 5,000 IU)] Metoprolol Tartrate [Lopressor] 25 mg PO BID@0900,1800 10/04/21 10/04/21 History Nitroglycerin Sl Tabs [Nitrostat] 0.4 mg SL Q5M PRN 10/04/21 10/04/21 History Olopatadine HCl [Pataday Once 1 drop BOTH EYES DAILY 10/04/21 10/04/21 History Daily Relief] Allergies Allergy/AdvReac Type Severity Reaction Status Date / Time levofloxacin [From Levaquin] Allergy Swelling Verified 10/04/21 17:16 metronidazole [From Flagyl] Allergy Swelling Verified 10/04/21 17:16 amoxicillin [From Augmentin] AdvReac Nausea Verified 10/04/21 17:16 clavulanic acid AdvReac Nausea Verified 10/04/21 17:16 [From Augmentin] naproxen [From Naprosyn] AdvReac passes out Verified 10/04/21 17:16 clear paper tape Allergy Rash/Hives Uncoded 10/04/21 17:16 Physical Exam Vitals: Vital Signs Temp Pulse Resp BP Pulse Ox 10/06/21 07:45 98.1 F 85 16 123/69 95 10/06/21 02: 98.0 F 83 20 124/70 93 L 10/05/21 20:02 99.1 F 77 18 98/60 94 L 10/05/21 14:00 109/67 10/05/21 13:25 99.1 F 73 20 85/51 95 Intake and Output 10/05/21 10/06/21 10/06/21 22:59 06:59 14:59 Intake Total 120 Balance 120 Intake: Oral 120 Other: # Voids 1 1 GENERAL DESCRIPTION: An elderly female lying in bed, no distress. No tachypnea or accessory muscle of respiration use. HEENT: Shows Pallor , no scleral icterus. Oral mucous membrane is dry. No pharyngeal erythema or thrush NECK: Trachea central, no thyromegaly. LUNGS: Unlabored breathing. Clear to auscultation anteriorly. No wheeze or c rackle. HEART: S1, S2, regular rate and rhythm. No loud murmur ABDOMEN: Soft, no tenderness , guarding or rigidity, no organomegaly EXTREMITIES: No edema of feet. SKIN: No rash, no masses palpable. NEUROLOGICAL: The patient is awake, alert, oriented x3, mood and affect normal. Results CBC & Chem 7: 10/06/21 07:00 10/06/21 07:00 Labs: Abnormal Lab Results - Last 24 Hours (Table) 10/06/21 10/06/21 Range/Units 07:00 07:00 WBC 10.55 H (4.50-10.00) X 10*3/uL RBC 3.31 L (4.10-5.20) X 10*6/uL Hgb 9.6 L (12.0-15.0) g/dL Hct 30.6 L (37.2-46.3) % MCHC 31.4 L (32.0-37.0) g/dL Immature Gran # 0.14 H (0.00-0.04) X 10*3/uL Monocytes # 1.18 H (0.20-1.00) X 10*3/uL Est GFR (CKD-EPI)NonAf 54.7 L (60.0-200.0) Glucose 111 H (70-110) mg/dL Calcium 8.5 L (8.7-10.3) mg/dL Total Bilirubin <0.15 L (0.30-1.20) mg/dL AST 76 H (13-35) U/L Alkaline Phosphatase 181 H (41-126) U/L Total Protein 5.3 L (6.2-8.2) g/dL Albumin 3.1 L (3.8-4.9) g/dL Albumin/Globulin Ratio 1.34 L (1.60-3.17) g/dL Triglycerides 157.00 H (0.00-149.00) mg/dL HDL Cholesterol 17.80 L (40.00-60.00) mg/dL Microbiology - Last 24 Hours (Table) 10/04/21 15:14 Urine Culture - Preliminary Urine,Voided Gram Neg Bacilli 10/04/21 17:07 Blood Culture - Preliminary Blood No Growth after 24 hours Assessment and Plan (1) Urinary tract infection Current Visit: Yes Status: Acute Code(s): N39.0 - URINARY TRACT INFECTION, SITE NOT SPECIFIED SNOMED Code(s): 69550046 Plan: 1patient presented to hospital with generalized weakness not feeling well this patient did have a fever elevated white count bradycardia for SIRS/sepsis source is likely urinary did have significantly positive UA and currently no other obvious focus of infection chest x-ray was negative no tenderness on abdominal examination. 2patient with multiple antibiotic allergies that would limit the number of antibiotics safe to use. 3Rocephin 1 g daily to continue while waiting for the culture to finalize 3gentle IV fluid We will follow on clinical condition and cultures to further adjust medication if needed Thank you for this consultation will follow this patient along with you
[2021-10-07] MEDS: LEVOTHYROXINE 25 MCG TAB PO SCH (05:31)
[2021-10-07] MEDS: clonazePAM 0.5 MG TAB PO SCH ×3 (08:01→16:42)
[2021-10-07] MEDS: MULTIVITAMINS, THERA 1 EACH TAB PO SCH (08:02)
[2021-10-07] MEDS: lamoTRIgine 25 MG TAB PO SCH ×2 (08:02→16:43)
[2021-10-07] MEDS: METOPROLOL TARTRATE 25 MG TAB PO SCH ×2 (08:02→16:43)
[2021-10-07] MEDS: LOSARTAN 50 MG TAB PO SCH (08:02)
[2021-10-07] MEDS: CHOLECALCIFEROL 125 MCG (5000 IU) TABLET PO SCH (08:03)
[2021-10-07] MEDS: PANTOPRAZOLE 40 MG TABLET PO SCH (08:03)
[2021-10-07] MEDS: DULoxetine HCL 30 MG CAPSULE.DR PO SCH (08:03)
[2021-10-07] MEDS: ENOXAPARIN 40 MG/0.4 ML SYRINGE SQ SCH (08:04)
[2021-10-07] MEDS: buPROPion XL 150 MG TAB.ER.24H PO SCH (08:04)
[2021-10-07 08:39] LABS: Basophils # (A) 0.07 X 10*3/uL (0.00-0.10); Basophils % (A) 0.8 %; Eosinophils # (A) 0.18 X 10*3/uL (0.04-0.35); Eosinophils % (A) 2.2 %; HCT 31.2 % (37.2-46.3); HGB 9.6 g/dL (12.0-15.0); Immature Grans, Automated 1.4 %; Lymphocytes % (A) 24.1 %; MCH 28.3 pg (27.0-32.0); MCHC 30.8 g/dL (32.0-37.0); Mean Platelet Volume 9.9 fL (9.5-12.2); Monocytes % (A) 10.8 %; NRBC Per 100 WBC 0 /100 WBCS (0.0-0.0); Neutrophils # (A) 5.04 X 10*3/uL (1.80-7.70); Neutrophils % (A) 60.7 %; Platelet Count 361 X 10*3/uL (140-440); RBC 3.39 X 10*6/uL (4.10-5.20); RDW 12.5 % (11.5-14.5); WBC 8.31 X 10*3/uL (4.50-10.00)
[2021-10-07 08:49] LABS: ALT 42 U/L (8-44); AST 86 U/L (13-35); African American GFR (CKD) 65.6 (60.0-200.0); Albumin 3.2 g/dL (3.8-4.9); Albumin/Globulin Ratio 1.33 (1.60-3.17); Alkaline Phosphatase 163 U/L (41-126); Blood Urea Nitrogen 12.1 mg/dL (9.0-27.0); Calcium 8.7 mg/dL (8.7-10.3); Carbon Dioxide 23.7 mmol/L (20.0-27.5); Chloride 105 mmol/L (96-109); Globulin 2.4 g/dL (1.6-3.3); Glucose 104 mg/dL (70-110); Non-African American GFR(CKD) 56.6 (60.0-200.0); Potassium 4.1 mmol/L (3.5-5.5); Sodium 140 mmol/L (135-145); Total Bilirubin <0.15 mg/dL (0.30-1.20); Total Protein 5.6 g/dL (6.2-8.2)
[2021-10-07] MEDS: DOCUSATE 100 MG CAP PO PRN ×2 (09:03→17:11)
[2021-10-07] MEDS: KETOTIFEN 0.025% OPHTH DROPS 5 ML BTL BOTH EYES SCH ×2 (09:03→21:27)
--- NOTE | 2021-10-07 11:28 | P.PN ---
Subjective Progress Note Date: 10/07/21 Dee Ellison, is a 71 year old male who presented to [facility] emergency room with a chief complaint of fever weakness generalized body pain and cough. She was evaluated in the emergency room vital examination on presentation revealed a temperature of 97.7 pulse 52 respiration 18 blood pressure 99/45 pulse ox 97% on room air Laboratory data revealed a white blood count of 16.3 hemoglobin 11.1 platelet count 282 sodium 133 potassium 3.7 chloride 99 CO2 21 BUN 24 creatinine 2.03 Testing in the emergency room revealed computed tomography scan of the abdomen and pelvis done in the emergency room showed sign of pyelonephritis or possibly recently passed ureteral calculus Patient was admitted to medical floor for further evaluation and treatment, she was started on IV fluid Past medical history is significant for history of fibromyalgia history of migraine headache and a cluster headache 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 Patient reports some improvement with generalized body pain. Urine culture currently growing gram-negative bacilli. Infectious disease services have been consulted. Patient remains on Rocephin. Repeat labs have been ordered. Current vital signs temp 98.1, heart rate 85, respiratory rate 16, blood pressure 123/69 and pulse ox of 95% on room air 10/07/2021 patient was seen and examined on the medical floor she is alert and oriented 3 in no apparent distress she is complaining of generalized weakness and body aches otherwise she denies any complaints, there is no fever or chills no headache or dizziness no chest pain no shortness of breath no cough no nausea or vomiting no abdominal pain no diarrhea and no urinary symptoms. patien is admitted with pyelonephritis, continue with IV antibiotics and IV fluids, improving gradually will follow in a.m. Objective - Vital Signs Vital signs: Vital Signs Temp 97.4 F L 10/07/21 07:00 Pulse 68 10/07/21 07:00 Resp 16 10/07/21 07:00 BP 124/63 10/07/21 07:00 Pulse Ox 91 L 10/07/21 07:00 Intake & Output 10/06/21 10/07/21 10/07/21 18:59 06:59 18:59 Intake Total 20 Output Total 200 Balance 20 -200 Intake: Oral 20 Output: Urine 200 Other: # Voids 1 - Exam In general patient is alert and oriented x 3 in no distress HEENT head normocephalic and atraumatic Neck is supple no JVD no goiter no lymphadenopathy no carotid bruit Chest examination is clear to auscultation no crackles no wheezing Cardiac exam reveals regular heart sounds S1 and S2 no gallops no murmurs Abdomen is soft nontender no organomegaly with normal bowel sounds Extremity exam reveals no edema no cyanosis or clubbing Neurological examination reveals no gross focal deficits - Labs CBC & Chem 7: 10/07/21 05:54 10/07/21 05:54 Labs: Abnormal Lab Results - Last 24 Hours (Table) 10/06/21 10/07/21 10/07/21 Range/Units 07:00 05:54 05:54 RBC 3.39 L (4.10-5.20) X 10*6/uL Hgb 9.6 L (12.0-15.0) g/dL Hct 31.2 L (37.2-46.3) % MCHC 30.8 L (32.0-37.0) g/dL Immature Gran # 0.12 H (0.00-0.04) X 10*3/uL Est GFR (CKD-EPI)NonAf 54.7 L 56.6 L (60.0-200.0) Glucose 111 H (70-110) mg/dL Calcium 8.5 L (8.7-10.3) mg/dL Total Bilirubin <0.15 L <0.15 L (0.30-1.20) mg/dL AST 76 H 86 H (13-35) U/L Alkaline Phosphatase 181 H 163 H (41-126) U/L Total Protein 5.3 L 5.6 L (6.2-8.2) g/dL Albumin 3.1 L 3.2 L (3.8-4.9) g/dL Albumin/Globulin Ratio 1.34 L 1.33 L (1.60-3.17) g/dL Triglycerides 157.00 H (0.00-149.00) mg/dL HDL Cholesterol 17.80 L (40.00-60.00) mg/dL Microbiology - Last 24 Hours (Table) 10/04/21 17:07 Blood Culture - Preliminary Blood No Growth after 48 hours 10/04/21 15:14 Urine Culture - Final Urine,Voided Escherichia coli Assessment and Plan Plan: Acute pyelonephritis, with sepsis as evidenced by fever leukocytosis Acute kidney injury, creatinine on presentation 2.03 patient was started on IV fluid normal saline will monitor closely. Creatinine improving to 1.5 Bilateral flank pain, no evidence of kidney stones on computed tomography scan of the abdomen and pelvis, possibly patient has passed a stone prior to presentation Underlying history of fibromyalgia Elevated liver enzymes including AST ALT and alkaline phosphatase, patient is postcholecystectomy no evidence of liver mass on computed tomography scan Patient was admitted to medical floor she was started on IV antibiotic Rocephin She was started on IV fluid normal saline At this time will add abdomen ultrasound for further evaluation of liver and to further rule out kidney stones Will consult infectious disease Maintained on IV antibiotics Urine and blood cultures pending Will follow closely
[2021-10-07] MEDS: Acetaminophen-Codeine 300-30mg TAB PO PRN ×3 (13:12→21:26)
[2021-10-07] MEDS: SODIUM CHLORIDE 0.9% 1,000 ML IV SCH (15:06)
[2021-10-07] MEDS: ATORVASTATIN 10 MG TAB PO SCH (16:42)
[2021-10-08] MEDS: Acetaminophen-Codeine 300-30mg TAB PO PRN (04:36)
[2021-10-08] MEDS: LEVOTHYROXINE 25 MCG TAB PO SCH (04:36)
[2021-10-08] MEDS: SODIUM CHLORIDE 0.9% 1,000 ML IV SCH (07:15)
[2021-10-08] MEDS: clonazePAM 0.5 MG TAB PO SCH ×2 (08:46→11:45)
[2021-10-08] MEDS: PANTOPRAZOLE 40 MG TABLET PO SCH (08:47)
[2021-10-08] MEDS: buPROPion XL 150 MG TAB.ER.24H PO SCH (08:47)
[2021-10-08] MEDS: LOSARTAN 50 MG TAB PO SCH (08:47)
[2021-10-08] MEDS: lamoTRIgine 25 MG TAB PO SCH (08:47)
[2021-10-08] MEDS: METOPROLOL TARTRATE 25 MG TAB PO SCH (08:47)
[2021-10-08] MEDS: CHOLECALCIFEROL 125 MCG (5000 IU) TABLET PO SCH (08:47)
[2021-10-08] MEDS: MULTIVITAMINS, THERA 1 EACH TAB PO SCH (08:47)
[2021-10-08] MEDS: ENOXAPARIN 40 MG/0.4 ML SYRINGE SQ SCH (08:48)
[2021-10-08] MEDS: KETOTIFEN 0.025% OPHTH DROPS 5 ML BTL BOTH EYES SCH (08:48)
[2021-10-08] MEDS: DOCUSATE 100 MG CAP PO PRN (08:57)
[2021-10-08] MEDS: DULoxetine HCL 30 MG CAPSULE.DR PO SCH (08:58)
--- NOTE | 2021-10-08 09:58 | P.DS ---
Providers Date of admission: 10/05/21 08:50 Expected date of discharge: 10/08/21 Attending physician: Gonsalo Evans Consults: 10/05/21 20:02 Consult Physician Routine Consulting Provider: Cr James Consult Reason/Comments: sepsis Do you want consulting provider notified?: Yes Primary care physician: Diamante Bynum [facility] Course: Discharge diagnosis Acute pyelonephritis, with sepsis as evidenced by fever leukocytosis Acute kidney injury, creatinine on presentation 2.03 patient was started on IV fluid normal saline will monitor closely. Creatinine improving to 1.5 Bilateral flank pain, no evidence of kidney stones on computed tomography scan of the abdomen and pelvis, possibly patient has passed a stone prior to presentation Underlying history of fibromyalgia Elevated liver enzymes including AST ALT and alkaline phosphatase, patient is postcholecystectomy no evidence of liver mass on computed tomography scan Hospital course Dee Ellison, is a 71 year old male who presented to [facility] emergency room with a chief complaint of fever weakness generalized body pain and cough. She was evaluated in the emergency room vital examination on presentation revealed a temperature of 97.7 pulse 52 respiration 18 blood pressure 99/45 pulse ox 97% on room air Laboratory data revealed a white blood count of 16.3 hemoglobin 11.1 platelet count 282 sodium 133 potassium 3.7 chloride 99 CO2 21 BUN 24 creatinine 2.03 Testing in the emergency room revealed computed tomography scan of the abdomen and pelvis done in the emergency room showed sign of pyelonephritis or possibly recently passed ureteral calculus Patient was admitted to medical floor for further evaluation and treatment, she was started on IV fluid Past medical history is significant for history of fibromyalgia history of migraine headache and a cluster headache 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 Patient reports some improvement with generalized body pain. Urine culture currently growing gram-negative bacilli. Infectious disease services have been consulted. Patient remains on Rocephin. Repeat labs have been ordered. Current vital signs temp 98.1, heart rate 85, respiratory rate 16, blood pressure 123/69 and pulse ox of 95% on room air 10/07/2021 patient was seen and examined on the medical floor she is alert and oriented 3 in no apparent distress she is complaining of generalized weakness and body aches otherwise she denies any complaints, there is no fever or chills no headache or dizziness no chest pain no shortness of breath no cough no nausea or vomiting no abdominal pain no diarrhea and no urinary symptoms. patien is admitted with pyelonephritis, continue with IV antibiotics and IV fluids, improving gradually will follow in a.m. On 10/08/2021 patient's alert and oriented 3. White blood cell has normalized to 8.31 patient has remained afebrile. Patient has shown no reaction to IV Rocephin. Urine culture has finalized to E. coli sensitive to cephalosporins. At this time will discharge patient on Ceftin 500 twice a day for 7 days. Patient to follow-up with PCP for further management Patient Condition at Discharge: Stable Plan - Discharge Summary Discharge Rx Participant: No New Discharge Prescriptions: New Cefuroxime Axetil [Ceftin] 500 mg PO BID 7 Days #14 tab Continue Multivitamins, Thera [Multivitamin (formulary)] 1 tab PO DAILY Levothyroxine Sodium [Synthroid] 25 mcg PO DAILY buPROPion XL [Wellbutrin XL] 450 mg PO DAILY lamoTRIgine [LaMICtal] 50 mg PO BID@0800,1800 clonazePAM [KlonoPIN] 0.75 mg PO TID@0900,1200,1800 Docusate [Colace] 100 mg PO BID PRN PRN Reason: Constipation Rosuvastatin Calcium [Crestor] 5 mg PO HS@1800 Lansoprazole [Prevacid] 30 mg PO DAILY Losartan [Cozaar] 50 mg PO DAILY DULoxetine HCL [Cymbalta] 30 mg PO DAILY Olopatadine HCl [Pataday Once Daily Relief] 1 drop BOTH EYES DAILY Metoprolol Tartrate [Lopressor] 25 mg PO BID@0900,1800 Nitroglycerin Sl Tabs [Nitrostat] 0.4 mg SL Q5M PRN PRN Reason: Chest Pain Cholecalciferol (Vitamin D3) [Vitamin D3 (125 MCG = 5,000 IU)] 125 mcg PO DAILY Discharge Medication List Levothyroxine Sodium [Synthroid] 25 mcg PO DAILY 12/12/15 [History] Multivitamins, Thera [Multivitamin (formulary)] 1 tab PO DAILY 12/12/15 [History] buPROPion XL [Wellbutrin XL] 450 mg PO DAILY 03/25/18 [History] lamoTRIgine [LaMICtal] 50 mg PO BID@0800,1800 04/17/18 [History] clonazePAM [KlonoPIN] 0.75 mg PO TID@0900,1200,1800 04/30/18 [History] Docusate [Colace] 100 mg PO BID PRN 08/08/19 [History] Lansoprazole [Prevacid] 30 mg PO DAILY 08/08/19 [History] Losartan [Cozaar] 50 mg PO DAILY 08/08/19 [History] Rosuvastatin Calcium [Crestor] 5 mg PO HS@1800 08/08/19 [History] DULoxetine HCL [Cymbalta] 30 mg PO DAILY 02/12/20 [History] Cholecalciferol (Vitamin D3) [Vitamin D3 (125 MCG = 5,000 IU)] 125 mcg PO DAILY 10/04/21 [History] Metoprolol Tartrate [Lopressor] 25 mg PO BID@0900,1800 10/04/21 [History] Nitroglycerin Sl Tabs [Nitrostat] 0.4 mg SL Q5M PRN 10/04/21 [History] Olopatadine HCl [Pataday Once Daily Relief] 1 drop BOTH EYES DAILY 10/04/21 [History] Cefuroxime Axetil [Ceftin] 500 mg PO BID 7 Days #14 tab 10/08/21 [Rx] Follow up Appointment(s)/Referral(s): Diamante Bynum MD [Primary Care Provider] - 1-2 days Activity/Diet/Wound Care/Special Instructions: Activity as tolerated Diet heart healthy Discharge Disposition: HOME SELF-CARE
[2021-10-08 10:06] VITALS: BP 130/77; PULSE 72; RESP 16; TEMP 99.7
== END 2021-10-08 12:00 | disposition home or self-care (01) | DRG 872 ==
LOC: EC 13:36 → 6NMEDSUR 17:08 → OBSVTOIN 10-05 08:50 → 4SSUR 10-07 00:38
PROVIDERS: ADMIT Internal Medicine; ATTEND Internal Medicine
DX: A41.59 Other Gram-negative sepsis (principal); N10 Acute pyelonephritis; N17.9 Acute kidney failure, unspecified; F32.A Depression, unspecified; J44.9 Chronic obstructive pulmonary disease, unspecified; F41.9 Anxiety disorder, unspecified; E03.9 Hypothyroidism, unspecified; M79.7 Fibromyalgia; Z20.822 Contact with and (suspected) exposure to COVID-19; Z85.828 Personal history of other malignant neoplasm of skin; Z87.442 Personal history of urinary calculi; Z87.891 Personal history of nicotine dependence; Z79.890 Hormone replacement therapy; Z79.899 Other long term (current) drug therapy; Z87.19 Personal history of other diseases of the digestive system; Z87.898 Personal history of other specified conditions; Z90.49 Acquired absence of other specified parts of digestive tract
CPT/HCPCS: 36415; 71046; 74176; 76700; 80048; 80053; 80061; 81001; 82550; 83605; 84443; 85025; 87040; 87077; 87086; 87186; 87635; 93005; 96361; 96374; 99285

== ENCOUNTER → 2021-12-05 | Outpatient (CLI) | payer MEDICARE ==
[2021-12-05 15:27] LABS: INR 0.9 (<1.2); Partial Thromboplastin Time 23.2 sec (22.0-30.0); Prothrombin Time 10.2 sec (9.0-12.0)
[2021-12-05 18:25] LABS: HCT 41.5 % (37.2-46.3); HGB 12.7 g/dL (12.0-15.0); MCH 27.6 pg (27.0-32.0); MCHC 30.6 g/dL (32.0-37.0); MCV 90.2 fL (80.0-97.0); Mean Platelet Volume 10.9 fL (9.5-12.2); NRBC Per 100 WBC 0 /100 WBCS (0.0-0.0); Platelet Count 318 X 10*3/uL (140-440); RDW 13.1 % (11.5-14.5); WBC 7.63 X 10*3/uL (4.50-10.00)
[2021-12-05 19:07] LABS: African American GFR (CKD) 59.8 (60.0-200.0); Albumin 4.6 g/dL (3.8-4.9); Albumin/Globulin Ratio 1.8 (1.60-3.17); Anion Gap 10.2 mmol/L (10.00-18.00); BUN/Creat Ratio 21.57 Ratio (12.00-20.00); Blood Urea Nitrogen 23.3 mg/dL (9.0-27.0); Calcium 10.1 mg/dL (8.7-10.3); Carbon Dioxide 27.6 mmol/L (20.0-27.5); Globulin 2.6 g/dL (1.6-3.3); Non-African American GFR(CKD) 51.6 (60.0-200.0); Potassium 4.9 mmol/L (3.5-5.5); Total Bilirubin 0.2 mg/dL (0.30-1.20); Total Protein 7.1 g/dL (6.2-8.2)
[2021-12-05 19:22] LABS: Appearance,Urine Clear (Clear); Bacteria,Urine None Seen /HPF (None Seen); Bilirubin,Urine Small (Negative); Blood,Urine Negative (Negative); Color,Urine Dark Yellow (Yellow); Ketones,Urine Trace mg/dL (Negative); Nitrite,Urine Negative (Negative); PH, Urine 5.5 (5.0-8.0); Specific Gravity,Urine 1.022 (1.001-1.030); Urobilinogen,Urine 0.2 (0.2,1.0)
== END | disposition home or self-care (01) ==
LOC: LABPAT 13:15
PROVIDERS: ATTEND Orthopaedic Surgery
DX: Z01.818 Encounter for other preprocedural examination (principal)
CPT/HCPCS: 80053; 81001; 85027; 85610; 85730; 87070

== ENCOUNTER → 2022-02-06 | Outpatient (CLI) | payer MEDICARE ==
--- NOTE | 2022-02-06 17:38 | BD ---
EXAMINATION TYPE: Axial Bone Density DATE OF EXAM: 02/06/2022 CLINICAL HISTORY: 72 years year old Female. ICD-10 CODE: Z78.0 ASYMPTOMATIC MENOPAUSAL STATE Height: 5 FT 6 IN Weight: 168 FRAX RISK QUESTIONS: Alcohol (3 or more units per day): O Family History (Parent hip fracture): NO Glucocorticoids (More than 3mos): NO (Ex: prednisone, prednisolone, methylprednisolone, dexamethasone, and hydrocortisone). History of Fracture in Adulthood: YES Secondary Osteoporosis: 1. Type 1 Diabetes: NO 2. Hyperthyroidism: NO 3. Menopause before 45: YES 4. Malnutrition: NO 5. Chronic liver disease: NO Rheumatoid Arthritis: NO Current Tobacco Use: NO RISK FACTORS HISTORY OF: History of Wrist Fracture: TR WRISTS When: 13 YEARS AGO Surgery to Spine/Hip(right/left)/Wrist (right/left): RT HIP REPLACED, TR WRISTS SURG WITH PINS AGE [age] When: 2021 Family History of Osteoporosis: YES Active: NO Diet low in dairy products/other sources of calcium: NO Postmenopausal woman: YES Take estrogen and/or progesterone medications: NONE Lost more than 2 inches in height since high school: NO Frequent falls: YES Poor Health: GOOD Hyperparathyroidism: NO Adrenal Insufficiency: NO MEDICATIONS: Thyroid Medications: YES Which medication: SYNTHROID How Lon-3 YEARS Additional Medications: SYNTHROID, KLONOPIN, LAMICTAL, PREVACID, WELLBUTRIN, CYMBALTA, LOSARTAN, CRE STO, METOPROLOL, NITRO, Additional History: EXAM MEASUREMENTS: Bone mineral densitometry was performed using the [employer] System. Bone mineral density as measured about the Lumbar spine is: ----- L1-L4(G/cm2): 1.023 T Score Values are as follows: ----- L1: -1.9 ----- L2: -2.1 ----- L3: -0.3 ----- L4: -1.2 ----- L1-L4: -1.3 Bone mineral density has: DECREASED -3.6 % since study of: 2018 Bone mineral density about the L hip (g/cm2): 0.795 T Score values are as follows: -----L Neck: -1.7 -----L Total: -1.2 Bone mineral density has: DECREASED -3.3 % since study of: 2019 FRAX%s: The graph provided illustrates a 22.3 % chance for a major osteoporotic fx and a 4.5 % chance for the hips probability for fx in 10 years time. IMPRESSION: Osteopenia (T Score between -2.5 and -1). There is slightly increased risk of fracture and the patient may be considered for treatment. Re-Screen 2-5 years. NOTE: T-SCORE=SD OF THE YOUNG ADULT MEAN.
--- NOTE | 2022-02-08 07:32 | MM ---
Reason for Exam: Screening (asymptomatic). Last mammogram was performed 1 year(s) and 9 month(s) ago. Patient History: Menarche at age 13. First Full-Term at age 21. Left ovary removed at age 41. Postmenopausal. Other cancer. Paternal cousin had breast cancer, age 71. Sister had breast cancer, age 74. Risk Values: Sandra 5 year model risk: 3.4%. NCI Lifetime model risk: 8.6%. Prior Study Comparison: 04/21/2018 Right Diagnostic Mammogram, [facility]. 12/10/2018 Bilateral Diagnostic Mammogram, [facility]. 05/31/2020 Bilateral Screening Mammogram, [facility]. Tissue Density: There are scattered fibroglandular densities. Findings: Analyzed By CAD. Chronic nodularity is within the right breast No suspicious groups of microcalcifications, spiculated or lobular masses, architectural distortion or other secondary signs of malignancy are mammographically apparent. Overall Assessment: Benign, BI-RAD 2 Management: Screening Mammogram of both breasts in 1 year. A negative mammogram report should not preclude additional follow up of suspicious palpable abnormalities. Patient should continue monthly self breast exam. A clinical breast exam by your physician is recommended on an annual basis and results should be correlated with mammographic findings. Electronically signed and approved by: Dread Salinas D.O. Radiologis
== END | disposition home or self-care (01) ==
LOC: RADMAMWWP 12:47
PROVIDERS: ATTEND Family Medicine
DX: Z12.31 Encounter for screening mammogram for malignant neoplasm of breast (principal); M85.89 Other specified disorders of bone density and structure, multiple sites; Z78.0 Asymptomatic menopausal state; Z80.3 Family history of malignant neoplasm of breast
CPT/HCPCS: 77063; 77067; 77080

== ENCOUNTER → 2022-05-01 | Outpatient (CLI) | payer MEDICARE ==
--- NOTE | 2022-05-01 14:56 | USB ---
Reason for Exam: Clinical finding. Patient History: Menarche at age 13. First Full-Term at age 21. Left ovary removed at age 41. Postmenopausal. Other cancer. Paternal cousin had breast cancer, age 71. Sister had breast cancer, age 74. Risk Values: Sandra 5 year model risk: 3.4%. NCI Lifetime model risk: 8.6%. Technique: Method: Targeted. Prior Study Comparison: 12/10/2018 Bilateral Diagnostic Mammogram, [facility]. 05/31/2020 Bilateral Screening Mammogram, [facility]. 02/06/2022 Bilateral MG 3D screening mammo w/cad, [facility]. Findings: The area of palpable concern of the right breast and the axilla of the right breast were scanned. No solid or cystic masses are identified.. Correlate clinically. Overall Assessment: Negative, BI-RAD 1 Management: Screening Mammogram of both breasts in 9 months. A clinical breast exam by your physician is recommended on an annual basis and results should be correlated with mammographic findings. Electronically signed and approved by: Maik Conn M.D. Radiologis
== END | disposition home or self-care (01) ==
LOC: RADUSWWP 14:21
PROVIDERS: ATTEND Family Medicine
DX: N63.31 Unspecified lump in axillary tail of the right breast (principal)

== ENCOUNTER → 2022-05-30 | Outpatient (CLI) | payer MEDICARE ==
--- NOTE | 2022-05-30 12:10 | XR ---
EXAMINATION TYPE: XR chest 2V, XR ribs LT DATE OF EXAM: 05/30/2022 COMPARISON: Chest x-ray December 20, 2021 HISTORY: Chest and left-sided rib pain after recent fall injury TECHNIQUE: Frontal and lateral views of the chest are obtained. FINDINGS: There is mild chronic parenchymal change bilaterally without suspicious focal air space op acity, pleural effusion, or pneumothorax seen. The cardiac silhouette size is stable and within norm al limits. Underlying scoliosis is redemonstrated. Cholecystectomy clips are again seen. Dedicated images of the left sided ribs show no acute displaced fracture. Overlying soft tissue is un remarkable. IMPRESSION: 1. Chronic clinical changes without acute pulmonary process. 2. No acute displaced left-sided rib fracture.
== END | disposition home or self-care (01) ==
LOC: RADXRMAIN 11:32
PROVIDERS: ATTEND Registered Nurse
DX: R07.82 Intercostal pain (principal); W19.XXXA Unspecified fall, initial encounter
CPT/HCPCS: 71046

== ENCOUNTER → 2024-03-19 | Outpatient (CLI) | payer MEDICARE | END | disposition home or self-care (01) | LOC: LABPRL 12:00 | PROVIDERS: ATTEND Family Medicine | DX: Z00.00 Encounter for general adult medical examination without abnormal findings (principal); E03.9 Hypothyroidism, unspecified; R73.01 Impaired fasting glucose | CPT/HCPCS: 80053; 80061; 82306; 83036; 85027 ==

== ENCOUNTER → 2024-04-28 | Outpatient (CLI) | payer MEDICARE ==
--- NOTE | 2024-04-30 08:28 | MM ---
Reason for Exam: Screening (asymptomatic). Last mammogram was performed 2 year(s) and 2 month(s) ago. Patient History: Menarche at age 13. First Full-Term at age 21. Left ovary removed at age 41. Postmenopausal. Other cancer. Paternal cousin had breast cancer, age 71. Sister had other cancer, age 74. Risk Values: Sandra 5 year model risk: 1.6%. NCI Lifetime model risk: 3.7%. Prior Study Comparison: 12/10/2018 Bilateral Diagnostic Mammogram, [facility]. 05/31/2020 Bilateral Screening Mammogram, [facility]. 02/06/2022 Bilateral MG 3D screening mammo w/cad, [facility]. Tissue Density: The breasts are heterogeneously dense, which may obscure small masses. Findings: Analyzed By CAD. There is no suspicious group of microcalcifications or new suspicious mass in either breast. Benign-appearing lymph nodes stable in the axilla. Chronic nodularity is stable. Overall Assessment: Benign, BI-RAD 2 Management: Screening Mammogram of both breasts in 1 year. . Patient should continue monthly self-breast exams. A clinical breast exam by your physician is recommended on an annual basis. This exam should not preclude additional follow-up of suspicious palpable abnormalities. Note on Sandra scores and lifetime risk: 1. A Sandra score greater than 3% is considered moderate risk. If this is the case, consider specialist referral to assess eligibility for a risk reducing agent. 2. If overall lifetime risk for the development of breast cancer is 20% or higher, the patient may qualify for future screening with alternating mammogram and breast MRI. [facility], , 04/30/2024 8:24 AM. Electronically signed and approved by: Hi Cifuentes M.D. Radiologis
--- NOTE | 2024-05-01 19:17 | BD ---
EXAMINATION TYPE: Axial Bone Density DATE OF EXAM: 04/28/2024 CLINICAL HISTORY: 74 years old Female. ICD-10 CODE: Z78.0 ASYMP GENESIS STATE Height: 66 Weight: 168 FRAX RISK QUESTIONS: Family History (Parent hip fracture): no History of Fracture in Adulthood: yes Secondary Osteoporosis: yes 3. Menopause before 45: yes RISK FACTORS HISTORY OF: History of pito Wrist Fracture: yes When: 15 years ago Surgery Hip(right)/Wrist (right/left): yes When: 2021 MEDICATIONS: Thyroid Medications: yes Which medication: Synthroid How Lon+ years Osteoporosis Medications: no EXAM MEASUREMENTS: Bone mineral densitometry was performed using the [employer] System. Bone mineral density as measured about the Lumbar spine is: ----- L1-L4(G/cm2): 1.064 T Score Values are as follows: ----- L1: -2.0 ----- L2: -2.1 ----- L3: 0.6 ----- L4: -0.5 ----- L1-L4: -1.0 Z Score Values are as follows: ----- L1: -0.8 ----- L2: -0.8 ----- L3: 1.8 ----- L4: 0.7 ----- L1-L4: 0.3 Bone mineral density has: Increased 4.0% since study of: 02/06/2022 Bone mineral density about the L hip (g/cm2): 0.869 T Score values are as follows: -----L Neck: -2.2 -----L Total: -1.1 Z Score values are as follows: -----L Neck: -0.7 -----L Total: 0.2 Bone mineral density has: Increased 1% since study of: 02/06/2022 FRAX%s: The graph provided illustrates a 26.6% chance for a major osteoporotic fx and a 7.4% chance f or the hips probability for fx in 10 years time. IMPRESSION: Osteopenia (T Score between -2.5 and -1). There is slightly increased risk of fracture and the patient may be considered for treatment. Re-Screen 2-5 years. NOTE: T-SCORE=SD OF THE YOUNG ADULT MEAN. [facility], , 05/01/2024 7:14 PM
== END | disposition home or self-care (01) ==
LOC: RADMAMWWP 13:51
PROVIDERS: ATTEND Family Medicine
DX: Z12.31 Encounter for screening mammogram for malignant neoplasm of breast (principal); Z78.0 Asymptomatic menopausal state; Z80.3 Family history of malignant neoplasm of breast; Z90.722 Acquired absence of ovaries, bilateral; R92.333 Mammographic heterogeneous density, bilateral breasts; M81.8 Other osteoporosis without current pathological fracture
CPT/HCPCS: 77063; 77067; 77080

== ENCOUNTER → 2024-05-05 | Outpatient (CLI) | payer MEDICARE ==
--- NOTE | 2024-05-05 15:32 | XR ---
EXAMINATION TYPE: XR hand complete RT DATE OF EXAM: 05/05/2024 COMPARISON: None HISTORY: Crushed hand 3 weeks prior TECHNIQUE: 3 view right hand FINDINGS: No acute fracture or dislocation evident. Degenerative joint changes are present distal int erphalangeal joint spaces, greatest fifth digit. Some mild soft tissue swelling may be at the proxima l index finger. Degenerative joint changes are at the index finger metacarpophalangeal joint space. IMPRESSION: 1. No acute or subacute osseous abnormality. [facility], Workstation: [email or web address], 05/05/2024 3:30 PM
== END | disposition home or self-care (01) ==
LOC: RADXRMAIN 14:31
PROVIDERS: ATTEND Family Medicine
DX: M79.641 Pain in right hand (principal)